=== PATIENT | female | born 1955 | race Caucasian/White ===

== ENCOUNTER 2019-07-25 07:26 | Outpatient (RCR) | payer MEDICARE, SELFPAY | END 2019-08-12 00:01 | LOC: ONCMED 07:26 | PROVIDERS: Family Provider Nurse Practitioner Family; Visit Provider Nurse Practitioner | DX: D50.0 Iron deficiency anemia secondary to blood loss (chronic) (principal) ==

== ENCOUNTER 2019-08-14 13:52 | Outpatient (CLI) | payer MEDICARE, SELFPAY ==
--- NOTE | 2019-08-14 14:07 | XR_ITS ---
WS: [id number] Left ankle, 3 views, 08/14/2019 Clinical Data: PAIN Comparison: None. Findings: No fractures or dislocations are seen. The ankle mortise is normal. The talus and calcaneus are unrem arkable. No soft tissue swelling over the medial or lateral malleolus is seen. XR/XR ankle LT min 3V* [id number] Impression: Negative left ankle.
--- NOTE | 2019-08-14 14:07 | XR_ITS ---
WS: [id number] Left foot, 3 views, 08/14/2019 Clinical Data: PAIN Comparison: None. Findings: No fractures or dislocations are seen. No bone destruction or erosion is noted. The joint spaces and soft tissues are normal. XR/XR foot LT min 3V* [id number] Impression: Negative left foot.
== END 2019-08-14 13:53 | disposition home or self-care (01) ==
LOC: RAD 14:01
PROVIDERS: PCP Nurse Practitioner Family; Visit Provider Internal Medicine Medical Oncology
DX: M79.672 Pain in left foot (principal); M25.572 Pain in left ankle and joints of left foot
CPT/HCPCS: 73610; 73630

== ENCOUNTER 2019-09-03 05:41 | Outpatient (RCR) | payer MEDICARE, SELFPAY ==
[2019-08-27 08:45] LABS: Basophils # 0.1 10^3/uL (0.0-0.1); Basophils % 0.6 %; Eosinophils # 0.1 10^3/uL (0.0-0.8); Eosinophils % 1.5 %; Hematocrit 29.7 % (37.0-47.0); Hemoglobin 8.8 g/dL (11.5-15.3); Lymphocytes # 1.6 10^3/uL (0.8-4.8); Lymphocytes % 17.1 %; Mean Corpuscular HGB Conc 29.6 g/dL (30.0-36.0); Mean Corpuscular Hemoglobin 29.2 pg (28.0-34.0); Mean Corpuscular Volume 98.7 fL (81-99); Monocytes # 0.4 10^3/uL (0.2-0.9); Monocytes % 4.2 %; Neutrophils # 7.3 10^3/uL (1.8-7.7); Neutrophils % 76.2 %; Nucleated Red Blood Cells % 0 %; Platelet Count 514 10^3/cmm (130-400); Red Blood Count 3.01 10^6/uL (4.1-5.3); Red Cell Distribution Width 15.3 % (12.1-15.1); White Blood Count 9.5 10^3/uL (4.0-10.0)
[2019-08-27 09:03] LABS: Albumin Level 4.4 g/dL (3.5-5.2); Alkaline Phosphatase 165 IU/L (35-105); Anion Gap 16.4 (5-19); Aspartate Amino Transferase 22 U/L (0-32); Blood Urea Nitrogen 7 mg/dL (8-23); Calcium 9.2 mg/Dl (8.8-10.2); Carbon Dioxide 23 mmol/L (22-29); Chloride 100 mmol/L (98-107); Ferritin 132 ng/mL (15-150); Globulin 2.6 g/dL (1.3-4.6); Glomerular Filtration Rate 72.7 mL/min (90-130); Glucose 122 mg/dL (74-106); Iron 27 ug/dL (37-145); Percent Saturation 11.5 % (20-50); Potassium 4.4 mmol/L (3.5-5.1); Sodium 135 mmol/L (136-145); Total Bilirubin 0.2 mg/dL (0.15-1.2); Total Iron Binding Capacity 233 mg/dL; Unsaturated Iron Binding 206 ug/dL (112-347)
[2019-08-27 09:14] LABS: Alanine Aminotransferase 11 U/L (0-33)
--- NOTE | 2019-08-31 09:37 | ONC FU_ITS ---
Dr. Valero Patient Follow-Up Note Patient: Emma Porras Unit #: [id number]: 1955 Dicatated By: Harshal Valero M.D.Date of Visit:Aug 27, 2019 Onc Med Follow-up/Prog Note Chief Complaint: Anemia. History of Present Illness: This is a 64 year-old woman with recurrent iron deficiency anemia. Her laboratory studies from November 2012 showed a hypochromic/microcytic anemia with transferrin saturation 3% and ferritin low at 2.5 ng/mL. By the time I had seen her in January the hemoglobin was down to 7.4 g. She was given parenteral iron replacement with Venofer, which she completed in February 2013. As of July 2013 her hemoglobin was up to 12.8 g. She underwent upper and lower GI endoscopy in November. The upper endoscopy did show evidence of gastritis, which was the presumed cause for the iron deficiency. There were no significant abnormalities noted on the colonoscopy. She did complain of generalized abdominal pain following the procedure, which continued to worsen gradually after she returned home. On evaluation in the emergency room she was found to have a subcapsular splenic hematoma. Her hemoglobin dropped to 6.0 g, at which point she was admitted to the hospital for transfusion. The hematoma stabilized, and she was able to be managed conservatively. Her clinical course, though, was complicated by transfusion associated lung injury, but she did recover uneventfully. During subsequent followup she had remained moderately anemic, and she had persistently elevated sedimentation rate and CRP level. She was treated again with Venofer in June 2014 after her hemoglobin had dropped back down to 8.4 g. With that course of treatment she received a total of 1400 mg, but a followup CBC in September 2014 showed that she was still moderately anemic with a hemoglobin of 9.8 g. At that point she was started back on Venofer infusions, and she then completed an additional 1200 mg total dosage. On a followup visit in November her hemoglobin was adequate at 11.6 g, but the transferrin saturation was back down to 5%, and at that time I did restart Venofer. As of 01/01/2015 she had completed another course of treatment to a total dose of 1000 mg. Following her course of parenteral iron replacement in December 2014 she underwent further GI evaluation in [place]. She was found on capsule endoscopy to have an actively bleeding AVM in the small intestine. On 04/07/2015 she underwent double-balloon enteroscopy with APC by Dr. Royer West. At that time she was confirmed to have multiple AVMs throughout the small intestine. According to the procedure note, APC was applied to a total of 8 AVMs. She tolerated the procedure well. During subsequent follow-up she had continued to require parenteral iron replacement on a fairly regular basis. This included 2 infusions of Injectafer during the remainder of 2014, a total of 4 infusions of Injectafer during 2015, 6 infusions during 2016, and 4 infusions during 2017. By the end of April she had received a total of 7 infusions during 2019. Her other medical illnesses include fibromyalgia, degenerative arthritis, GERD, and anxiety/depression. She does have a history of smoking up to 2 packs of cigarettes daily for 35 years. She has been trying to quit. INTERIM HISTORY: As of 06/02/2019 her hemoglobin was still moderately decreased at 9.4 g. Her transferrin saturation was low at 16%, and she was then given 1 additional infusion of Injectafer. At her follow-up visit on 07/03/2019 her hemoglobin had dropped to 7.7 g. The red cell indices were macrocytic with MCV 104 and MCH 31. Her transferrin saturation was normal at 34% and a ferritin was normal at 358 ng/mL. She was transfused 2 units PRBC. Her stool was retested and was negative for occult blood by IFOB. Her repeat CBC on 05/25/2019 showed hemoglobin moderately decreased at 10.4 g with white blood cell count 9500 and platelet count 493,000. The red cell indices were in the upper normal range. She is seen for a follow-up visit. She continues to complain that she is tired, but she is still working. ECOG score is 1. She does not have much appetite, but her weight is stable. She has no fever or night sweats. She says her breathing is fine. She has just occasional cough. She is still smoking 1 pack of cigarettes daily. She does not complain of chest pain. She has no GI complaints other than occasional heartburn. She says her stools are dark. She has not been aware of any blood in the stool. She has urinary frequency with some urgency/incontinence. She says her pain is terrible, mainly in the neck and back. She also has been having pain and swelling in her left ankle, and she complains that her left knee catches. She sometimes has headache. She occasionally has numbness in her feet. Medications: ALPRAZolam 1 Tablet (of 0.5 mg) Oral t.i.d. PRN, Ditropan XL 1 (10 mg) Tablet SR 24 HR Oral daily PRN, Estradiol 1 (1 mg) Tablet Oral daily, FLUoxetine HCl 3 Tablet (of 20 mg) Capsule Oral daily, HYDROcodone-Acetaminophen 1 Tablet (of 7.5-325 mg) Oral q 4 hours PRN, Montelukast Sodium 10 mg - Take 1 Tablet Oral daily, Protonix 1 (40 mg) Tablet, enteric coated Oral daily, Topiramate 25 mg - Take 1 Tablet Oral daily, Vitamin D3 2000 Units - Take 1 Tablet Oral daily Allergies: Codeine Phosphate and Penicillin G Benzathine. Review of Systems: Constitutional - She feels tired. She is working, though. Appetite has not been very good, but her weight is stable. No fever or night sweats. ECOG score is 1, ENMT - No sinus congestion/drainage. No mouth sores. No sore throat or difficulty swallowing, Hematologic/Lymphatic - She bruises easily, Respiratory - She says her breathing is fine. She has just occasional cough. No pleuritic pain or hemoptysis, Cardiovascular - No angina pain. No palpitations, Gastrointestinal - No nausea or vomiting. She sometimes has heartburn. Bowel have been OK, but her stools have been dark. She has not been aware of any blood in the stool, Genitourinary (F) - No dysuria or hematuria. She has urinary frequency and some urgency/incontinence, Musculoskeletal - She says her pain has been terrible, mostly in the back and neck. She also has pain in her left ankle, and she complains that her left knee catches, Integumentary - No skin complications, Neurologic - She sometimes has headache. She has dizziness if she turns too fast. She occasionally has numbness and in her feet, Psychiatric - Her depression is adequately managed. She sometimes has difficulty sleeping. Vital Signs: Performed on Aug 27, 2019 10:03 Height - 57.00 in Weight - 104.8 lbs (HIGH) BSA - 1.37 sq.m BMI - 22.68 Temperature - 98.5 F Pulse - 78 /min Respiration - 22 /min BP - 119/58 mm(hg) O2 Sat - 99 % Pain - 6 Physical Examination: Constitutional - She looks pretty good generally, Eyes - Sclerae nonicteric. Conjunctivae clear, ENMT - No lesions noted in the oral cavity, Hematologic/Lymphatic - No cervical, clavicular, or axillary adenopathy, Respiratory - Lungs are clear with diminished air movement bilaterally, Cardiovascular - Heart rhythm is regular. There is a II/ systolic murmur. There is no gallop or rub noted, Abdomen - Soft. Liver and spleen are not enlarged. There is no abdominal mass or ascites noted and there is no inguinal adenopathy, Extremities - No edema, Neurologic - No focal neurologic deficits noted. Lab/Imaging: Test performed on Aug 27, 2019 08:20 Ferritin 132 ng/mL % Iron Saturation 11.5 % Glucose 122 mg/dL BUN 7 mg/dL Iron, Total 27 mcg/dL Creatinine 0.8 mg/dL TIBC 233 mcg/dL Cr Clearance (Est) 54.72 mL/min Sodium 135 mmol/L Potassium 4.4 mmol/L Chloride 100 mmol/L CO2 23 mmol/L Calcium 9.2 mg/dL Protein, Total 7.0 g/dL Albumin 4.4 g/dL Bilirubin, Total 0.2 mg/dL Alkaline Phosphatase 165 IU/L AST (SGOT) 22 IU/L ALT (SGPT) 11 IU/L WBC 9.5 10^9/L RBC 3.01 10^12/L HGB 8.8 g/dL HCT 29.7 % MCV 98.7 fl MCH 29.2 pg MCHC 29.6 g/dL RDW 15.3 % Platelet Count 514 10^9/L MPV 10.0 fL Neutrophils (Gran) 7.3 10^9/L Lymphocytes 1.6 10^9/L Monocytes 0.4 10^9/L Eosinophils 0.1 10^9/L Basophils 0.1 10^9/L Manual Lymphocytes 17.1 % Manual Monocytes 4.2 % Manual Eosinophils 1.5 % Manual Basophils 0.6 % NRBCs 0.0 /100 WBC Impression: 1. Patient was initially seen in January 2013 for recurrent iron deficiency anemia. She had a good response to parenteral iron replacement with Venofer. Her previous GI evaluation with upper and lower endoscopy had shown evidence of gastritis, which was the presumed cause for the iron deficiency. 2. The colonoscopy procedure was complicated by a subcapsular splenic hematoma. It was able to be managed conservatively, but the hematoma did result in a significant drop in her hemoglobin level, and she did require admission to the hospital for transfusion. She subsequently developed acute transfusion related lung injury, but she did have a good recovery. 3. During subsequent follow-up she has had recurrent episodes of iron deficiency anemia. At least some component has been be due to GI blood loss. I have suspected that some component may be due to inadequate oral iron absorption. 4. In March she did undergo enteroscopy/APC for multiple small intestine AVMs. She tolerated the procedure well. On her follow-up visit in May 2015 she was significantly anemic again, with hemoglobin back down to 8.1 g. Chemistry studies were clearly consistent with iron deficiency. She was then given parenteral iron replacement with Injectafer, which she completed in June 2015. She again had a very good clinical response. 5. She required additional infusions of Injectafer in January 2016 and again in March/April 2016. Her other medical illnesses include: 6. GERD. 7. Degenerative arthritis/fibromyalgia with chronic pain. 8. Anxiety/depression. 9. She has nicotine dependence (cigarettes). During followup she has continued to have recurrent episodes of iron deficiency. She has been given parenteral parenteral iron replacement with Injectafer on multiple occasions. It is presumed to have been due to GI blood loss, though it has not actually been documented. In June 2019 her hemoglobin had dropped to as low as 7.7 g, at which point she was given a transfusion of 2 units PRBC. Her stool was subsequently retested and was negative for occult blood by IFOB. At this point she remains moderately anemic. Her transferrin saturation is back down to 11%, so that she may be iron deficient again. Plan: She will be given parenteral iron replacement with 2 infusions of Injectafer. If there is not significant improvement in her anemia, she will then be scheduled for bone marrow aspiration/biopsy. In the meantime, I will have her evaluated orthopedic clinic for her left ankle pain and swelling. Signed By: Harshal Valero M.D. <<Signature on File>>
[2019-09-03 11:24] LABS: Basophils # 0.1 10^3/uL (0.0-0.1); Basophils % 0.5 %; Eosinophils # 0.1 10^3/uL (0.0-0.8); Eosinophils % 1.3 %; Hematocrit 26.9 % (37.0-47.0); Hemoglobin 8.2 g/dL (11.5-15.3); Lymphocytes # 1.2 10^3/uL (0.8-4.8); Lymphocytes % 12.5 %; Mean Corpuscular HGB Conc 30.5 g/dL (30.0-36.0); Mean Corpuscular Hemoglobin 30.8 pg (28.0-34.0); Mean Corpuscular Volume 101.1 fL (81-99); Mean Platelet Volume 10.3 fL (7.4-10.4); Monocytes # 0.3 10^3/uL (0.2-0.9); Monocytes % 2.7 %; Neutrophils # 7.5 10^3/uL (1.8-7.7); Neutrophils % 81.5 %; Nucleated Red Blood Cells % 0 %; Platelet Count 470 10^3/cmm (130-400); Red Blood Count 2.66 10^6/uL (4.1-5.3); Red Cell Distribution Width 17.5 % (12.1-15.1); White Blood Count 9.2 10^3/uL (4.0-10.0)
[2019-09-03 11:34] LABS: Ferritin 584 ng/mL (15-150); Iron 58 ug/dL (37-145); Total Iron Binding Capacity 232 mg/dL; Unsaturated Iron Binding 174 ug/dL (112-347)
--- NOTE | 2019-09-04 06:42 | ONC FU_ITS ---
Dr. Valero Patient Follow-Up Note Patient: Emma Porras Unit #: [id number]: 1955 Dicatated By: Harshal Valero M.D.Date of Visit:Sep 03, 2019 Onc Med Follow-up/Prog Note Chief Complaint: Anemia. History of Present Illness: This is a 63 year-old woman with persistent anemia. Her laboratory studies from November 2012 showed a hypochromic/microcytic anemia with transferrin saturation 3% and ferritin low at 2.5 ng/mL. By the time I had seen her in January the hemoglobin was down to 7.4 g. She was given parenteral iron replacement with Venofer, which she completed in February 2013. As of July 2013 her hemoglobin was up to 12.8 g. She underwent upper and lower GI endoscopy in November. The upper endoscopy did show evidence of gastritis, which was the presumed cause for the iron deficiency. There were no significant abnormalities noted on the colonoscopy. She did complain of generalized abdominal pain following the procedure, which continued to worsen gradually after she returned home. On evaluation in the emergency room she was found to have a subcapsular splenic hematoma. Her hemoglobin dropped to 6.0 g, at which point she was admitted to the hospital for transfusion. The hematoma stabilized, and she was able to be managed conservatively. Her clinical course, though, was complicated by transfusion associated lung injury, but she did recover uneventfully. During subsequent followup she had remained moderately anemic, and she had persistently elevated sedimentation rate and CRP level. She was treated again with Venofer in June 2014 after her hemoglobin had dropped back down to 8.4 g. With that course of treatment she received a total of 1400 mg, but a followup CBC in September 2014 showed that she was still moderately anemic with a hemoglobin of 9.8 g. At that point she was started back on Venofer infusions, and she then completed an additional 1200 mg total dosage. On a followup visit in November her hemoglobin was adequate at 11.6 g, but the transferrin saturation was back down to 5%, and at that time I did restart Venofer. As of 01/01/2015 she had completed another course of treatment to a total dose of 1000 mg. Following her course of parenteral iron replacement in December 2014 she underwent further GI evaluation in [place]. She was found on capsule endoscopy to have an actively bleeding AVM in the small intestine. On 04/07/2015 she underwent double-balloon enteroscopy with APC by Dr. Royer West. At that time she was confirmed to have multiple AVMs throughout the small intestine. According to the procedure note, APC was applied to a total of 8 AVMs. She tolerated the procedure well. During subsequent follow-up she had continued to require parenteral iron replacement on a fairly regular basis. This included 2 infusions of Injectafer during the remainder of 2014, a total of 4 infusions of Injectafer during 2015, 6 infusions during 2016, and 4 infusions during 2017. By the end of April she had received a total of 7 infusions during 2019. Her other medical illnesses include fibromyalgia, degenerative arthritis, GERD, and anxiety/depression. Surgeries include hysterectomy/bilateral salpingo-oophorectomy in 1997, laparascopic cholecystectomy in 2007, and cystoscopy/anterior repair in January,. She underwent lumbar laminectomy in 2003 and cervical laminectomy/fusion in 2004. She also has had surgery on both elbows. She has a history of smoking up to 2 packs of cigarettes daily for 35 years. She has been trying to quit. Family history is significant for father having of pancreatic cancer at age 62 and mother having of lung cancer at age 76. A brother has hypertension and diabetes and a sister has heart disease. INTERIM HISTORY: As of 06/02/2019 her hemoglobin was still moderately decreased at 9.4 g. Her transferrin saturation was low at 16%, and she was then given 1 additional infusion of Injectafer. At her follow-up visit on 07/03/2019 her hemoglobin had dropped to 7.7 g. The red cell indices were macrocytic with MCV 104 and MCH 31. Her transferrin saturation was normal at 34% and a ferritin was normal at 358 ng/mL. She was transfused 2 units PRBC. Her stool was retested and was negative for occult blood by IFOB. Her repeat CBC on 07/25/2019 showed hemoglobin moderately decreased at 10.4 g with white blood cell count 9500 and platelet count 493,000. The red cell indices were in the upper normal range. As of 08/27/2019 the hemoglobin was back down to 8.8 g. Her serum iron studies at that point showed low transferrin saturation at 11.5%, and with that finding, I did opt to give her another infusion of Injectafer. She is seen for a follow-up visit. She continues to complain that she is tired, but she is still working. ECOG score is 1. She says her appetite is not that good. She does not have fever or night sweats. She does not complain of shortness of breath, cough, or chest pain. She has occasional heartburn, and she occasionally has pain in her lower abdominal area. Her stools have been loose, and they are still dark-colored. She did bring in another stool sample for IFOB, and that result is pending. She has urinary frequency and urgency. Her pain is about the same. Is mostly in her neck and back. She has headache occasionally. She has no focal neurologic symptoms. Medications: ALPRAZolam 1 Tablet (of 0.5 mg) Oral t.i.d. PRN, Ditropan XL 1 (10 mg) Tablet SR 24 HR Oral daily PRN, Estradiol 1 (1 mg) Tablet Oral daily, FLUoxetine HCl 3 Capsule (of 20 mg) Oral daily, HYDROcodone-Acetaminophen 1 Tablet (of 7.5-325 mg) Oral q 4 hours PRN, Montelukast Sodium 10 mg - Take 1 Tablet Oral daily, Protonix 1 (40 mg) Tablet, enteric coated Oral daily, Topiramate 25 mg - Take 1 Tablet Oral daily, Vitamin D3 2000 Units - Take 1 Tablet Oral daily Allergies: Codeine Phosphate and Penicillin G Benzathine. Review of Systems: Constitutional - She continues to complain that she is tired. She is still working, though. Appetite is not that good, but her weight is stable. No fever or night sweats. ECOG score is 1, ENMT - She has some sinus drainage, but not bad. No mouth sores. No sore throat or difficulty swallowing, Hematologic/Lymphatic - She bruises easily, Respiratory - No shortness of breath. No cough. No pleuritic pain or hemoptysis, Cardiovascular - No angina pain. No palpitations, Gastrointestinal - No nausea or vomiting. She has occasional heartburn. Her stools have been loose and they are still dark. She has not been aware of any blood in the stool, Genitourinary (F) - No dysuria or hematuria. She has urinary frequency and urgency, Musculoskeletal - Her pain is about the same. It is mostly in the back and neck, Integumentary - No skin complications, Neurologic - She has occasional headache. She has dizziness if she turns too fast. She sometimes has numbness and in her feet, Psychiatric - Her depression is adequately managed. She has been sleeping OK. Vital Signs: Performed on Sep 03, 2019 11:31 Height - 57.00 in Weight - 105.4 lbs (HIGH) BSA - 1.37 sq.m BMI - 22.81 Temperature - 97.1 F (LOW) Pulse - 73 /min Respiration - 18 /min BP - 145/62 mm(hg) (HIGH) O2 Sat - 100 % Pain - 0 Physical Examination: Constitutional - She does not appear acutely ill, Eyes - Sclerae nonicteric. Conjunctivae clear, ENMT - No lesions noted in the oral cavity, Hematologic/Lymphatic - No cervical, clavicular, or axillary adenopathy, Respiratory - Lungs are clear with diminished air movement bilaterally, Cardiovascular - Heart rhythm is regular. There is a II/ systolic murmur. There is no gallop or rub noted, Abdomen - Soft. Liver and spleen are not enlarged. There is no abdominal mass or ascites noted and there is no inguinal adenopathy, Extremities - No edema, Neurologic - No focal neurologic deficits noted. Lab/Imaging: Test performed on Sep 03, 2019 10:30 Ferritin 584 ng/mL WBC 9.2 10 3/uL RBC 2.66 10 6/uL HGB 8.2 g/dL HCT 26.9 % MCV 101.1 fL MCH 30.8 pg MCHC 30.5 g/dL RDW 17.5 % Platelet Count 470 10 3/cmm MPV 10.3 fL Neutrophils 7.5 10 3/uL Lymphocytes 1.2 10 3/uL Monocytes 0.3 10 3/uL Eosinophils 0.1 10 3/uL Basophils 0.1 10 3/uL Neutrophil % 81.5 % Lymphocyte % 12.5 % Monocyte % 2.7 % Eosinophil % 1.3 % Basophils % 0.5 % Impression: 1. Patient was initially seen in January 2013 for recurrent iron deficiency anemia. She had a good response to parenteral iron replacement with Venofer. Her previous GI evaluation with upper and lower endoscopy had shown evidence of gastritis, which was the presumed cause for the iron deficiency. 2. The colonoscopy procedure was complicated by a subcapsular splenic hematoma. It was able to be managed conservatively, but the hematoma did result in a significant drop in her hemoglobin level, and she did require admission to the hospital for transfusion. She subsequently developed acute transfusion related lung injury, but she did have a good recovery. 3. During subsequent follow-up she has had recurrent episodes of iron deficiency anemia. At least some component has been be due to GI blood loss. I have suspected that some component may be due to inadequate oral iron absorption. 4. In March she did undergo enteroscopy/APC for multiple small intestine AVMs. She tolerated the procedure well. On her follow-up visit in May 2015 she was significantly anemic again, with hemoglobin back down to 8.1 g. Chemistry studies were clearly consistent with iron deficiency. She was then given parenteral iron replacement with Injectafer, which she completed in June 2015. She again had a very good clinical response. 5. She required additional infusions of Injectafer in January 2016 and again in March/April 2016. Her other medical illnesses include: 6. GERD. 7. Degenerative arthritis/fibromyalgia with chronic pain. 8. Anxiety/depression. 9. She has nicotine dependence (cigarettes). During followup she has continued to have recurrent episodes of iron deficiency. She has been given parenteral parenteral iron replacement with Injectafer on multiple occasions. It is presumed to have been due to GI blood loss, though it has not actually been documented. In June 2019 her hemoglobin had dropped to as low as 7.7 g, at which point she was given a transfusion of 2 units PRBC. Her stool was subsequently retested and was negative for occult blood by IFOB. As of 08/27/2019 her hemoglobin was back down to 8.8 g. Her transferrin saturation was low at 11%. With that finding, she was given an infusion of Injectafer, and she returns today for a second Injectafer infusion. However, there has been further decline in her hemoglobin to 8.2 g, and in the absence of active blood loss, I would have to assume that iron deficiency is not the cause of her anemia. Plan: She will now be scheduled for bone marrow aspiration/biopsy with flow cytometry, cytogenetics, and a FISH panel for MDS. She will have further evaluation as indicated. Signed By: Harshal Valero M.D. <<Signature on File>>
== END 2019-09-12 23:59 | disposition home or self-care (01) ==
LOC: ONCMED 05:41
PROVIDERS: PCP Nurse Practitioner Family; Visit Provider Internal Medicine Medical Oncology
DX: D50.9 Iron deficiency anemia, unspecified (principal); M25.572 Pain in left ankle and joints of left foot; M79.7 Fibromyalgia; M19.90 Unspecified osteoarthritis, unspecified site; K21.9 Gastro-esophageal reflux disease without esophagitis; F41.8 Other specified anxiety disorders; Z98.1 Arthrodesis status; F17.210 Nicotine dependence, cigarettes, uncomplicated; F32.9 Major depressive disorder, single episode, unspecified; G89.29 Other chronic pain; Z79.891 Long term (current) use of opiate analgesic
CPT/HCPCS: 36415; 80053; 82274; 82728; 83540; 83550; 85025; 96365; 99214; J1439

== ENCOUNTER 2019-10-02 10:00 | Day surgery (SDC) | payer MEDICARE, SELFPAY ==
[2019-10-01 11:00] VITALS: BMI 22.7
--- NOTE | 2019-10-02 10:33 | ANES.PREANE2 ---
Pre-Anesthetic Assessment Pre-Anesthetic Assessment: Height/Weight: Height 1.45 m Weight 47.627 kg Proposed Procedure: Operation Date: 10/02/19 11:30 Proposed Procedures p Bone Marrow Biospy With Aspiration(Not Applicable) - Farrukh Barahona MD Social: Social History: Tobacco and No alcohol Exam: Pre-Anes Outpt Exam: alert, oriented x 3, clear to auscultation bilaterally and regular rate & rhythm Airway: Submandibular: WNL Cervical ROM: WNL MP: 1 Dentition: False (upper) and Other (poor dentation) History/ROS: No significant history except as noted Pulmonary: Pulmonary: COPD CV/HEM: CV/HEM: Anemia : : None reported Hepatic: Hepatic: None reported GI: GI: GERD (not well controlled) Metabolic: Metabolic: None reported Musc/skel: Musc/skel: OA/DJD Neuropsych: Neuropsych: Anxiety and Depression Anesthetic Plan: ASA status: 3 Anesthesia: Anesthesia Evaluation and MAC Risk of > 500 ml blood loss (7ml/kg in children): No PFSH Anesthesia PFSH: Medical History History of anemia History of gallbladder disease Surgical History History of back surgery History of elbow surgery History of neck surgery History of shoulder surgery Family History Grandmother Cancer Brother Diabetes Denies family history of Anesthesia complication Stroke Social History Smoking and tobacco status: current every day smoker Alcohol intake: never Household members: none Current occupational status: employed Current occupation: [employer] An[employer] Cardiac Studies: No Data to Display
[2019-10-02 10:53] VITALS: BP 149/59; PULSE 72; RESP 20; TEMP 36.5; O2SAT 97
[2019-10-02] MEDS: sodium chloride 0.9% 1,000 ML 30 ML (11:12)
[2019-10-02 11:44] LABS: Hematocrit 32.4 % (37.0-47.0); Hemoglobin 10.2 g/dL (11.5-15.3); Mean Corpuscular HGB Conc 31.5 g/dL (30.0-36.0); Mean Corpuscular Hemoglobin 32.8 pg (28.0-34.0); Mean Corpuscular Volume 104.2 fL (81-99); Mean Platelet Volume 10.1 fL (7.4-10.4); Platelet Count 489 10^3/cmm (130-400); Red Blood Count 3.11 10^6/uL (4.1-5.3); Red Cell Distribution Width 15.2 % (12.1-15.1); White Blood Count 8.5 10^3/uL (4.0-10.0)
[2019-10-02 12:08] VITALS: BP 116/57; PULSE 71; RESP 16; TEMP 36.3; O2SAT 99
--- NOTE | 2019-10-02 12:14 | ANE.PACU2 ---
 Inpatient post-anesthesia follow up: Airway intact: Yes Vital signs: Temperature 97.3 F Pulse Rate 71 Respiratory Rate 16 Blood Pressure 116/57 Pulse Oximetry 99 Oxygen Delivery Me thod Nasal Cannula Oxygen Flow Rate 3 Fraction of Inspir ed Oxygen Hydration adequate: Yes Nausea and vomiting: No Pain level: 1 Mental status: Baseline
[2019-10-02 12:21] VITALS: BP 130/68; PULSE 79; RESP 18; O2SAT 100
[2019-10-02 12:30] LABS: Absolute Eosinophils 0.1 10^3/cmm (0.0-0.7); Absolute Segmented Neutrophil 6.2 10/cmm (1.6-7.1); Band Neutrophils Absolute 0.8 10^3/cmm (0.0-1.2); Basophils Absolute 0.1 10^3/cmm (0.0-0.2); Eosinophils 2 %; Lymphocytes 11 %; Monocytes Absolute 0.3 10^3/cmm (0.1-0.6); Segmented Neutrophils 74 %; Total Cells Counted 100 (0-100)
[2019-10-02 12:31] LABS: Platelet Estimate Increased (Normal)
--- NOTE | 2019-10-02 16:25 | P.PCN_ITS ---
Bone Marrow Biopsy Bone Marrow Biopsy: I was consulted by [] office regarding bone marrow biopsy on [Emma chappell]. Briefly, the patient is a [64-] year old [Female] with [History of anemia]. In the Outpatient Services Department, with nursing staff and laboratory technologists in attendance, the procedure was discussed with the patient. Appropriate consent form had been signed. Appropriate alternatives, benefits and risks of procedure were discussed with the patient and she was pre- operatively assessed with a history and physical by myself and cleared for the biopsy procedure. The patient did request IV sedation and that was provided by the Anesthesia Department. And right posterior iliac area was cleaned and prepped, local anesthesia was given, 15 mL of bone marrow aspirate and core biopsy was obtained, hemostasis was obtained, patient tolerated procedure well, specimen was sent for routine histopathology, flow cytometry and cytogenetics and FISH for MDS. Postprocedure instructions were given to nursing. Thank you for allowing me to participate in this patient's care and diagnosis. Coding Level of Care Code Acute Set Key Driver for Leticia Morse
[2019-10-07 10:28] LABS: Miscellaneous Test See Scanned Lab Rpt
[2019-10-15 09:40] LABS: Clinical Indication See Report; Specimen Type See Report
[2019-10-15 09:41] LABS: Miscellaneous Test See Scanned Lab Rpt
== END 2019-10-02 12:36 | disposition home or self-care (01) ==
PROVIDERS: Internal Medicine Medical Oncology; PCP Nurse Practitioner Family; Visit Provider Internal Medicine Hematology & Oncology
PROC: 07DT3ZX Extraction of Bone Marrow, Percutaneous Approach, Diagnostic (ICD-10-PCS; CPT 38222; principal; 2019-10-02 11:30)
DX: D64.9 Anemia, unspecified (principal); J44.9 Chronic obstructive pulmonary disease, unspecified; K21.9 Gastro-esophageal reflux disease without esophagitis; M19.90 Unspecified osteoarthritis, unspecified site; Z83.3 Family history of diabetes mellitus; F17.210 Nicotine dependence, cigarettes, uncomplicated; Z79.891 Long term (current) use of opiate analgesic; M79.7 Fibromyalgia; G89.29 Other chronic pain; F41.9 Anxiety disorder, unspecified; F32.9 Major depressive disorder, single episode, unspecified
CPT/HCPCS: 12345; 36415; 38222; 85007; 85027; 85097; 88184; 88185; 88237; 88264; 88305; 88311; 88313; J2704; J7030

== ENCOUNTER 2019-12-10 08:15 | Outpatient (RCR) | payer MEDICARE, SELFPAY ==
[2019-11-19 12:01] LABS: Basophils # 0.1 10^3/uL (0.0-0.1); Basophils % 0.9 %; Eosinophils # 0.3 10^3/uL (0.0-0.8); Eosinophils % 4.4 %; Hematocrit 21.3 % (37.0-47.0); Lymphocytes # 1.3 10^3/uL (0.8-4.8); Mean Corpuscular HGB Conc 29.1 g/dL (30.0-36.0); Mean Corpuscular Hemoglobin 28.7 pg (28.0-34.0); Mean Corpuscular Volume 98.6 fL (81-99); Mean Platelet Volume 10.5 fL (7.4-10.4); Monocytes # 0.3 10^3/uL (0.2-0.9); Neutrophils # 5.6 10^3/uL (1.8-7.7); Neutrophils % 72.8 %; Nucleated Red Blood Cells % 0 %; Platelet Count 520 10^3/cmm (130-400); Red Blood Count 2.16 10^6/uL (4.1-5.3); Red Cell Distribution Width 16.5 % (12.1-15.1); White Blood Count 7.7 10^3/uL (4.0-10.0)
[2019-11-19 12:19] LABS: Chloride 98 mmol/L (98-107); Potassium 4.5 mmol/L (3.5-5.1); Sodium 133 mmol/L (136-145)
[2019-11-19 12:22] LABS: Hemoglobin 6.2 g/dL (11.5-15.3)
[2019-11-19 13:05] LABS: Alanine Aminotransferase 18 U/L (0-33); Albumin Level 3.9 g/dL (3.5-5.2); Alkaline Phosphatase 230 IU/L (35-105); Anion Gap 15.5 (5-19); Aspartate Amino Transferase 26 U/L (0-32); Blood Urea Nitrogen 12 mg/dL (8-23); Calcium 9.1 mg/dL (8.5-10.5); Carbon Dioxide 21 mmol/L (22-29); Globulin 2.8 g/dL (1.3-4.6); Glomerular Filtration Rate 56.2 mL/min (90-130); Glucose 92 mg/dL (65-115); Lactate Dehydrogenase 230 U/L (135-214); Osmolality Calculated 266 mOsm/kg (285-295); Total Bilirubin 0.2 mg/dL (0.15-1.2); Total Protein 6.7 g/dL (6.6-8.7)
[2019-11-19 13:26] LABS: Ferritin 120 ng/mL (15-150); Iron 34 ug/dL (37-145); Percent Saturation 14.4 % (20-50); Total Iron Binding Capacity 235 mcg/dl; Unsaturated Iron Binding 201 ug/dL (112-347)
[2019-11-20] VITALS (10 sets, daily range): BP systolic 114–149; BP diastolic 65–73; PULSE 67–76; RESP 18; TEMP 36.1–36.7; O2SAT 98–100
[2019-11-20] MEDS: acetaminophen 325 mg Tablet 650 MG PO (13:04)
[2019-11-20] MEDS: diphenhydrAMINE 25 mg Capsule PO (13:04)
[2019-11-20] MEDS: sodium chloride 0.9% 250 ML 999 ML IV (13:04)
[2019-11-20] MEDS: FUROsemide 10 mg/mL SDV 2mL 20 MG IV (14:46)
[2019-12-03 19:31] LABS: Basophils # 0.1 10^3/uL (0.0-0.1); Basophils % 0.6 %; Eosinophils # 0.1 10^3/uL (0.0-0.8); Eosinophils % 1.5 %; Hematocrit 32.7 % (37.0-47.0); Hemoglobin 10.1 g/dL (11.5-15.3); Lymphocytes # 1.9 10^3/uL (0.8-4.8); Mean Corpuscular HGB Conc 30.9 g/dL (30.0-36.0); Mean Corpuscular Hemoglobin 29.3 pg (28.0-34.0); Mean Corpuscular Volume 94.8 fL (81-99); Mean Platelet Volume 10.4 fL (7.4-10.4); Monocytes # 0.3 10^3/uL (0.2-0.9); Monocytes % 3.8 %; Neutrophils # 6.4 10^3/uL (1.8-7.7); Neutrophils % 72.8 %; Nucleated Red Blood Cells % 0 %; Platelet Count 560 10^3/cmm (130-400); Red Blood Count 3.45 10^6/uL (4.1-5.3); Red Cell Distribution Width 14.2 % (12.1-15.1); White Blood Count 8.8 10^3/uL (4.0-10.0)
[2019-12-10 20:06] LABS: Basophils # 0.1 10^3/uL (0.0-0.1); Basophils % 0.6 %; Eosinophils # 0.2 10^3/uL (0.0-0.8); Eosinophils % 1.8 %; Hematocrit 31.1 % (37.0-47.0); Hemoglobin 9.6 g/dL (11.5-15.3); Lymphocytes # 1.9 10^3/uL (0.8-4.8); Lymphocytes % 22.5 %; Mean Corpuscular HGB Conc 30.9 g/dL (30.0-36.0); Mean Corpuscular Hemoglobin 28.7 pg (28.0-34.0); Mean Corpuscular Volume 93.1 fL (81-99); Mean Platelet Volume 10.4 fL (7.4-10.4); Monocytes # 0.5 10^3/uL (0.2-0.9); Monocytes % 5.8 %; Neutrophils # 5.7 10^3/uL (1.8-7.7); Neutrophils % 68.8 %; Nucleated Red Blood Cells % 0 %; Platelet Count 640 10^3/cmm (130-400); Red Blood Count 3.34 10^6/uL (4.1-5.3); Red Cell Distribution Width 14.2 % (12.1-15.1); White Blood Count 8.3 10^3/uL (4.0-10.0)
== END 2019-12-11 23:59 | disposition home or self-care (01) ==
LOC: ONCMED 08:15
PROVIDERS: PCP Nurse Practitioner Family; Visit Provider Internal Medicine Medical Oncology
DX: D64.9 Anemia, unspecified (principal)
CPT/HCPCS: 36415; 36430; 80053; 82728; 83540; 83550; 83615; 85025; 86850; 86900; 86920; J1940; J7050; P9016

== ENCOUNTER 2020-01-08 06:46 | Outpatient (RCR) | payer MEDICARE, SELFPAY ==
[2019-12-17 17:34] LABS: Basophils # 0.1 10^3/uL (0.0-0.1); Basophils % 0.6 %; Eosinophils # 0.2 10^3/uL (0.0-0.8); Eosinophils % 1.4 %; Hematocrit 25.4 % (37.0-47.0); Hemoglobin 7.6 g/dL (11.5-15.3); Lymphocytes # 2.1 10^3/uL (0.8-4.8); Mean Corpuscular HGB Conc 29.9 g/dL (30.0-36.0); Mean Corpuscular Hemoglobin 28.3 pg (28.0-34.0); Mean Corpuscular Volume 94.4 fL (81-99); Mean Platelet Volume 10.4 fL (7.4-10.4); Monocytes # 0.6 10^3/uL (0.2-0.9); Monocytes % 4.8 %; Neutrophils # 9.3 10^3/uL (1.8-7.7); Neutrophils % 75.5 %; Nucleated Red Blood Cells % 0 %; Platelet Count 656 10^3/cmm (130-400); Red Blood Count 2.69 10^6/uL (4.1-5.3); Red Cell Distribution Width 15.2 % (12.1-15.1); White Blood Count 12.3 10^3/uL (4.0-10.0)
[2019-12-18] VITALS (9 sets, daily range): BP systolic 105–138; BP diastolic 62–76; PULSE 73–84; RESP 17–18; TEMP 36.2–36.8; O2SAT 98–99
[2019-12-18] MEDS: sodium chloride 0.9% 250 ML 999 ML IV (13:00)
[2019-12-18] MEDS: acetaminophen 325 mg Tablet 650 MG PO (13:00)
[2019-12-18] MEDS: diphenhydrAMINE 25 mg Capsule PO (13:14)
[2019-12-30 10:46] LABS: Basophils # 0.1 10^3/uL (0.0-0.1); Basophils % 0.5 %; Eosinophils # 0.2 10^3/uL (0.0-0.8); Eosinophils % 1.3 %; Hematocrit 29.2 % (37.0-47.0); Hemoglobin 9.1 g/dL (11.5-15.3); Lymphocytes # 1.5 10^3/uL (0.8-4.8); Lymphocytes % 13.7 %; Mean Corpuscular HGB Conc 31.2 g/dL (30.0-36.0); Mean Corpuscular Hemoglobin 28.6 pg (28.0-34.0); Mean Corpuscular Volume 91.8 fL (81-99); Mean Platelet Volume 10.6 fL (7.4-10.4); Monocytes # 0.4 10^3/uL (0.2-0.9); Monocytes % 3.5 %; Neutrophils % 80.6 %; Nucleated Red Blood Cells % 0 %; Platelet Count 589 10^3/cmm (130-400); Red Blood Count 3.18 10^6/uL (4.1-5.3); Red Cell Distribution Width 14.1 % (12.1-15.1); White Blood Count 11.2 10^3/uL (4.0-10.0)
[2020-01-06 16:03] LABS: Basophils # 0.1 10^3/uL (0.0-0.1); Basophils % 0.3 %; Eosinophils % 0.1 %; Mean Corpuscular HGB Conc 30.8 g/dL (30.0-36.0); Mean Corpuscular Hemoglobin 29.1 pg (28.0-34.0); Mean Corpuscular Volume 94.5 fL (81-99); Mean Platelet Volume 10.6 fL (7.4-10.4); Monocytes # 0.9 10^3/uL (0.2-0.9); Monocytes % 2.8 %; Neutrophils # 29.9 10^3/uL (1.8-7.7); Nucleated Red Blood Cells % 0.1 %; Platelet Count 690 10^3/cmm (130-400); Red Blood Count 2.75 10^6/uL (4.1-5.3); Red Cell Distribution Width 15.4 % (12.1-15.1)
[2020-01-06 17:00] LABS: White Blood Count 32.1 10^3/uL (4.0-10.0)
[2020-01-07 09:33] LABS: LAB Peripheral Smear Sent for Review
[2020-01-08] MEDS: sodium chloride 0.9% 250 ML 999 ML IV (08:20)
[2020-01-08 08:30] VITALS: BP 96/43; PULSE 79; RESP 18; TEMP 37.1; O2SAT 99
[2020-01-08] MEDS: acetaminophen 325 mg Tablet 650 MG PO (08:38)
[2020-01-08 09:00] VITALS: BP 103/40; PULSE 75; RESP 18; TEMP 36.8; O2SAT 99
[2020-01-08 09:30] VITALS: BP 107/52; PULSE 75; RESP 18; TEMP 36.7; O2SAT 99
[2020-01-08 09:50] VITALS: BP 107/52; PULSE 75; RESP 18; TEMP 36.7; O2SAT 99
[2020-01-08 10:15] VITALS: BP 116/46; PULSE 72; RESP 18; TEMP 36.9; O2SAT 100
[2020-01-08] MEDS: diphenhydrAMINE 25 mg Capsule PO (15:51)
[2020-01-08] MEDS: FUROsemide 10 mg/mL SDV 2mL 20 MG IV (15:52)
== END 2020-01-11 23:59 | disposition home or self-care (01) ==
LOC: ONCMED 06:46
PROVIDERS: Internal Medicine Medical Oncology; PCP Nurse Practitioner Family; Visit Provider Nurse Practitioner
DX: D50.0 Iron deficiency anemia secondary to blood loss (chronic) (principal); F41.9 Anxiety disorder, unspecified; F32.9 Major depressive disorder, single episode, unspecified; M79.7 Fibromyalgia; K21.9 Gastro-esophageal reflux disease without esophagitis
CPT/HCPCS: 36430; 82274; 85025; 86850; 86900; 86920; J1940; J7050; P9016

== ENCOUNTER 2020-02-10 06:49 | Outpatient (RCR) | payer MEDICARE, SELFPAY ==
[2020-01-13 12:05] LABS: Basophils % 0.5 %; Eosinophils # 0.1 10^3/uL (0.0-0.8); Eosinophils % 1.1 %; Hematocrit 37.8 % (37.0-47.0); Hemoglobin 11.9 g/dL (11.5-15.3); Lymphocytes # 1.2 10^3/uL (0.8-4.8); Lymphocytes % 16.7 %; Mean Corpuscular HGB Conc 31.5 g/dL (30.0-36.0); Mean Corpuscular Volume 92.2 fL (81-99); Mean Platelet Volume 9.7 fL (7.4-10.4); Monocytes # 0.3 10^3/uL (0.2-0.9); Monocytes % 4.2 %; Neutrophils # 5.7 10^3/uL (1.8-7.7); Nucleated Red Blood Cells % 0 %; Platelet Count 569 10^3/cmm (130-400); Red Cell Distribution Width 14.5 % (12.1-15.1); White Blood Count 7.4 10^3/uL (4.0-10.0)
[2020-01-20 14:01] LABS: Basophils % 0.4 %; Eosinophils # 0.2 10^3/uL (0.0-0.8); Eosinophils % 1.7 %; Hematocrit 34.4 % (37.0-47.0); Hemoglobin 11.1 g/dL (11.5-15.3); Lymphocytes % 20.9 %; Mean Corpuscular HGB Conc 32.3 g/dL (30.0-36.0); Mean Corpuscular Hemoglobin 29.8 pg (28.0-34.0); Mean Corpuscular Volume 92.2 fL (81-99); Mean Platelet Volume 9.7 fL (7.4-10.4); Monocytes # 0.4 10^3/uL (0.2-0.9); Monocytes % 4.2 %; Neutrophils # 6.9 10^3/uL (1.8-7.7); Neutrophils % 72.5 %; Nucleated Red Blood Cells % 0 %; Platelet Count 549 10^3/cmm (130-400); Red Blood Count 3.73 10^6/uL (4.1-5.3); Red Cell Distribution Width 14.5 % (12.1-15.1); White Blood Count 9.6 10^3/uL (4.0-10.0)
[2020-01-27 14:06] LABS: Basophils # 0.1 10^3/uL (0.0-0.1); Basophils % 0.7 %; Eosinophils # 0.2 10^3/uL (0.0-0.8); Hematocrit 25.5 % (37.0-47.0); Hemoglobin 7.9 g/dL (11.5-15.3); Mean Corpuscular Hemoglobin 28.6 pg (28.0-34.0); Mean Corpuscular Volume 92.4 fL (81-99); Mean Platelet Volume 10.2 fL (7.4-10.4); Monocytes # 0.4 10^3/uL (0.2-0.9); Monocytes % 3.5 %; Neutrophils # 7.4 10^3/uL (1.8-7.7); Neutrophils % 73.3 %; Nucleated Red Blood Cells % 0 %; Platelet Count 551 10^3/cmm (130-400); Red Blood Count 2.76 10^6/uL (4.1-5.3); Red Cell Distribution Width 15.2 % (12.1-15.1); White Blood Count 10.1 10^3/uL (4.0-10.0)
[2020-01-29 13:00] VITALS: BP 125/48; PULSE 87; RESP 18; TEMP 36.6; O2SAT 100
[2020-01-29] MEDS: sodium chloride 0.9% 250 ML 999 ML IV (13:00)
[2020-01-29] MEDS: acetaminophen 325 mg Tablet 650 MG PO (13:00)
[2020-01-29] MEDS: diphenhydrAMINE 25 mg Capsule PO (16:58)
[2020-01-29] MEDS: FUROsemide 10 mg/mL SDV 2mL 20 MG IV (16:59)
[2020-02-03 14:11] LABS: Basophils # 0.1 10^3/uL (0.0-0.1); Basophils % 0.7 %; Eosinophils # 0.2 10^3/uL (0.0-0.8); Eosinophils % 1.7 %; Hematocrit 32.8 % (37.0-47.0); Hemoglobin 10.8 g/dL (11.5-15.3); Lymphocytes # 1.8 10^3/uL (0.8-4.8); Lymphocytes % 18.4 %; Mean Corpuscular HGB Conc 32.9 g/dL (30.0-36.0); Mean Corpuscular Hemoglobin 30.3 pg (28.0-34.0); Mean Corpuscular Volume 92.1 fL (81-99); Mean Platelet Volume 10.5 fL (7.4-10.4); Monocytes # 0.5 10^3/uL (0.2-0.9); Monocytes % 5.5 %; Neutrophils # 7.2 10^3/uL (1.8-7.7); Neutrophils % 73.3 %; Nucleated Red Blood Cells % 0 %; Platelet Count 440 10^3/cmm (130-400); Red Blood Count 3.56 10^6/uL (4.1-5.3); Red Cell Distribution Width 15.4 % (12.1-15.1); White Blood Count 9.9 10^3/uL (4.0-10.0)
[2020-02-10 15:10] LABS: Basophils # 0.1 10^3/uL (0.0-0.1); Basophils % 0.5 %; Eosinophils # 0.2 10^3/uL (0.0-0.8); Eosinophils % 1.8 %; Hematocrit 29.9 % (37.0-47.0); Hemoglobin 9.7 g/dL (11.5-15.3); Lymphocytes # 1.7 10^3/uL (0.8-4.8); Lymphocytes % 18.2 %; Mean Corpuscular HGB Conc 32.4 g/dL (30.0-36.0); Mean Corpuscular Hemoglobin 30.4 pg (28.0-34.0); Mean Corpuscular Volume 93.7 fL (81-99); Mean Platelet Volume 10.2 fL (7.4-10.4); Monocytes # 0.4 10^3/uL (0.2-0.9); Monocytes % 4.1 %; Nucleated Red Blood Cells % 0 %; Platelet Count 501 10^3/cmm (130-400); Red Blood Count 3.19 10^6/uL (4.1-5.3); Red Cell Distribution Width 15.2 % (12.1-15.1); White Blood Count 9.4 10^3/uL (4.0-10.0)
== END 2020-02-10 23:59 | disposition home or self-care (01) ==
LOC: ONCMED 06:49
PROVIDERS: PCP Nurse Practitioner Family; Visit Provider Internal Medicine Medical Oncology
DX: D64.9 Anemia, unspecified (principal)
CPT/HCPCS: 36415; 36430; 85025; 86850; 86900; 86920; J1940; J7050; P9016

== ENCOUNTER 2020-03-10 08:35 | Outpatient (RCR) | payer MEDICARE, SELFPAY ==
[2020-02-17 08:59] LABS: Basophils # 0.1 10^3/uL (0.0-0.1); Basophils % 0.7 %; Eosinophils # 0.2 10^3/uL (0.0-0.8); Eosinophils % 1.7 %; Hematocrit 34.3 % (37.0-47.0); Hemoglobin 10.7 g/dL (11.5-15.3); Lymphocytes # 1.6 10^3/uL (0.8-4.8); Lymphocytes % 15.7 %; Mean Corpuscular HGB Conc 31.2 g/dL (30.0-36.0); Mean Corpuscular Hemoglobin 29.6 pg (28.0-34.0); Mean Corpuscular Volume 94.8 fL (81-99); Mean Platelet Volume 10.1 fL (7.4-10.4); Monocytes # 0.4 10^3/uL (0.2-0.9); Monocytes % 4.1 %; Neutrophils # 7.6 10^3/uL (1.8-7.7); Neutrophils % 77.4 %; Nucleated Red Blood Cells % 0 %; Platelet Count 583 10^3/cmm (130-400); Red Blood Count 3.62 10^6/uL (4.1-5.3); Red Cell Distribution Width 15.3 % (12.1-15.1); White Blood Count 9.9 10^3/uL (4.0-10.0)
[2020-02-24 08:21] LABS: Basophils # 0.1 10^3/uL (0.0-0.1); Basophils % 0.5 %; Eosinophils # 0.2 10^3/uL (0.0-0.8); Eosinophils % 1.7 %; Hematocrit 29.2 % (37.0-47.0); Hemoglobin 9.1 g/dL (11.5-15.3); Lymphocytes # 1.5 10^3/uL (0.8-4.8); Lymphocytes % 15.4 %; Mean Corpuscular HGB Conc 31.2 g/dL (30.0-36.0); Mean Corpuscular Hemoglobin 29.8 pg (28.0-34.0); Mean Corpuscular Volume 95.7 fL (81-99); Mean Platelet Volume 10.4 fL (7.4-10.4); Monocytes # 0.5 10^3/uL (0.2-0.9); Monocytes % 4.8 %; Neutrophils # 7.49 10^3/uL (1.8-7.7); Neutrophils % 76.9 %; Nucleated Red Blood Cells % 0 %; Platelet Count 519 10^3/cmm (130-400); Red Blood Count 3.05 10^6/uL (4.1-5.3); Red Cell Distribution Width 15.3 % (12.1-15.1); White Blood Count 9.8 10^3/uL (4.0-10.0)
[2020-03-02 08:40] LABS: Basophils # 0.1 10^3/uL (0.0-0.1); Basophils % 0.6 %; Eosinophils # 0.3 10^3/uL (0.0-0.8); Hematocrit 28.2 % (37.0-47.0); Hemoglobin 8.5 g/dL (11.5-15.3); Lymphocytes # 1.4 10^3/uL (0.8-4.8); Mean Corpuscular HGB Conc 30.1 g/dL (30.0-36.0); Mean Corpuscular Hemoglobin 28.6 pg (28.0-34.0); Mean Corpuscular Volume 94.9 fL (81-99); Mean Platelet Volume 10.6 fL (7.4-10.4); Monocytes # 0.4 10^3/uL (0.2-0.9); Monocytes % 5.1 %; Neutrophils # 6.49 10^3/uL (1.8-7.7); Neutrophils % 74.8 %; Nucleated Red Blood Cells % 0 %; Platelet Count 568 10^3/cmm (130-400); Red Blood Count 2.97 10^6/uL (4.1-5.3); Red Cell Distribution Width 15.7 % (12.1-15.1); White Blood Count 8.7 10^3/uL (4.0-10.0)
[2020-03-09 11:33] LABS: Basophils % 0.6 %; Eosinophils # 0.2 10^3/uL (0.0-0.8); Eosinophils % 2.3 %; Hematocrit 24.5 % (37.0-47.0); Hemoglobin 7.3 g/dL (11.5-15.3); Lymphocytes # 1.5 10^3/uL (0.8-4.8); Lymphocytes % 21.2 %; Mean Corpuscular HGB Conc 29.8 g/dL (30.0-36.0); Mean Corpuscular Hemoglobin 28.3 pg (28.0-34.0); Mean Platelet Volume 10.3 fL (7.4-10.4); Monocytes # 0.4 10^3/uL (0.2-0.9); Monocytes % 5.8 %; Neutrophils % 69.7 %; Nucleated Red Blood Cells % 0 %; Platelet Count 615 10^3/cmm (130-400); Red Blood Count 2.58 10^6/uL (4.1-5.3); Red Cell Distribution Width 15.9 % (12.1-15.1); White Blood Count 6.9 10^3/uL (4.0-10.0)
[2020-03-10] VITALS (7 sets, daily range): BP systolic 95–151; BP diastolic 53–82; PULSE 72–84; RESP 18; TEMP 36.9–37; O2SAT 98–99
[2020-03-10] MEDS: acetaminophen 325 mg Tablet 650 MG PO (13:20)
[2020-03-10] MEDS: sodium chloride 0.9% 250 ML 999 ML IV (13:20)
[2020-03-10] MEDS: FUROsemide 10 mg/mL SDV 2mL 20 MG IV (16:26)
[2020-03-10] MEDS: diphenhydrAMINE 25 mg Capsule PO (16:26)
== END 2020-03-12 23:59 | disposition home or self-care (01) ==
LOC: ONCMED 08:35
PROVIDERS: Internal Medicine Medical Oncology; PCP Nurse Practitioner Family; Visit Provider Nurse Practitioner
DX: D64.9 Anemia, unspecified (principal)
CPT/HCPCS: 36415; 36430; 85025; 86850; 86900; 86920; J1940; J7050; P9016

== ENCOUNTER 2020-04-06 05:40 | Outpatient (RCR) | payer MEDICARE, SELFPAY ==
[2020-03-16 08:25] LABS: Basophils # 0.1 10^3/uL (0.0-0.1); Basophils % 0.8 %; Eosinophils # 0.2 10^3/uL (0.0-0.8); Eosinophils % 2.2 %; Hematocrit 31.5 % (37.0-47.0); Hemoglobin 9.6 g/dL (11.5-15.3); Lymphocytes # 1.4 10^3/uL (0.8-4.8); Lymphocytes % 18.5 %; Mean Corpuscular HGB Conc 30.5 g/dL (30.0-36.0); Mean Corpuscular Hemoglobin 28.7 pg (28.0-34.0); Mean Corpuscular Volume 94.3 fL (81-99); Monocytes # 0.4 10^3/uL (0.2-0.9); Monocytes % 5.4 %; Neutrophils # 5.56 10^3/uL (1.8-7.7); Neutrophils % 72.7 %; Nucleated Red Blood Cells % 0 %; Platelet Count 460 10^3/cmm (130-400); Red Blood Count 3.34 10^6/uL (4.1-5.3); Red Cell Distribution Width 16.1 % (12.1-15.1); White Blood Count 7.6 10^3/uL (4.0-10.0)
[2020-03-22 15:12] LABS: Basophils # 0.1 10^3/uL (0.0-0.1); Basophils % 0.6 %; Eosinophils # 0.2 10^3/uL (0.0-0.8); Hematocrit 26.5 % (37.0-47.0); Lymphocytes # 1.8 10^3/uL (0.8-4.8); Lymphocytes % 22.4 %; Mean Corpuscular HGB Conc 30.2 g/dL (30.0-36.0); Mean Corpuscular Volume 92.7 fL (81-99); Mean Platelet Volume 10.6 fL (7.4-10.4); Monocytes # 0.4 10^3/uL (0.2-0.9); Neutrophils # 5.69 10^3/uL (1.8-7.7); Neutrophils % 69.8 %; Nucleated Red Blood Cells % 0 %; Platelet Count 560 10^3/cmm (130-400); Red Blood Count 2.86 10^6/uL (4.1-5.3); Red Cell Distribution Width 15.6 % (12.1-15.1); White Blood Count 8.2 10^3/uL (4.0-10.0)
[2020-03-22 15:23] LABS: Alanine Aminotransferase 17 U/L (0-33); Alkaline Phosphatase 179 IU/L (35-105); Anion Gap 13.5 (5-19); Aspartate Amino Transferase 20 U/L (0-32); Blood Urea Nitrogen 6 mg/dL (8-23); Calcium 8.4 mg/dL (8.5-10.5); Carbon Dioxide 23 mmol/L (22-29); Chloride 101 mmol/L (98-107); Ferritin 41 ng/mL (15-150); Globulin 3.2 g/dL (1.3-4.6); Glomerular Filtration Rate 63.4 mL/min (90-130); Glucose 129 mg/dL (65-115); Iron 21 ug/dL (37-145); Osmolality Calculated 275 mOsm/kg (285-295); Percent Saturation 8.1 % (20-50); Potassium 3.5 mmol/L (3.5-5.1); Sodium 134 mmol/L (136-145); Total Bilirubin 0.2 mg/dL (0.15-1.2); Total Iron Binding Capacity 259 mcg/dl; Total Protein 7.2 g/dL (6.6-8.7); Unsaturated Iron Binding 238 ug/dL (112-347)
--- NOTE | 2020-03-26 17:20 | ONC FU_ITS ---
Dr. Valero Patient Follow-Up Note Patient: Emma Porras Unit #: [id number]: 1955 Dicatated By: Harshal Valero M.D.Date of Visit:Mar 22, 2020 Onc Med Follow-up/Prog Note Chief Complaint: Anemia. History of Present Illness: This is a 64 year-old woman with persistent anemia. Her laboratory studies from November 2012 showed a hypochromic/microcytic anemia with transferrin saturation 3% and ferritin low at 2.5 ng/mL. By the time I had seen her in January the hemoglobin was down to 7.4 g. She was given parenteral iron replacement with Venofer, which she completed in February 2013. As of July 2013 her hemoglobin was up to 12.8 g. She underwent upper and lower GI endoscopy in November. The upper endoscopy did show evidence of gastritis, which was the presumed cause for the iron deficiency. There were no significant abnormalities noted on the colonoscopy. She did complain of generalized abdominal pain following the procedure, which continued to worsen gradually after she returned home. On evaluation in the emergency room she was found to have a subcapsular splenic hematoma. Her hemoglobin dropped to 6.0 g, at which point she was admitted to the hospital for transfusion. The hematoma stabilized, and she was able to be managed conservatively. Her clinical course, though, was complicated by transfusion associated lung injury, but she did recover uneventfully. During subsequent followup she had remained moderately anemic, and she had persistently elevated sedimentation rate and CRP level. She was treated again with Venofer in June 2014 after her hemoglobin had dropped back down to 8.4 g. With that course of treatment she received a total of 1400 mg, but a followup CBC in September 2014 showed that she was still moderately anemic with a hemoglobin of 9.8 g. At that point she was started back on Venofer infusions, and she then completed an additional 1200 mg total dosage. On a followup visit in November her hemoglobin was adequate at 11.6 g, but the transferrin saturation was back down to 5%, and at that time I did restart Venofer. As of 01/01/2015 she had completed another course of treatment to a total dose of 1000 mg. Following her course of parenteral iron replacement in December 2014 she underwent further GI evaluation in [place]. She was found on capsule endoscopy to have an actively bleeding AVM in the small intestine. On 04/07/2015 she underwent double-balloon enteroscopy with APC by Dr. Royer West. At that time she was confirmed to have multiple AVMs throughout the small intestine. According to the procedure note, APC was applied to a total of 8 AVMs. She tolerated the procedure well. During subsequent follow-up she had continued to require parenteral iron replacement on a fairly regular basis. This included 2 infusions of Injectafer during the remainder of 2014, a total of 4 infusions of Injectafer during 2015, 6 infusions during 2016, and 4 infusions during 2017. She received a total of 8 infusions during 2018. At her follow-up visit on 07/03/2019 her hemoglobin had dropped to 7.7 g. The red cell indices were macrocytic with MCV 104 and MCH 31. Her transferrin saturation was normal at 34% and a ferritin was normal at 358 ng/mL. She was transfused 2 units PRBC. Her stool was retested and was negative for occult blood by IFOB. As of 08/27/2019 the hemoglobin was back down to 8.8 g. Her serum iron studies at that point showed low transferrin saturation at 11.5%, and with that finding, I did opt to give her another infusion of Injectafer. On 10/02/2019 she underwent bone marrow aspiration/biopsy. The cellularity was normal, ranging from 30 to 60%. Megakaryocytes were noted to be mildly increased. There was no evidence of an infiltrative process. There were no overt dysplastic changes. Iron stores were adequate with no ring sideroblasts identified. During follow-up she remained significantly anemic. She required PRBC transfusions again in November and in December. On 03/09/2020 her hemoglobin had dropped back down to 7.3 g, and she was given another 2 units PRBC. During that time she also was scheduled for further GI evaluation with Dr. West in [place]. Her camera endoscopy reportedly showed multiple AVMs. Her other medical illnesses include fibromyalgia, degenerative arthritis, GERD, and anxiety/depression. Surgeries include hysterectomy/bilateral salpingo-oophorectomy in 1997, laparascopic cholecystectomy in 2007, and cystoscopy/anterior repair in January,. She underwent lumbar laminectomy in 2003 and cervical laminectomy/fusion in 2004. She also has had surgery on both elbows. She has a history of smoking up to 2 packs of cigarettes daily for 35 years. She has been trying to quit. Family history is significant for father having of pancreatic cancer at age 62 and mother having of lung cancer at age 76. A brother has hypertension and diabetes and a sister has heart disease. INTERIM HISTORY: She is seen for a follow-up visit. She complains of his feeling tired, but she is working. ECOG score is 1. Her appetite has not been good, but her weight is stable. She has no fever or night sweats. She says her breathing is pretty good. She does not complain of shortness of breath or cough, and she has not been having chest pain. She does not complain of nausea and she is not having acid reflux symptoms. Her bowels are loose, and she says they are real dark. She occasionally has pain in the left lower quadrant area. She has urinary frequency and urgency, and she is on medication for it. She has pain in her neck/arms and in her lower back. She says it has been a little better lately, and it is managed adequately with medication. She has occasional headache. She is sometimes dizzy/lightheaded when her blood count is low. She has no focal neurologic symptoms. Medications: ALPRAZolam 1 Tablet (of 0.5 mg) Oral t.i.d. PRN, Ditropan XL 1 (10 mg) Tablet SR 24 HR Oral daily PRN, Estradiol 1 (1 mg) Tablet Oral daily, FLUoxetine HCl 3 Capsule (of 20 mg) Oral daily, HYDROcodone-Acetaminophen 1 Tablet (of 7.5-325 mg) Oral q 4 hours PRN, Montelukast Sodium 10 mg - Take 1 Tablet Oral daily, Protonix 1 (40 mg) Tablet, enteric coated Oral daily, Topiramate 25 mg - Take 1 Tablet Oral daily, Vitamin D3 2000 Units - Take 1 Tablet Oral daily Allergies: Codeine Phosphate and Penicillin G Benzathine. Review of Systems: Constitutional - She is tired, but she is still working. Appetite is not that good, but her weight is stable. No fever or night sweats. ECOG score is 1, ENMT - She has occasinal sinus drainage. No mouth sores. No sore throat or difficulty swallowing, Hematologic/Lymphatic - She bruises easily, Respiratory - No shortness of breath. No cough. No pleuritic pain or hemoptysis, Cardiovascular - No angina pain. No palpitations, Gastrointestinal - No nausea or vomiting. No heartburn or acid reflux. Her stools are loose, and they are real dark. She occasionally has pain in the left lower quadrant area, Genitourinary (F) - No dysuria or hematuria. She has urinary frequency and urgency. She is on medication for it, Musculoskeletal - She has pain in her neck and arms and in her lower back. Pain has been a little better lately. She is managing it adequately with her medication, Integumentary - No skin complications, Neurologic - She has occasional headache. She sometimes gets dizzy when her blood count is low. No numbness/tingling or other focal neurologic symptoms, Psychiatric - She has anxiety/depression. No insomnia. Vital Signs: Performed on Mar 22, 2020 15:38 Height - 57.00 in Weight - 105.6 lbs (HIGH) BSA - 1.37 sq.m BMI - 22.85 Temperature - 98.7 F Pulse - 89 /min Respiration - 18 /min BP - 121/46 mm(hg) O2 Sat - 99 % Pain - 0 Physical Examination: Constitutional - She does not appear acutely ill, Eyes - Sclerae nonicteric. Conjunctivae clear, ENMT - No lesions noted in the oral cavity, Hematologic/Lymphatic - No cervical, clavicular, or axillary adenopathy, Respiratory - Lungs are clear with diminished air movement bilaterally, Cardiovascular - Heart rhythm is regular. There is a II/ systolic murmur. There is no gallop or rub noted, Abdomen - Soft. Liver and spleen are not enlarged. There is no abdominal mass or ascites noted and there is no inguinal adenopathy, Extremities - No edema. Pedal pulses are palpable bilaterally, Neurologic - No focal neurologic deficits noted. Lab/Imaging: Test performed on Mar 22, 2020 14:25 Ferritin 41 ng/mL Iron 21 mcg/dL Sodium 134 mmol/L Iron Binding Capacity (TIBC) 259 mcg/dl Potassium 3.5 mmol/L % Iron Saturation 8.1 % Chloride 101 mmol/L CO2 23 mmol/L UIBC 238 mcg/dL Anion Gap 13.5 BUN 6 mg/dL Creatinine 0.9 mg/dL Cr Clearance (Est) 49.01 mL/min eGFR 63.4 mL/min Glucose 129 mg/dL Calcium 8.4 mg/dL Protein, Total 7.2 g/dL Albumin 4.0 g/dL Globulin 3.2 g/dL Bilirubin, Total 0.2 mg/dL ALT (SGPT) 17 U/L AST (SGOT) 20 U/L Alkaline Phosphatase 179 IU/L WBC 8.2 10 3/uL RBC 2.86 10 6/uL HGB 8.0 g/dL HCT 26.5 % MCV 92.7 fL MCH 28.0 pg MCHC 30.2 g/dL RDW 15.6 % Platelet Count 560 10 3/cmm MPV 10.6 fL Neutrophils 5.69 10 3/uL Lymphocytes 1.8 10 3/uL Monocytes 0.4 10 3/uL Eosinophils 0.2 10 3/uL Basophils 0.1 10 3/uL Neutrophil % 69.8 % Lymphocyte % 22.4 % Monocyte % 5.0 % Eosinophil % 2.0 % Basophils % 0.6 % NRBC % 0 % Impression: 1. Patient was initially seen in January 2013 for recurrent iron deficiency anemia. She had a good response to parenteral iron replacement with Venofer. Her previous GI evaluation with upper and lower endoscopy had shown evidence of gastritis, which was the presumed cause for the iron deficiency. 2. The colonoscopy procedure was complicated by a subcapsular splenic hematoma. It was able to be managed conservatively, but the hematoma did result in a significant drop in her hemoglobin level, and she did require admission to the hospital for transfusion. She subsequently developed acute transfusion related lung injury, but she did have a good recovery. 3. During subsequent follow-up she has had recurrent episodes of iron deficiency anemia. At least some component has been be due to GI blood loss. I have suspected that some component may be due to inadequate oral iron absorption. 4. In March she did undergo enteroscopy/APC for multiple small intestine AVMs. She tolerated the procedure well. On her follow-up visit in May 2015 she was significantly anemic again, with hemoglobin back down to 8.1 g. Chemistry studies were clearly consistent with iron deficiency. She was then given parenteral iron replacement with Injectafer, which she completed in June 2015. She again had a very good clinical response. 5. She required additional infusions of Injectafer in January 2016 and again in April 2016. Her other medical illnesses include: 6. GERD. 7. Degenerative arthritis/fibromyalgia with chronic pain. 8. Anxiety/depression. 9. She has nicotine dependence (cigarettes). During followup she has continued to have recurrent episodes of iron deficiency. She has been given parenteral parenteral iron replacement with Injectafer on multiple occasions. It is presumed to have been due to GI blood loss, though it has not actually been documented. In June 2019 her hemoglobin had dropped to as low as 7.7 g, at which point she was given a transfusion of 2 units PRBC. Her stool was subsequently retested and was negative for occult blood by IFOB. As of 08/27/2019 her hemoglobin was back down to 8.8 g. Her transferrin saturation was low at 11%. With that finding, she was given an infusion of Injectafer, and the following week there had been further decline in her hemoglobin to 8.2 g. She then underwent bone marrow aspiration/biopsy on 10/02/2019. It showed normal cellularity with no overt dysplastic changes and no evidence of infiltrative process. Iron stores were adequate with no ring sideroblasts identified. Given those findings, I opted to just monitor her and transfuse again as needed. She did require further PRBC transfusions in November and in December, and she was given another 2 units of PRBC on 03/10/2020. During that time, she was seen for further GI evaluation by Dr. West in [place]. She reportedly was found to have multiple AVMs on her camera endoscopy. Plan: As her hemoglobin now is back down to 8.0 g despite the recent transfusion and her serum iron studies and ferritin now are back and iron deficiency range, I will have her return next week for further parenteral iron replacement with Injectafer. She also can be transfused again as necessary. Signed By: Harshal Valero M.D. <<Signature on File>>
[2020-03-30] VITALS (8 sets, daily range): BP systolic 117–149; BP diastolic 53–67; PULSE 64–72; RESP 18; TEMP 36.4–36.8; O2SAT 99–100
[2020-03-30] MEDS: sodium chloride 0.9% 250 ML 999 ML IV (08:20)
[2020-03-30] MEDS: acetaminophen 325 mg Tablet 650 MG PO (08:30)
[2020-03-30] MEDS: ferric carboxy (IVPB) 750 MG in sodium chloride 0.9% (100 ml) 100 ML 460 MG IV (08:30)
[2020-03-30 08:37] LABS: Basophils # 0.1 10^3/uL (0.0-0.1); Eosinophils # 0.1 10^3/uL (0.0-0.8); Eosinophils % 1.9 %; Hematocrit 21.1 % (37.0-47.0); Lymphocytes # 1.1 10^3/uL (0.8-4.8); Mean Corpuscular HGB Conc 28.4 g/dL (30.0-36.0); Mean Corpuscular Hemoglobin 27.5 pg (28.0-34.0); Mean Corpuscular Volume 96.8 fL (81-99); Mean Platelet Volume 10.4 fL (7.4-10.4); Monocytes # 0.4 10^3/uL (0.2-0.9); Monocytes % 5.5 %; Neutrophils # 5.55 10^3/uL (1.8-7.7); Neutrophils % 76.1 %; Nucleated Red Blood Cells % 0 %; Platelet Count 578 10^3/cmm (130-400); Red Blood Count 2.18 10^6/uL (4.1-5.3); Red Cell Distribution Width 16.3 % (12.1-15.1); White Blood Count 7.3 10^3/uL (4.0-10.0)
[2020-03-30] MEDS: diphenhydrAMINE 25 mg Capsule PO (10:23)
[2020-03-30] MEDS: FUROsemide 10 mg/mL SDV 2mL 20 MG IV (15:52)
[2020-04-06] VITALS (10 sets, daily range): BP systolic 107–138; BP diastolic 56–69; PULSE 67–80; RESP 16–17; TEMP 36.1–36.8; O2SAT 97–100
[2020-04-06] MEDS: ferric carboxy (IVPB) 750 MG in sodium chloride 0.9% (100 ml) 100 ML 460 MG IV (09:13)
[2020-04-06 09:25] LABS: Basophils # 0.1 10^3/uL (0.0-0.1); Basophils % 0.8 %; Eosinophils # 0.1 10^3/uL (0.0-0.8); Eosinophils % 1.7 %; Hematocrit 25.8 % (37.0-47.0); Hemoglobin 8.1 g/dL (11.5-15.3); Lymphocytes # 1.2 10^3/uL (0.8-4.8); Lymphocytes % 14.9 %; Mean Corpuscular HGB Conc 31.4 g/dL (30.0-36.0); Mean Corpuscular Hemoglobin 30.2 pg (28.0-34.0); Mean Corpuscular Volume 96.3 fL (81-99); Mean Platelet Volume 10.3 fL (7.4-10.4); Monocytes # 0.4 10^3/uL (0.2-0.9); Monocytes % 4.5 %; Neutrophils # 6.03 10^3/uL (1.8-7.7); Neutrophils % 76.8 %; Nucleated Red Blood Cells % 0 %; Platelet Count 402 10^3/cmm (130-400); Red Blood Count 2.68 10^6/uL (4.1-5.3); Red Cell Distribution Width 16.8 % (12.1-15.1); White Blood Count 7.8 10^3/uL (4.0-10.0)
[2020-04-06] MEDS: acetaminophen 325 mg Tablet 650 MG PO (11:14)
[2020-04-06] MEDS: diphenhydrAMINE 25 mg Capsule PO (11:14)
[2020-04-06] MEDS: sodium chloride 0.9% 250 ML 999 ML IV (12:02)
[2020-04-06] MEDS: FUROsemide 10 mg/mL SDV 2mL 20 MG IV (13:42)
== END 2020-04-12 23:59 | disposition home or self-care (01) ==
LOC: ONCMED 05:40
PROVIDERS: Nurse Practitioner; PCP Nurse Practitioner Family; Visit Provider Internal Medicine Medical Oncology
DX: D50.9 Iron deficiency anemia, unspecified (principal); Q27.33 Arteriovenous malformation of digestive system vessel; K21.9 Gastro-esophageal reflux disease without esophagitis; M19.90 Unspecified osteoarthritis, unspecified site; M79.7 Fibromyalgia; F41.8 Other specified anxiety disorders; F17.210 Nicotine dependence, cigarettes, uncomplicated
CPT/HCPCS: 36415; 36430; 80053; 82728; 83540; 83550; 85025; 86850; 86900; 86920; 96365; 99214; J1439; J1940; J7050; P9016

== ENCOUNTER 2020-05-04 08:19 | Outpatient (RCR) | payer MEDICARE, SELFPAY ==
[2020-04-13 08:48] LABS: Basophils % 0.5 %; Eosinophils # 0.1 10^3/uL (0.0-0.8); Eosinophils % 1.9 %; Hematocrit 31.9 % (37.0-47.0); Hemoglobin 10.1 g/dL (11.5-15.3); Lymphocytes # 1.2 10^3/uL (0.8-4.8); Mean Corpuscular HGB Conc 31.7 g/dL (30.0-36.0); Mean Corpuscular Hemoglobin 30.8 pg (28.0-34.0); Mean Corpuscular Volume 97.3 fL (81-99); Mean Platelet Volume 10.9 fL (7.4-10.4); Monocytes # 0.4 10^3/uL (0.2-0.9); Monocytes % 5.2 %; Neutrophils # 5.57 10^3/uL (1.8-7.7); Neutrophils % 75.7 %; Nucleated Red Blood Cells % 0 %; Platelet Count 409 10^3/cmm (130-400); Red Blood Count 3.28 10^6/uL (4.1-5.3); Red Cell Distribution Width 17.6 % (12.1-15.1); White Blood Count 7.4 10^3/uL (4.0-10.0)
[2020-04-27 09:00] LABS: Basophils # 0.1 10^3/uL (0.0-0.1); Eosinophils # 0.1 10^3/uL (0.0-0.8); Eosinophils % 1.1 %; Hematocrit 33.8 % (37.0-47.0); Hemoglobin 10.2 g/dL (11.5-15.3); Lymphocytes % 15.5 %; Mean Corpuscular HGB Conc 30.2 g/dL (30.0-36.0); Mean Corpuscular Hemoglobin 31.2 pg (28.0-34.0); Mean Corpuscular Volume 103.4 fL (81-99); Mean Platelet Volume 10.3 fL (7.4-10.4); Monocytes # 0.3 10^3/uL (0.2-0.9); Monocytes % 4.9 %; Neutrophils # 4.73 10^3/uL (1.8-7.7); Nucleated Red Blood Cells % 0 %; Platelet Count 508 10^3/cmm (130-400); Red Blood Count 3.27 10^6/uL (4.1-5.3); Red Cell Distribution Width 17.2 % (12.1-15.1); White Blood Count 6.1 10^3/uL (4.0-10.0)
[2020-05-04 08:49] LABS: Basophils % 0.5 %; Eosinophils # 0.1 10^3/uL (0.0-0.8); Eosinophils % 1.5 %; Hematocrit 38.1 % (37.0-47.0); Hemoglobin 11.7 g/dL (11.5-15.3); Lymphocytes % 13.4 %; Mean Corpuscular HGB Conc 30.7 g/dL (30.0-36.0); Mean Corpuscular Hemoglobin 31.4 pg (28.0-34.0); Mean Corpuscular Volume 102.1 fL (81-99); Mean Platelet Volume 10.3 fL (7.4-10.4); Monocytes # 0.2 10^3/uL (0.2-0.9); Monocytes % 2.8 %; Neutrophils # 6.02 10^3/uL (1.8-7.7); Neutrophils % 81.5 %; Nucleated Red Blood Cells % 0 %; Platelet Count 459 10^3/cmm (130-400); Red Blood Count 3.73 10^6/uL (4.1-5.3); Red Cell Distribution Width 15.4 % (12.1-15.1); White Blood Count 7.4 10^3/uL (4.0-10.0)
== END 2020-05-12 23:59 | disposition home or self-care (01) ==
LOC: ONCMED 08:19
PROVIDERS: PCP Nurse Practitioner Family; Visit Provider Internal Medicine Medical Oncology
DX: D64.9 Anemia, unspecified (principal)
CPT/HCPCS: 36415; 85025

== ENCOUNTER 2020-06-11 06:56 | Outpatient (RCR) | payer MEDICARE, SELFPAY ==
[2020-05-18 08:47] LABS: Basophils # 0.1 10^3/uL (0.0-0.1); Basophils % 0.6 %; Eosinophils # 0.1 10^3/uL (0.0-0.8); Eosinophils % 0.9 %; Hematocrit 36.1 % (37.0-47.0); Lymphocytes # 1.1 10^3/uL (0.8-4.8); Lymphocytes % 12.4 %; Mean Corpuscular HGB Conc 30.5 g/dL (30.0-36.0); Mean Corpuscular Hemoglobin 31.3 pg (28.0-34.0); Mean Corpuscular Volume 102.8 fL (81-99); Mean Platelet Volume 10.7 fL (7.4-10.4); Monocytes # 0.4 10^3/uL (0.2-0.9); Monocytes % 4.6 %; Neutrophils # 7.21 10^3/uL (1.8-7.7); Neutrophils % 81.1 %; Nucleated Red Blood Cells % 0 %; Platelet Count 408 10^3/cmm (130-400); Red Blood Count 3.51 10^6/uL (4.1-5.3); Red Cell Distribution Width 14.4 % (12.1-15.1); White Blood Count 8.9 10^3/uL (4.0-10.0)
[2020-05-25 09:08] LABS: Basophils # 0.1 10^3/uL (0.0-0.1); Basophils % 0.6 %; Eosinophils # 0.1 10^3/uL (0.0-0.8); Eosinophils % 1.2 %; Hematocrit 34.1 % (37.0-47.0); Hemoglobin 10.7 g/dL (11.5-15.3); Lymphocytes # 1.3 10^3/uL (0.8-4.8); Lymphocytes % 16.2 %; Mean Corpuscular HGB Conc 31.4 g/dL (30.0-36.0); Mean Corpuscular Hemoglobin 31.3 pg (28.0-34.0); Mean Corpuscular Volume 99.7 fL (81-99); Mean Platelet Volume 10.5 fL (7.4-10.4); Monocytes # 0.4 10^3/uL (0.2-0.9); Monocytes % 4.9 %; Neutrophils # 5.91 10^3/uL (1.8-7.7); Neutrophils % 76.7 %; Nucleated Red Blood Cells % 0 %; Platelet Count 426 10^3/cmm (130-400); Red Blood Count 3.42 10^6/uL (4.1-5.3); White Blood Count 7.7 10^3/uL (4.0-10.0)
[2020-06-11 08:43] LABS: Basophils # 0.1 10^3/uL (0.0-0.1); Basophils % 0.7 %; Eosinophils # 0.1 10^3/uL (0.0-0.8); Eosinophils % 0.7 %; Hematocrit 32.8 % (37.0-47.0); Lymphocytes # 1.4 10^3/uL (0.8-4.8); Lymphocytes % 16.4 %; Mean Corpuscular HGB Conc 30.5 g/dL (30.0-36.0); Mean Corpuscular Hemoglobin 30.7 pg (28.0-34.0); Mean Corpuscular Volume 100.6 fL (81-99); Mean Platelet Volume 10.1 fL (7.4-10.4); Monocytes # 0.3 10^3/uL (0.2-0.9); Monocytes % 4.1 %; Neutrophils % 77.6 %; Nucleated Red Blood Cells % 0 %; Platelet Count 473 10^3/cmm (130-400); Red Blood Count 3.26 10^6/uL (4.1-5.3); Red Cell Distribution Width 14.2 % (12.1-15.1); White Blood Count 8.4 10^3/uL (4.0-10.0)
== END 2020-06-12 23:59 | disposition home or self-care (01) ==
LOC: ONCMED 06:56
PROVIDERS: Internal Medicine Medical Oncology; PCP Nurse Practitioner Family; Visit Provider Nurse Practitioner
DX: D64.9 Anemia, unspecified (principal)
CPT/HCPCS: 36415; 85025

== ENCOUNTER 2020-07-12 07:45 | Outpatient (RCR) | payer MEDICARE, SELFPAY ==
[2020-06-18 08:46] LABS: Basophils # 0.1 10^3/uL (0.0-0.1); Basophils % 0.6 %; Eosinophils # 0.1 10^3/uL (0.0-0.8); Eosinophils % 1.1 %; Hemoglobin 10.4 g/dL (11.5-15.3); Lymphocytes # 1.4 10^3/uL (0.8-4.8); Mean Corpuscular HGB Conc 29.7 g/dL (30.0-36.0); Mean Corpuscular Hemoglobin 30.2 pg (28.0-34.0); Mean Corpuscular Volume 101.7 fL (81-99); Mean Platelet Volume 10.2 fL (7.4-10.4); Monocytes # 0.4 10^3/uL (0.2-0.9); Monocytes % 5.3 %; Neutrophils # 5.87 10^3/uL (1.8-7.7); Neutrophils % 74.5 %; Nucleated Red Blood Cells % 0 %; Platelet Count 464 10^3/cmm (130-400); Red Blood Count 3.44 10^6/uL (4.1-5.3); Red Cell Distribution Width 13.9 % (12.1-15.1); White Blood Count 7.9 10^3/uL (4.0-10.0)
[2020-06-25 08:42] LABS: Basophils % 0.4 %; Eosinophils # 0.1 10^3/uL (0.0-0.8); Eosinophils % 0.7 %; Hematocrit 32.3 % (37.0-47.0); Lymphocytes % 10.7 %; Mean Platelet Volume 10.2 fL (7.4-10.4); Monocytes # 0.3 10^3/uL (0.2-0.9); Monocytes % 3.4 %; Neutrophils # 7.74 10^3/uL (1.8-7.7); Neutrophils % 84.5 %; Nucleated Red Blood Cells % 0 %; Platelet Count 509 10^3/cmm (130-400); Red Blood Count 3.33 10^6/uL (4.1-5.3); Red Cell Distribution Width 14.1 % (12.1-15.1); White Blood Count 9.2 10^3/uL (4.0-10.0)
[2020-07-07 08:49] LABS: Basophils # 0.1 10^3/uL (0.0-0.1); Basophils % 0.8 %; Eosinophils # 0.1 10^3/uL (0.0-0.8); Eosinophils % 1.6 %; Hematocrit 26.2 % (37.0-47.0); Hemoglobin 7.9 g/dL (11.5-15.3); Lymphocytes # 1.4 10^3/uL (0.8-4.8); Lymphocytes % 18.3 %; Mean Corpuscular HGB Conc 30.2 g/dL (30.0-36.0); Mean Corpuscular Hemoglobin 29.9 pg (28.0-34.0); Mean Corpuscular Volume 99.2 fL (81-99); Mean Platelet Volume 11.2 fL (7.4-10.4); Monocytes # 0.3 10^3/uL (0.2-0.9); Monocytes % 3.4 %; Neutrophils # 5.79 10^3/uL (1.8-7.7); Neutrophils % 75.2 %; Nucleated Red Blood Cells % 0 %; Platelet Count 417 10^3/cmm (130-400); Red Blood Count 2.64 10^6/uL (4.1-5.3); Red Cell Distribution Width 14.7 % (12.1-15.1); White Blood Count 7.7 10^3/uL (4.0-10.0)
[2020-07-07 09:05] LABS: Alanine Aminotransferase 19 U/L (0-33); Albumin Level 4.1 g/dL (3.5-5.2); Alkaline Phosphatase 172 IU/L (35-105); Anion Gap 14.3 (5-19); Aspartate Amino Transferase 26 U/L (0-32); Blood Urea Nitrogen 8 mg/dL (8-23); Calcium 8.8 mg/dL (8.5-10.5); Carbon Dioxide 25 mmol/L (22-29); Chloride 103 mmol/L (98-107); Ferritin 78 ng/mL (15-150); Globulin 2.7 g/dL (1.3-4.6); Glomerular Filtration Rate 63.2 mL/min (90-130); Glucose 87 mg/dL (65-115); Iron 32 ug/dL (37-145); Osmolality Calculated 284 mOsm/kg (285-295); Percent Saturation 11.8 % (20-50); Potassium 4.3 mmol/L (3.5-5.1); Sodium 138 mmol/L (136-145); Total Bilirubin 0.2 mg/dL (0.15-1.2); Total Iron Binding Capacity 269 mcg/dl; Total Protein 6.8 g/dL (6.6-8.7); Unsaturated Iron Binding 237 ug/dL (112-347)
[2020-07-07 10:16] LABS: Slide Review Slide Review Perform
[2020-07-12 08:34] LABS: Basophils # 0.1 10^3/uL (0.0-0.1); Basophils % 0.4 %; Eosinophils # 0.1 10^3/uL (0.0-0.8); Hemoglobin 8.5 g/dL (11.5-15.3); Lymphocytes # 1.6 10^3/uL (0.8-4.8); Lymphocytes % 14.2 %; Mean Corpuscular HGB Conc 30.4 g/dL (30.0-36.0); Mean Corpuscular Hemoglobin 29.5 pg (28.0-34.0); Mean Corpuscular Volume 97.2 fL (81-99); Mean Platelet Volume 10.1 fL (7.4-10.4); Monocytes # 0.5 10^3/uL (0.2-0.9); Monocytes % 4.3 %; Neutrophils # 9.01 10^3/uL (1.8-7.7); Neutrophils % 79.6 %; Nucleated Red Blood Cells % 0 %; Platelet Count 564 10^3/cmm (130-400); Red Blood Count 2.88 10^6/uL (4.1-5.3); White Blood Count 11.3 10^3/uL (4.0-10.0)
== END 2020-07-12 23:59 | disposition home or self-care (01) ==
LOC: ONCMED 07:45
PROVIDERS: Internal Medicine Medical Oncology; PCP Nurse Practitioner Family; Visit Provider Nurse Practitioner
DX: D50.9 Iron deficiency anemia, unspecified (principal)
CPT/HCPCS: 36415; 80053; 82728; 83540; 83550; 85025

== ENCOUNTER 2020-07-21 06:56 | Outpatient (RCR) | payer MEDICARE, SELFPAY ==
[2020-07-21 08:43] LABS: Basophils # 0.1 10^3/uL (0.0-0.1); Basophils % 0.8 %; Eosinophils # 0.1 10^3/uL (0.0-0.8); Eosinophils % 1.1 %; Hematocrit 30.8 % (37.0-47.0); Hemoglobin 9.2 g/dL (11.5-15.3); Lymphocytes # 1.5 10^3/uL (0.8-4.8); Lymphocytes % 23.4 %; Mean Corpuscular HGB Conc 29.9 g/dL (30.0-36.0); Mean Corpuscular Hemoglobin 27.8 pg (28.0-34.0); Mean Corpuscular Volume 93.1 fL (81-99); Monocytes # 0.3 10^3/uL (0.2-0.9); Monocytes % 3.9 %; Neutrophils # 4.52 10^3/uL (1.8-7.7); Neutrophils % 70.5 %; Nucleated Red Blood Cells % 0 %; Platelet Count 642 10^3/cmm (130-400); Red Blood Count 3.31 10^6/uL (4.1-5.3); Red Cell Distribution Width 14.8 % (12.1-15.1); White Blood Count 6.4 10^3/uL (4.0-10.0)
== END 2020-08-12 23:59 | disposition home or self-care (01) ==
LOC: ONCMED 06:56
PROVIDERS: PCP Nurse Practitioner Family; Visit Provider Nurse Practitioner
DX: D64.9 Anemia, unspecified (principal)
CPT/HCPCS: 36415; 85025

== ENCOUNTER 2020-09-09 05:35 | Outpatient (RCR) | payer MEDICARE, SELFPAY ==
[2020-08-24 14:05] LABS: Basophils # 0.1 10^3/uL (0.0-0.1); Basophils % 0.7 %; Eosinophils # 0.1 10^3/uL (0.0-0.8); Lymphocytes # 1.8 10^3/uL (0.8-4.8); Lymphocytes % 25.1 %; Mean Corpuscular HGB Conc 27.8 g/dL (30.0-36.0); Mean Corpuscular Hemoglobin 23.8 pg (28.0-34.0); Mean Corpuscular Volume 85.8 fL (81-99); Mean Platelet Volume 10.3 fL (7.4-10.4); Monocytes # 0.3 10^3/uL (0.2-0.9); Monocytes % 4.5 %; Neutrophils # 4.78 10^3/uL (1.8-7.7); Neutrophils % 67.4 %; Nucleated Red Blood Cells % 0 %; Platelet Count 601 10^3/cmm (130-400); Red Blood Count 2.39 10^6/uL (4.1-5.3); Red Cell Distribution Width 16.7 % (12.1-15.1); White Blood Count 7.1 10^3/uL (4.0-10.0)
[2020-08-24 14:34] LABS: Hematocrit 20.5 % (37.0-47.0); Hemoglobin 5.7 g/dL (11.5-15.3)
[2020-08-25] VITALS (8 sets, daily range): BP systolic 95–146; BP diastolic 54–74; PULSE 74–86; RESP 18; TEMP 36.7–36.8; O2SAT 98–100
[2020-08-25] MEDS: sodium chloride 0.9% 250 ML 999 ML IV (12:00)
[2020-08-25] MEDS: diphenhydrAMINE 25 mg Capsule PO (12:00)
[2020-08-25] MEDS: acetaminophen 325 mg Tablet 650 MG PO (12:00)
[2020-08-25] MEDS: FUROsemide 10 mg/mL SDV 2mL 20 MG IV (14:00)
[2020-08-26 08:54] LABS: Basophils # 0.1 10^3/uL (0.0-0.1); Basophils % 0.5 %; Eosinophils # 0.2 10^3/uL (0.0-0.8); Eosinophils % 1.3 %; Hematocrit 34.4 % (37.0-47.0); Hemoglobin 10.6 g/dL (11.5-15.3); Lymphocytes # 1.5 10^3/uL (0.8-4.8); Lymphocytes % 11.7 %; Mean Corpuscular HGB Conc 30.8 g/dL (30.0-36.0); Mean Corpuscular Hemoglobin 25.9 pg (28.0-34.0); Mean Corpuscular Volume 83.9 fL (81-99); Mean Platelet Volume 10.1 fL (7.4-10.4); Monocytes # 0.4 10^3/uL (0.2-0.9); Monocytes % 2.9 %; Neutrophils # 10.86 10^3/uL (1.8-7.7); Neutrophils % 83.2 %; Nucleated Red Blood Cells % 0 %; Platelet Count 497 10^3/cmm (130-400); Red Cell Distribution Width 15.6 % (12.1-15.1)
[2020-08-26 09:15] LABS: Alanine Aminotransferase 13 U/L (0-33); Alkaline Phosphatase 181 IU/L (35-105); Aspartate Amino Transferase 19 U/L (0-32); Blood Urea Nitrogen 9 mg/dL (8-23); Calcium 8.9 mg/dL (8.5-10.5); Carbon Dioxide 25 mmol/L (22-29); Chloride 98 mmol/L (98-107); Globulin 3.4 g/dL (1.3-4.6); Glucose 100 mg/dL (65-115); Osmolality Calculated 273 mOsm/kg (285-295); Sodium 132 mmol/L (136-145); Total Bilirubin 0.2 mg/dL (0.15-1.2); Total Protein 7.4 g/dL (6.6-8.7)
--- NOTE | 2020-08-28 17:49 | ONC FU_ITS ---
Dr. Valero Patient Follow-Up Note Patient: Emma Porras Unit #: [id number]: 1955 Dicatated By: Harshal Valero M.D.Date of Visit:Aug 25, 2020 Onc Med Follow-up/Prog Note Chief Complaint: Anemia. History of Present Illness: This is a 65 year-old woman with persistent/recurrent anemia. Her laboratory studies from November 2012 showed a hypochromic/microcytic anemia with transferrin saturation 3% and ferritin low at 2.5 ng/mL. By the time I had seen her in January the hemoglobin was down to 7.4 g. She was given parenteral iron replacement with Venofer, which she completed in February 2013. As of July 2013 her hemoglobin was up to 12.8 g. She underwent upper and lower GI endoscopy in November. The upper endoscopy did show evidence of gastritis, which was the presumed cause for the iron deficiency. There were no significant abnormalities noted on the colonoscopy. She did complain of generalized abdominal pain following the procedure, which continued to worsen gradually after she returned home. On evaluation in the emergency room she was found to have a subcapsular splenic hematoma. Her hemoglobin dropped to 6.0 g, at which point she was admitted to the hospital for transfusion. The hematoma stabilized, and she was able to be managed conservatively. Her clinical course, though, was complicated by transfusion associated lung injury, but she did recover uneventfully. During subsequent followup she had remained moderately anemic, and she had persistently elevated sedimentation rate and CRP level. She was treated again with Venofer in June 2014 after her hemoglobin had dropped back down to 8.4 g. With that course of treatment she received a total of 1400 mg, but a followup CBC in September 2014 showed that she was still moderately anemic with a hemoglobin of 9.8 g. At that point she was started back on Venofer infusions, and she then completed an additional 1200 mg total dosage. On a followup visit in November her hemoglobin was adequate at 11.6 g, but the transferrin saturation was back down to 5%, and at that time I did restart Venofer. As of 01/01/2015 she had completed another course of treatment to a total dose of 1000 mg. Following her course of parenteral iron replacement in December 2014 she underwent further GI evaluation in [place]. She was found on capsule endoscopy to have an actively bleeding AVM in the small intestine. On 04/07/2015 she underwent double-balloon enteroscopy with APC by Dr. Royer West. At that time she was confirmed to have multiple AVMs throughout the small intestine. According to the procedure note, APC was applied to a total of 8 AVMs. She tolerated the procedure well. During subsequent follow-up she had continued to require parenteral iron replacement on a fairly regular basis. This included 2 infusions of Injectafer during the remainder of 2014, a total of 4 infusions of Injectafer during 2015, 6 infusions during 2016, and 4 infusions during 2017. She received a total of 8 infusions during 2018. At her follow-up visit on 07/03/2019 her hemoglobin had dropped to 7.7 g. The red cell indices were macrocytic with MCV 104 and MCH 31. Her transferrin saturation was normal at 34% and a ferritin was normal at 358 ng/mL. She was transfused 2 units PRBC. Her stool was retested and was negative for occult blood by IFOB. As of 08/27/2019 the hemoglobin was back down to 8.8 g. Her serum iron studies at that point showed low transferrin saturation at 11.5%, and with that finding, I did opt to give her another infusion of Injectafer. On 10/02/2019 she underwent bone marrow aspiration/biopsy. The cellularity was normal, ranging from 30 to 60%. Megakaryocytes were noted to be mildly increased. There was no evidence of an infiltrative process. There were no overt dysplastic changes. Iron stores were adequate with no ring sideroblasts identified. During follow-up she remained significantly anemic. She required PRBC transfusions again in November and in December. On 03/09/2020 her hemoglobin had dropped back down to 7.3 g, and she was given another 2 units PRBC. During that time she also was scheduled for further GI evaluation with Dr. West in [place]. Her camera endoscopy reportedly showed multiple AVMs. Her other medical illnesses include fibromyalgia, degenerative arthritis, GERD, and anxiety/depression. Surgeries include hysterectomy/bilateral salpingo-oophorectomy in 1997, laparascopic cholecystectomy in 2007, and cystoscopy/anterior repair in January,. She underwent lumbar laminectomy in 2003 and cervical laminectomy/fusion in 2004. She also has had surgery on both elbows. She has a history of smoking up to 2 packs of cigarettes daily for 35 years. She has been trying to quit. Family history is significant for father having of pancreatic cancer at age 62 and mother having of lung cancer at age 76. A brother has hypertension and diabetes and a sister has heart disease. INTERIM HISTORY: She is seen for a follow-up visit. She has been feeling extremely weak and short of breath. She has very limited activity. ECOG score is 2. Appetite has not been good. She has no fever or night sweats. She is having shortness of breath and some cough. She does not complain of chest pain. She has no nausea, that she has been having lower abdominal pain and her stools have been dark the last several days. She has frequent urination. She has chronic pain in her neck and back and she also has pain in both legs. She recently has been having headache. She has numbness in her fingertips. Medications: ALPRAZolam 1 Tablet (of 0.5 mg) Oral t.i.d. PRN, Ditropan XL 1 (10 mg) Tablet SR 24 HR Oral daily PRN, Estradiol 1 (1 mg) Tablet Oral daily, FLUoxetine HCl 3 Capsule (of 20 mg) Oral daily, HYDROcodone-Acetaminophen 1 Tablet (of 7.5-325 mg) Oral q 4 hours PRN, Montelukast Sodium 10 mg - Take 1 Tablet Oral daily, Protonix 1 (40 mg) Tablet, enteric coated Oral daily, Topiramate 25 mg - Take 1 Tablet Oral daily, Vitamin D3 2000 Units - Take 1 Tablet Oral daily Allergies: Codeine Phosphate and Penicillin G Benzathine. Vital Signs: Performed on Aug 25, 2020 13:40 Height - 57.00 in Temperature - 98.2 F (LOW) Pulse - 74 /min Respiration - 17 /min BP - 95/45 mm(hg) O2 Sat - 98 % Pain - 0 Physical Examination: Constitutional - She appears generally weak and pale, Eyes - Sclerae nonicteric. Conjunctivae clear, ENMT - No lesions noted in the oral cavity, Hematologic/Lymphatic - No cervical, clavicular, or axillary adenopathy, Respiratory - Lungs are clear with diminished air movement bilaterally, Cardiovascular - Heart rhythm is regular. There is a II/ systolic murmur. There is no gallop or rub noted, Abdomen - Mildly distended. There is tenderness in the left lower quadrant. Liver and spleen are not enlarged. There is no abdominal mass or ascites noted and there is no inguinal adenopathy, Extremities - No edema, Neurologic - No focal neurologic deficits noted. Lab/Imaging: CBC shows hemoglobin 5.7 g with hematocrit 20.5%. The red cell indices are in the low normal range. White blood cell count is 7100. Platelet count is 601,000. Historic Problem List: 1. Recurrent iron deficiency anemia since 2012. Her previous GI evaluation with upper and lower endoscopy had shown evidence of gastritis, which was the presumed cause for the iron deficiency. 2. Her colonoscopy procedure in 2012 was complicated by a subcapsular splenic hematoma. It was able to be managed conservatively, but the hematoma did result in a significant drop in her hemoglobin level, and she did require admission to the hospital for transfusion. She subsequently developed acute transfusion related lung injury, but she did have a good recovery. 3. During subsequent follow-up she has had recurrent episodes of iron deficiency anemia, presumed to be due to GI blood loss. She has required transfusion and parenteral iron replacement on multiple occasions. 4. In March 2020 she underwent enteroscopy/APC for multiple small intestine AVMs. 5. GERD. 6. Degenerative arthritis/fibromyalgia with chronic pain. 7. Anxiety/depression. 8. She has nicotine dependence (cigarettes). Problems Addressed with this Encounter and Plan: 1. Recurrent iron deficiency anemia since 2012. Her previous GI evaluation with upper and lower endoscopy had shown evidence of gastritis, which was the presumed cause for the iron deficiency. During subsequent follow-up she has had recurrent episodes of iron deficiency anemia, presumed to be due to GI blood loss. She has required transfusion and parenteral iron replacement on multiple occasions, and in March 2020 she underwent enteroscopy/APC for multiple small intestine AVMs. She presents now with of drug drop in her hemoglobin to 5.7 g. She is obviously symptomatic with it. She is having black stools again, and she is almost certainly having active GI blood loss. She will be transfused 2 units PRBC today. She will return tomorrow for a CBC and she will have further transfusion as needed. She is to bring in a stool sample to test for IFOB. She will have further evaluation as indicated. In addition, I will be rechecking her serum iron studies to determine if she is also iron deficient and in need of additional parenteral iron replacement. 2. She has degenerative arthritis/fibromyalgia with chronic pain. It is managed adequately with hydrocodone/APAP, and it will be continued at the same dosage. Signed By: Harshal Valero M.D. <<Signature on File>>
[2020-08-30 09:14] LABS: Basophils # 0.1 10^3/uL (0.0-0.1); Basophils % 0.8 %; Eosinophils # 0.2 10^3/uL (0.0-0.8); Eosinophils % 1.8 %; Hematocrit 38.5 % (37.0-47.0); Hemoglobin 11.5 g/dL (11.5-15.3); Lymphocytes # 1.5 10^3/uL (0.8-4.8); Lymphocytes % 16.6 %; Mean Corpuscular HGB Conc 29.9 g/dL (30.0-36.0); Mean Corpuscular Hemoglobin 25.6 pg (28.0-34.0); Mean Corpuscular Volume 85.6 fL (81-99); Monocytes # 0.4 10^3/uL (0.2-0.9); Monocytes % 4.5 %; Neutrophils # 6.89 10^3/uL (1.8-7.7); Neutrophils % 75.9 %; Nucleated Red Blood Cells % 0 %; Platelet Count 538 10^3/cmm (130-400); Red Cell Distribution Width 15.9 % (12.1-15.1); White Blood Count 9.1 10^3/uL (4.0-10.0)
[2020-08-30 10:14] LABS: Iron 30 ug/dL (37-145); Percent Saturation 8.7 % (20-50); Total Iron Binding Capacity 342 mcg/dl; Unsaturated Iron Binding 312 ug/dL (112-347)
[2020-08-30] MEDS: ferric carboxy (IVPB) 750 MG in sodium chloride 0.9% (100 ml) 100 ML 345 MG IV (13:16)
[2020-09-06] MEDS: ferric carboxy (IVPB) 750 MG in sodium chloride 0.9% (100 ml) 100 ML 345 MG IV (13:10)
[2020-09-06 13:24] LABS: Basophils # 0.1 10^3/uL (0.0-0.1); Eosinophils # 0.2 10^3/uL (0.0-0.8); Hemoglobin 8.9 g/dL (11.5-15.3); Lymphocytes # 1.7 10^3/uL (0.8-4.8); Lymphocytes % 22.7 %; Mean Corpuscular HGB Conc 29.7 g/dL (30.0-36.0); Mean Corpuscular Hemoglobin 26.3 pg (28.0-34.0); Mean Corpuscular Volume 88.8 fL (81-99); Mean Platelet Volume 10.5 fL (7.4-10.4); Monocytes # 0.3 10^3/uL (0.2-0.9); Monocytes % 4.6 %; Neutrophils # 5.03 10^3/uL (1.8-7.7); Neutrophils % 68.7 %; Nucleated Red Blood Cells % 0 %; Platelet Count 395 10^3/cmm (130-400); Red Blood Count 3.38 10^6/uL (4.1-5.3); Red Cell Distribution Width 17.4 % (12.1-15.1); White Blood Count 7.3 10^3/uL (4.0-10.0)
[2020-09-09 08:45] LABS: Basophils # 0.1 10^3/uL (0.0-0.1); Basophils % 0.5 %; Eosinophils # 0.1 10^3/uL (0.0-0.8); Eosinophils % 1.2 %; Hematocrit 31.3 % (37.0-47.0); Hemoglobin 9.4 g/dL (11.5-15.3); Lymphocytes # 1.6 10^3/uL (0.8-4.8); Lymphocytes % 14.2 %; Mean Corpuscular Hemoglobin 26.9 pg (28.0-34.0); Mean Corpuscular Volume 89.4 fL (81-99); Mean Platelet Volume 11.1 fL (7.4-10.4); Monocytes # 0.5 10^3/uL (0.2-0.9); Monocytes % 4.3 %; Neutrophils # 8.57 10^3/uL (1.8-7.7); Neutrophils % 78.2 %; Nucleated Red Blood Cells % 0 %; Platelet Count 500 10^3/cmm (130-400); Red Cell Distribution Width 18.9 % (12.1-15.1); White Blood Count 10.9 10^3/uL (4.0-10.0)
== END 2020-09-12 23:59 | disposition home or self-care (01) ==
LOC: ONCMED 05:35
PROVIDERS: Internal Medicine Medical Oncology; PCP Nurse Practitioner Family; Visit Provider Nurse Practitioner
DX: D50.9 Iron deficiency anemia, unspecified (principal); R19.5 Other fecal abnormalities; K29.70 Gastritis, unspecified, without bleeding; K21.9 Gastro-esophageal reflux disease without esophagitis; F41.8 Other specified anxiety disorders; F17.210 Nicotine dependence, cigarettes, uncomplicated; Q27.33 Arteriovenous malformation of digestive system vessel; M19.90 Unspecified osteoarthritis, unspecified site; M79.7 Fibromyalgia; G89.29 Other chronic pain; Z79.891 Long term (current) use of opiate analgesic
CPT/HCPCS: 36415; 36430; 80053; 82274; 83540; 83550; 85025; 86850; 86900; 86920; 96365; 99214; J1439; J1940; J7050; P9016

== ENCOUNTER 2020-10-05 05:26 | Outpatient (RCR) | payer MEDICARE, SELFPAY ==
[2020-09-13 08:37] LABS: Basophils # 0.1 10^3/uL (0.0-0.1); Basophils % 0.7 %; Eosinophils # 0.2 10^3/uL (0.0-0.8); Eosinophils % 1.6 %; Hematocrit 29.9 % (37.0-47.0); Hemoglobin 8.9 g/dL (11.5-15.3); Lymphocytes # 1.6 10^3/uL (0.8-4.8); Lymphocytes % 13.2 %; Mean Corpuscular HGB Conc 29.8 g/dL (30.0-36.0); Mean Corpuscular Hemoglobin 28.3 pg (28.0-34.0); Mean Corpuscular Volume 95.2 fL (81-99); Mean Platelet Volume 10.5 fL (7.4-10.4); Monocytes # 0.5 10^3/uL (0.2-0.9); Nucleated Red Blood Cells % 0.3 %; Platelet Count 514 10^3/cmm (130-400); Red Blood Count 3.14 10^6/uL (4.1-5.3); Red Cell Distribution Width 22.2 % (12.1-15.1); White Blood Count 11.8 10^3/uL (4.0-10.0)
[2020-09-20 09:22] LABS: Basophils # 0.1 10^3/uL (0.0-0.1); Basophils % 0.6 %; Eosinophils # 0.1 10^3/uL (0.0-0.8); Eosinophils % 1.1 %; Hematocrit 32.3 % (37.0-47.0); Hemoglobin 9.9 g/dL (11.5-15.3); Lymphocytes # 1.6 10^3/uL (0.8-4.8); Lymphocytes % 17.3 %; Mean Corpuscular HGB Conc 30.7 g/dL (30.0-36.0); Mean Corpuscular Volume 97.9 fL (81-99); Mean Platelet Volume 10.5 fL (7.4-10.4); Monocytes # 0.3 10^3/uL (0.2-0.9); Monocytes % 3.5 %; Neutrophils # 6.93 10^3/uL (1.8-7.7); Neutrophils % 76.8 %; Nucleated Red Blood Cells % 0 %; Platelet Count 468 10^3/cmm (130-400)
[2020-10-05 08:43] LABS: Basophils # 0.1 10^3/uL (0.0-0.1); Basophils % 0.6 %; Eosinophils # 0.2 10^3/uL (0.0-0.8); Eosinophils % 1.7 %; Hematocrit 30.7 % (37.0-47.0); Hemoglobin 9.5 g/dL (11.5-15.3); Lymphocytes # 1.5 10^3/uL (0.8-4.8); Lymphocytes % 16.7 %; Mean Corpuscular HGB Conc 30.9 g/dL (30.0-36.0); Mean Corpuscular Hemoglobin 31.4 pg (28.0-34.0); Mean Corpuscular Volume 101.3 fL (81-99); Mean Platelet Volume 10.4 fL (7.4-10.4); Monocytes # 0.5 10^3/uL (0.2-0.9); Monocytes % 5.8 %; Neutrophils # 6.53 10^3/uL (1.8-7.7); Neutrophils % 74.7 %; Nucleated Red Blood Cells % 0 %; Platelet Count 447 10^3/cmm (130-400); Red Blood Count 3.03 10^6/uL (4.1-5.3); Red Cell Distribution Width 19.5 % (12.1-15.1); White Blood Count 8.7 10^3/uL (4.0-10.0)
== END 2020-10-10 23:59 | disposition home or self-care (01) ==
LOC: ONCMED 05:26
PROVIDERS: Nurse Practitioner; PCP Nurse Practitioner Family; Visit Provider Internal Medicine Medical Oncology
DX: D50.9 Iron deficiency anemia, unspecified (principal)
CPT/HCPCS: 36415; 85025

== ENCOUNTER 2020-11-08 05:20 | Outpatient (RCR) | payer MEDICARE, SELFPAY ==
[2020-10-13 11:41] LABS: Basophils % 0.5 %; Eosinophils # 0.2 10^3/uL (0.0-0.8); Hematocrit 31.5 % (37.0-47.0); Hemoglobin 9.7 g/dL (11.5-15.3); Lymphocytes # 1.6 10^3/uL (0.8-4.8); Mean Corpuscular HGB Conc 30.8 g/dL (30.0-36.0); Mean Corpuscular Hemoglobin 31.5 pg (28.0-34.0); Mean Corpuscular Volume 102.3 fL (81-99); Mean Platelet Volume 10.6 fL (7.4-10.4); Monocytes # 0.3 10^3/uL (0.2-0.9); Monocytes % 3.6 %; Neutrophils # 5.41 10^3/uL (1.8-7.7); Neutrophils % 72.4 %; Nucleated Red Blood Cells % 0 %; Platelet Count 440 10^3/cmm (130-400); Red Blood Count 3.08 10^6/uL (4.1-5.3); Red Cell Distribution Width 17.6 % (12.1-15.1); White Blood Count 7.5 10^3/uL (4.0-10.0)
--- NOTE | 2020-10-13 20:25 | ONC FU_ITS ---
Dr. Valero Patient Follow-Up Note Patient: Emma Porras Unit #: [id number]: 1955 Dicatated By: Harshal Valero M.D.Date of Visit:Oct 13, 2020 Onc Med Follow-up/Prog Note Chief Complaint: Anemia. History of Present Illness: This is a 65 year-old woman with persistent/recurrent anemia. Her laboratory studies from November 2012 showed a hypochromic/microcytic anemia with transferrin saturation 3% and ferritin low at 2.5 ng/mL. By the time I had seen her in January the hemoglobin was down to 7.4 g. She was given parenteral iron replacement with Venofer, which she completed in February 2013. As of July 2013 her hemoglobin was up to 12.8 g. She underwent upper and lower GI endoscopy in November. The upper endoscopy did show evidence of gastritis, which was the presumed cause for the iron deficiency. There were no significant abnormalities noted on the colonoscopy. She did complain of generalized abdominal pain following the procedure, which continued to worsen gradually after she returned home. On evaluation in the emergency room she was found to have a subcapsular splenic hematoma. Her hemoglobin dropped to 6.0 g, at which point she was admitted to the hospital for transfusion. The hematoma stabilized, and she was able to be managed conservatively. Her clinical course, though, was complicated by transfusion associated lung injury, but she did recover uneventfully. During subsequent followup she had remained moderately anemic, and she had persistently elevated sedimentation rate and CRP level. She was treated again with Venofer in June 2014 after her hemoglobin had dropped back down to 8.4 g. With that course of treatment she received a total of 1400 mg, but a followup CBC in September 2014 showed that she was still moderately anemic with a hemoglobin of 9.8 g. At that point she was started back on Venofer infusions, and she then completed an additional 1200 mg total dosage. On a followup visit in November her hemoglobin was adequate at 11.6 g, but the transferrin saturation was back down to 5%, and at that time I did restart Venofer. As of 01/01/2015 she had completed another course of treatment to a total dose of 1000 mg. Following her course of parenteral iron replacement in December 2014 she underwent further GI evaluation in [place]. She was found on capsule endoscopy to have an actively bleeding AVM in the small intestine. On 04/07/2015 she underwent double-balloon enteroscopy with APC by Dr. Royer West. At that time she was confirmed to have multiple AVMs throughout the small intestine. According to the procedure note, APC was applied to a total of 8 AVMs. She tolerated the procedure well. During subsequent follow-up she had continued to require parenteral iron replacement on a fairly regular basis. This included 2 infusions of Injectafer during the remainder of 2014, a total of 4 infusions of Injectafer during 2015, 6 infusions during 2016, and 4 infusions during 2017. She received a total of 8 infusions during 2018. At her follow-up visit on 07/03/2019 her hemoglobin had dropped to 7.7 g. The red cell indices were macrocytic with MCV 104 and MCH 31. Her transferrin saturation was normal at 34% and a ferritin was normal at 358 ng/mL. She was transfused 2 units PRBC. Her stool was retested and was negative for occult blood by IFOB. As of 08/27/2019 the hemoglobin was back down to 8.8 g. Her serum iron studies at that point showed low transferrin saturation at 11.5%, and with that finding, I did opt to give her another infusion of Injectafer. On 10/02/2019 she underwent bone marrow aspiration/biopsy. The cellularity was normal, ranging from 30 to 60%. Megakaryocytes were noted to be mildly increased. There was no evidence of an infiltrative process. There were no overt dysplastic changes. Iron stores were adequate with no ring sideroblasts identified. During follow-up she remained significantly anemic. She required PRBC transfusions again in November and in December. On 03/09/2020 her hemoglobin had dropped back down to 7.3 g, and she was given another 2 units PRBC. During that time she also was scheduled for further GI evaluation with Dr. West in [place]. Her camera endoscopy reportedly showed multiple AVMs. Her other medical illnesses include fibromyalgia, degenerative arthritis, GERD, and anxiety/depression. Surgeries include hysterectomy/bilateral salpingo-oophorectomy in 1997, laparascopic cholecystectomy in 2007, and cystoscopy/anterior repair in January,. She underwent lumbar laminectomy in 2003 and cervical laminectomy/fusion in 2004. She also has had surgery on both elbows. She has a history of smoking up to 2 packs of cigarettes daily for 35 years. She has been trying to quit. Family history is significant for father having of pancreatic cancer at age 62 and mother having of lung cancer at age 76. A brother has hypertension and diabetes and a sister has heart disease. INTERIM HISTORY: During subsequent follow-up her hemoglobin had subsequently stabilized in the range of 10 to 11 g, but she then required transfusion again in June. As of August 2020 there was a severe decline in her hemoglobin to 5.7 g, and she was again transfused PRBC. At that point her serum iron studies were again consistent with iron deficiency, and she was given 2 additional infusions of Injectafer. Her stool was heme negative. She is seen for a follow-up visit. She complains that she feels tired, but she is working. ECOG score is 1. Her appetite has been good. She has gained weight. She does not have fever or night sweats. She has no shortness of breath, cough, or chest pain. She has no GI or complaints. She has not been aware of any blood in the stool. She continues to have generalized aches and pains. She sometimes has headache. She has no focal neurologic symptoms. Medications: ALPRAZolam 1 Tablet (of 0.5 mg) Oral t.i.d. PRN, Ditropan XL 1 (10 mg) Tablet SR 24 HR Oral daily PRN, Estradiol 1 (1 mg) Tablet Oral daily, FLUoxetine HCl 3 Capsule (of 20 mg) Oral daily, HYDROcodone-Acetaminophen 1 Tablet (of 7.5-325 mg) Oral q 4 hours PRN, Montelukast Sodium 10 mg - Take 1 Tablet Oral daily, Protonix 1 (40 mg) Tablet, enteric coated Oral daily, Topiramate 25 mg - Take 1 Tablet Oral daily, Vitamin D3 2000 Units - Take 1 Tablet Oral daily Allergies: Codeine Phosphate and Penicillin G Benzathine. Vital Signs: Performed on Oct 13, 2020 12:43 Height - 57.00 in Weight - 113.4 lbs (HIGH) BSA - 1.41 sq.m BMI - 24.54 Temperature - 98.0 F (LOW) Pulse - 88 /min Respiration - 18 /min BP - 145/70 mm(hg) (HIGH) O2 Sat - 97 % Pain - 0 Fatigue - 10 Physical Examination: Constitutional - She looks pretty good generally, Eyes - Sclerae nonicteric. Conjunctivae clear, ENMT - No lesions noted in the oral cavity, Hematologic/Lymphatic - No cervical, clavicular, or axillary adenopathy, Respiratory - Lungs are clear with diminished air movement bilaterally, Cardiovascular - Heart rhythm is regular. There is a II/ systolic murmur. There is no gallop or rub noted, Abdomen - Soft. Liver and spleen are not enlarged. There is no abdominal mass or ascites noted and there is no inguinal adenopathy, Extremities - No edema, Neurologic - No focal neurologic deficits noted. Lab/Imaging: Test performed on Oct 13, 2020 11:04 WBC 7.5 10 3/uL RBC 3.08 10 6/uL HGB 9.7 g/dL HCT 31.5 % MCV 102.3 fL MCH 31.5 pg MCHC 30.8 g/dL RDW 17.6 % Platelet Count 440 10 3/cmm MPV 10.6 fL Neutrophils 5.41 10 3/uL Lymphocytes 1.6 10 3/uL Monocytes 0.3 10 3/uL Eosinophils 0.2 10 3/uL Basophils 0.0 10 3/uL Neutrophil % 72.4 % Lymphocyte % 21.0 % Monocyte % 3.6 % Eosinophil % 2.0 % Basophils % 0.5 % NRBC % 0 % Problem List: 1. Recurrent iron deficiency anemia since 2012. Her previous GI evaluation with upper and lower endoscopy had shown evidence of gastritis, which was the presumed cause for the iron deficiency. 2. Her colonoscopy procedure in 2012 was complicated by a subcapsular splenic hematoma. It was able to be managed conservatively, but the hematoma did result in a significant drop in her hemoglobin level, and she did require admission to the hospital for transfusion. She subsequently developed acute transfusion related lung injury, but she did have a good recovery. 3. During subsequent follow-up she has had recurrent episodes of iron deficiency anemia, presumed to be due to GI blood loss. She has required transfusion and parenteral iron replacement on multiple occasions. 4. In March 2020 she underwent enteroscopy/APC for multiple small intestine AVMs. 5. GERD. 6. Degenerative arthritis/fibromyalgia with chronic pain. 7. Anxiety/depression. 8. She has nicotine dependence (cigarettes). Problems Addressed with this Encounter and Plan: 1. Recurrent iron deficiency anemia since 2012. Her previous GI evaluation with upper and lower endoscopy had shown evidence of gastritis, which was the presumed cause for the iron deficiency. During subsequent follow-up she has had recurrent episodes of iron deficiency anemia, presumed to be due to GI blood loss. She has required transfusion and parenteral iron replacement on multiple occasions, and in March 2020 she underwent enteroscopy/APC for multiple small intestine AVMs. In August 2020 she presented with a severe decline in her hemoglobin to 5.7 g. She was transfused PRBC. Her serum iron studies at that point were consistent with iron deficiency, and she also was given parenteral iron replacement with 2 additional infusions of Injectafer. Her stool IFOB was negative. She has since then remained moderately anemic, though above transfusion threshold. I have not been able to determine any cause for it other than the blood loss/iron deficiency. At least for now we will continue to monitor her blood counts at 2-week intervals. With her next lab draw I will recheck additional lab studies including reticulocyte count, haptoglobin, LDH, serum iron studies, and B12 level. She will be transfused again as needed, and she can be given additional parenteral iron replacement as needed. I will tentatively plan a follow-up visit in 3 months. 2. She has degenerative arthritis/fibromyalgia with chronic pain. It is managed adequately with hydrocodone/APAP, and it will be continued at the same dosage. Signed By: Harshal Valero M.D. <<Signature on File>>
[2020-10-25 08:55] LABS: Basophils # 0.1 10^3/uL (0.0-0.1); Basophils % 0.6 %; Eosinophils # 0.2 10^3/uL (0.0-0.8); Hematocrit 31.5 % (37.0-47.0); Hemoglobin 9.5 g/dL (11.5-15.3); Lymphocytes # 1.6 10^3/uL (0.8-4.8); Lymphocytes % 15.4 %; Mean Corpuscular HGB Conc 30.2 g/dL (30.0-36.0); Mean Corpuscular Hemoglobin 30.8 pg (28.0-34.0); Mean Corpuscular Volume 102.3 fL (81-99); Monocytes # 0.4 10^3/uL (0.2-0.9); Monocytes % 4.1 %; Neutrophils # 8.02 10^3/uL (1.8-7.7); Neutrophils % 77.3 %; Nucleated Red Blood Cells % 0 %; Platelet Count 434 10^3/cmm (130-400); Red Blood Count 3.08 10^6/uL (4.1-5.3); Red Cell Distribution Width 15.7 % (12.1-15.1); White Blood Count 10.4 10^3/uL (4.0-10.0)
[2020-11-08 09:06] LABS: Basophils # 0.1 10^3/uL (0.0-0.1); Basophils % 0.7 %; Eosinophils # 0.1 10^3/uL (0.0-0.8); Eosinophils % 1.7 %; Hematocrit 33.7 % (37.0-47.0); Hemoglobin 10.3 g/dL (11.5-15.3); Lymphocytes # 1.6 10^3/uL (0.8-4.8); Lymphocytes % 20.7 %; Mean Corpuscular HGB Conc 30.6 g/dL (30.0-36.0); Mean Corpuscular Hemoglobin 30.7 pg (28.0-34.0); Mean Corpuscular Volume 100.3 fL (81-99); Mean Platelet Volume 10.5 fL (7.4-10.4); Monocytes # 0.4 10^3/uL (0.2-0.9); Monocytes % 4.8 %; Neutrophils # 5.39 10^3/uL (1.8-7.7); Neutrophils % 71.8 %; Nucleated Red Blood Cells % 0 %; Platelet Count 504 10^3/cmm (130-400); Red Blood Count 3.36 10^6/uL (4.1-5.3); Red Cell Distribution Width 14.8 % (12.1-15.1); White Blood Count 7.5 10^3/uL (4.0-10.0)
== END 2020-11-10 23:59 | disposition home or self-care (01) ==
LOC: ONCMED 05:20
PROVIDERS: Nurse Practitioner; PCP Nurse Practitioner Family; Visit Provider Internal Medicine Medical Oncology
DX: D64.9 Anemia, unspecified (principal)
CPT/HCPCS: 36415; 85025; 99214

== ENCOUNTER 2020-12-08 08:03 | Outpatient (RCR) | payer MEDICARE, SELFPAY ==
[2020-11-22 09:23] LABS: Basophils # 0.1 10^3/uL (0.0-0.1); Basophils % 0.7 %; Eosinophils # 0.2 10^3/uL (0.0-0.8); Eosinophils % 2.1 %; Hematocrit 29.3 % (37.0-47.0); Hemoglobin 9.1 g/dL (11.5-15.3); Lymphocytes # 1.7 10^3/uL (0.8-4.8); Lymphocytes % 19.9 %; Mean Corpuscular HGB Conc 31.1 g/dL (30.0-36.0); Mean Corpuscular Hemoglobin 30.1 pg (28.0-34.0); Mean Platelet Volume 10.8 fL (7.4-10.4); Monocytes # 0.4 10^3/uL (0.2-0.9); Monocytes % 4.8 %; Neutrophils # 6.21 10^3/uL (1.8-7.7); Nucleated Red Blood Cells % 0 %; Platelet Count 528 10^3/cmm (130-400); Red Blood Count 3.02 10^6/uL (4.1-5.3); Red Cell Distribution Width 14.8 % (12.1-15.1); White Blood Count 8.6 10^3/uL (4.0-10.0)
[2020-12-02 14:06] LABS: Basophils # 0.1 10^3/uL (0.0-0.1); Basophils % 0.8 %; Eosinophils # 0.2 10^3/uL (0.0-0.8); Eosinophils % 2.6 %; Hematocrit 26.6 % (37.0-47.0); Hemoglobin 7.9 g/dL (11.5-15.3); Lymphocytes # 1.7 10^3/uL (0.8-4.8); Lymphocytes % 23.8 %; Mean Corpuscular HGB Conc 29.7 g/dL (30.0-36.0); Mean Corpuscular Hemoglobin 28.9 pg (28.0-34.0); Mean Corpuscular Volume 97.4 fL (81-99); Mean Platelet Volume 10.1 fL (7.4-10.4); Monocytes # 0.4 10^3/uL (0.2-0.9); Monocytes % 5.2 %; Neutrophils # 4.85 10^3/uL (1.8-7.7); Neutrophils % 66.9 %; Nucleated Red Blood Cells % 0 %; Platelet Count 540 10^3/cmm (130-400); Red Blood Count 2.73 10^6/uL (4.1-5.3); Red Cell Distribution Width 15.2 % (12.1-15.1); White Blood Count 7.3 10^3/uL (4.0-10.0)
[2020-12-06 08:40] LABS: Basophils # 0.1 10^3/uL (0.0-0.1); Basophils % 0.8 %; Eosinophils # 0.2 10^3/uL (0.0-0.8); Eosinophils % 2.6 %; Hematocrit 27.1 % (37.0-47.0); Lymphocytes # 1.9 10^3/uL (0.8-4.8); Lymphocytes % 21.4 %; Mean Corpuscular HGB Conc 29.5 g/dL (30.0-36.0); Mean Corpuscular Hemoglobin 28.5 pg (28.0-34.0); Mean Corpuscular Volume 96.4 fL (81-99); Mean Platelet Volume 10.5 fL (7.4-10.4); Monocytes # 0.5 10^3/uL (0.2-0.9); Monocytes % 5.9 %; Neutrophils # 6.08 10^3/uL (1.8-7.7); Neutrophils % 68.6 %; Nucleated Red Blood Cells % 0 %; Platelet Count 539 10^3/cmm (130-400); Red Blood Count 2.81 10^6/uL (4.1-5.3); Red Cell Distribution Width 15.3 % (12.1-15.1); White Blood Count 8.9 10^3/uL (4.0-10.0)
[2020-12-08 08:15] VITALS: BP 129/51; PULSE 72; RESP 18; TEMP 36.6; O2SAT 98
[2020-12-08] MEDS: diphenhydrAMINE 25 mg Capsule PO (08:30)
[2020-12-08] MEDS: acetaminophen 325 mg Tablet 650 MG PO (08:30)
[2020-12-08] MEDS: sodium chloride 0.9% 250 ML 999 ML IV (09:00)
[2020-12-08 09:05] VITALS: BP 129/57; PULSE 72; RESP 18; TEMP 36.6; O2SAT 98
[2020-12-08 09:20] VITALS: BP 146/60; PULSE 75; RESP 18; TEMP 36.7; O2SAT 100
[2020-12-08 09:35] VITALS: BP 145/63; PULSE 74; RESP 18; TEMP 36.9; O2SAT 100
[2020-12-08 10:05] VITALS: BP 142/64; PULSE 74; RESP 18; TEMP 36.9; O2SAT 100
[2020-12-08 10:30] VITALS: PULSE 72; RESP 18; TEMP 36.8; O2SAT 98
[2020-12-08] MEDS: FUROsemide 10 mg/mL SDV 2mL 20 MG IV (10:35)
== END 2020-12-10 23:59 | disposition home or self-care (01) ==
LOC: ONCMED 08:03
PROVIDERS: Internal Medicine Medical Oncology; PCP Nurse Practitioner Family; Visit Provider Nurse Practitioner
DX: D50.0 Iron deficiency anemia secondary to blood loss (chronic) (principal)
CPT/HCPCS: 36415; 36430; 85025; 86850; 86900; 86920; J1940; J7050; P9016

== ENCOUNTER 2020-12-20 06:04 | Outpatient (RCR) | payer MEDICARE, SELFPAY ==
[2020-12-20 08:52] LABS: Basophils # 0.1 10^3/uL (0.0-0.1); Basophils % 0.6 %; Eosinophils # 0.2 10^3/uL (0.0-0.8); Eosinophils % 1.8 %; Hematocrit 32.3 % (37.0-47.0); Hemoglobin 10.1 g/dL (11.5-15.3); Lymphocytes # 1.9 10^3/uL (0.8-4.8); Lymphocytes % 19.8 %; Mean Corpuscular HGB Conc 31.3 g/dL (30.0-36.0); Mean Corpuscular Hemoglobin 29.4 pg (28.0-34.0); Mean Corpuscular Volume 93.9 fL (81-99); Mean Platelet Volume 10.7 fL (7.4-10.4); Monocytes # 0.6 10^3/uL (0.2-0.9); Monocytes % 5.6 %; Neutrophils # 6.97 10^3/uL (1.8-7.7); Neutrophils % 71.7 %; Nucleated Red Blood Cells % 0 %; Platelet Count 449 10^3/cmm (130-400); Red Blood Count 3.44 10^6/uL (4.1-5.3); Red Cell Distribution Width 14.2 % (12.1-15.1); White Blood Count 9.7 10^3/uL (4.0-10.0)
== END 2021-01-10 23:59 | disposition home or self-care (01) ==
LOC: ONCMED 06:04
PROVIDERS: PCP Nurse Practitioner Family; Visit Provider Nurse Practitioner
DX: D64.9 Anemia, unspecified (principal)
CPT/HCPCS: 36415; 85025

== ENCOUNTER 2020-12-30 14:33 | Outpatient (RCR) | payer MEDICARE, SELFPAY | END 2021-01-10 23:59 | disposition home or self-care (01) | LOC: SPT 14:33 | PROVIDERS: PCP Nurse Practitioner Family; Referring Provider Nurse Practitioner Family; Visit Provider Nurse Practitioner Family | DX: M54.89 Other dorsalgia (principal); G89.29 Other chronic pain | CPT/HCPCS: 97161 ==

== ENCOUNTER 2021-02-07 05:36 | Outpatient (RCR) | payer MEDICARE, SELFPAY ==
[2021-01-17 09:53] LABS: Basophils % 0.5 %; Eosinophils # 0.1 10^3/uL (0.0-0.8); Eosinophils % 1.5 %; Hematocrit 23.7 % (37.0-47.0); Hemoglobin 7.1 g/dL (11.5-15.3); Lymphocytes # 1.4 10^3/uL (0.8-4.8); Lymphocytes % 17.8 %; Mean Corpuscular Hemoglobin 26.9 pg (28.0-34.0); Mean Corpuscular Volume 89.8 fL (81-99); Mean Platelet Volume 10.5 fL (7.4-10.4); Monocytes # 0.4 10^3/uL (0.2-0.9); Monocytes % 4.6 %; Neutrophils # 6.09 10^3/uL (1.8-7.7); Neutrophils % 75.1 %; Nucleated Red Blood Cells % 0 %; Platelet Count 567 10^3/cmm (130-400); Red Blood Count 2.64 10^6/uL (4.1-5.3); Red Cell Distribution Width 15.1 % (12.1-15.1); White Blood Count 8.1 10^3/uL (4.0-10.0)
[2021-01-17 10:18] LABS: Ferritin 21 ng/mL (15-150); Iron 13 ug/dL (37-145); Lactate Dehydrogenase 345 U/L (135-214); Percent Saturation 4.6 % (20-50); Total Iron Binding Capacity 281 mcg/dl; Unsaturated Iron Binding 268 ug/dL (112-347)
[2021-01-17 10:31] LABS: Vitamin B12 497 pg/mL (232-1245)
[2021-01-17] MEDS: diphenhydrAMINE 25 mg Capsule PO (11:30)
[2021-01-17] MEDS: acetaminophen 325 mg Tablet 650 MG PO (11:30)
[2021-01-17] MEDS: sodium chloride 0.9% 250 ML 999 ML IV (11:30)
[2021-01-17] MEDS: FUROsemide 10 mg/mL SDV 2mL 20 MG IV (12:30)
[2021-01-17 19:24] LABS: Alanine Aminotransferase 10 U/L (0-33); Albumin Level 4.3 g/dL (3.5-5.2); Alkaline Phosphatase 153 IU/L (35-105); Anion Gap 16.3 (5-19); Aspartate Amino Transferase 21 U/L (0-32); Blood Urea Nitrogen 5 mg/dL (8-23); Calcium 8.5 mg/dL (8.5-10.5); Carbon Dioxide 22 mmol/L (22-29); Chloride 100 mmol/L (98-107); Globulin 2.5 g/dL (1.3-4.6); Glomerular Filtration Rate 84.5 mL/min (90-130); Glucose 75 mg/dL (65-115); Osmolality Calculated 274 mOsm/kg (285-295); Potassium 4.3 mmol/L (3.5-5.1); Sodium 134 mmol/L (136-145); Total Bilirubin 0.2 mg/dL (0.15-1.2); Total Protein 6.8 g/dL (6.6-8.7)
--- NOTE | 2021-01-21 08:10 | ONC FU_ITS ---
Dr. Valero Patient Follow-Up Note Patient: Emma Porras Unit #: [id number]: 1955 Dicatated By: Harshal Valero M.D.Date of Visit:Jan 18, 2021 Onc Med Follow-up/Prog Note Chief Complaint: Anemia. History of Present Illness: This is a 65 year-old woman with persistent/recurrent anemia. Her laboratory studies from November 2012 showed a hypochromic/microcytic anemia with transferrin saturation 3% and ferritin low at 2.5 ng/mL. By the time I had seen her in January the hemoglobin was down to 7.4 g. She was given parenteral iron replacement with Venofer, which she completed in February 2013. As of July 2013 her hemoglobin was up to 12.8 g. She underwent upper and lower GI endoscopy in November. The upper endoscopy did show evidence of gastritis, which was the presumed cause for the iron deficiency. There were no significant abnormalities noted on the colonoscopy. She did complain of generalized abdominal pain following the procedure, which continued to worsen gradually after she returned home. On evaluation in the emergency room she was found to have a subcapsular splenic hematoma. Her hemoglobin dropped to 6.0 g, at which point she was admitted to the hospital for transfusion. The hematoma stabilized, and she was able to be managed conservatively. Her clinical course, though, was complicated by transfusion associated lung injury, but she did recover uneventfully. During subsequent followup she had remained moderately anemic, and she had persistently elevated sedimentation rate and CRP level. She was treated again with Venofer in June 2014 after her hemoglobin had dropped back down to 8.4 g. With that course of treatment she received a total of 1400 mg, but a followup CBC in September 2014 showed that she was still moderately anemic with a hemoglobin of 9.8 g. At that point she was started back on Venofer infusions, and she then completed an additional 1200 mg total dosage. On a followup visit in November her hemoglobin was adequate at 11.6 g, but the transferrin saturation was back down to 5%, and at that time I did restart Venofer. As of 01/01/2015 she had completed another course of treatment to a total dose of 1000 mg. Following her course of parenteral iron replacement in December 2014 she underwent further GI evaluation in [place]. She was found on capsule endoscopy to have an actively bleeding AVM in the small intestine. On 04/07/2015 she underwent double-balloon enteroscopy with APC by Dr. Royer West. At that time she was confirmed to have multiple AVMs throughout the small intestine. According to the procedure note, APC was applied to a total of 8 AVMs. She tolerated the procedure well. During subsequent follow-up she had continued to require parenteral iron replacement on a fairly regular basis. This included 2 infusions of Injectafer during the remainder of 2014, a total of 4 infusions of Injectafer during 2015, 6 infusions during 2016, and 4 infusions during 2017. She received a total of 8 infusions during 2018. At her follow-up visit on 07/03/2019 her hemoglobin had dropped to 7.7 g. The red cell indices were macrocytic with MCV 104 and MCH 31. Her transferrin saturation was normal at 34% and a ferritin was normal at 358 ng/mL. She was transfused 2 units PRBC. Her stool was retested and was negative for occult blood by IFOB. As of 08/27/2019 the hemoglobin was back down to 8.8 g. Her serum iron studies at that point showed low transferrin saturation at 11.5%, and with that finding, I did opt to give her another infusion of Injectafer. On 10/02/2019 she underwent bone marrow aspiration/biopsy. The cellularity was normal, ranging from 30 to 60%. Megakaryocytes were noted to be mildly increased. There was no evidence of an infiltrative process. There were no overt dysplastic changes. Iron stores were adequate with no ring sideroblasts identified. During follow-up she remained significantly anemic. She required PRBC transfusions again in November and in December. On 03/09/2020 her hemoglobin had dropped back down to 7.3 g, and she was given another 2 units PRBC. During that time she also was scheduled for further GI evaluation with Dr. West in [place]. Her camera endoscopy reportedly showed multiple AVMs. Her other medical illnesses include fibromyalgia, degenerative arthritis, GERD, and anxiety/depression. Surgeries include hysterectomy/bilateral salpingo-oophorectomy in 1997, laparascopic cholecystectomy in 2007, and cystoscopy/anterior repair in January,. She underwent lumbar laminectomy in 2003 and cervical laminectomy/fusion in 2004. She also has had surgery on both elbows. She has a history of smoking up to 2 packs of cigarettes daily for 35 years. She has been trying to quit. Family history is significant for father having of pancreatic cancer at age 62 and mother having of lung cancer at age 76. A brother has hypertension and diabetes and a sister has heart disease. INTERIM HISTORY: During subsequent follow-up her hemoglobin had subsequently stabilized in the range of 10 to 11 g, but she then required transfusion again in June. As of August 2020 there was a severe decline in her hemoglobin to 5.7 g, and she was again transfused PRBC. At that point her serum iron studies were again consistent with iron deficiency, and she was given 2 additional infusions of Injectafer. Her stool was heme negative. Her blood counts have been stabilized again with hemoglobin in the range of 9 to 10 g, but in November she did require transfusion again when it dropped to 7.9 g. She was then transfused again yesterday with her hemoglobin back down to 7.1 g. Her serum iron studies at that time were consistent with iron deficiency with transferrin saturation 4.6%. Her B12 level was normal at 497 pg/mL. She had been feeling very tired prior to the transfusion yesterday, but she has still been working. Her ECOG score is 1. Her appetite has not been that good, but her weight has been stable. She does not have fever or night sweats. She says her breathing has been okay. She does not complain of cough and she has not been having chest pain. She has no GI complaints other than occasional heartburn. Bowel function has been okay, and she has not been aware of any blood in the stool. She has frequent urination. She complains that her legs hurt a lot when she walks. She does have back pain, but not that bad. She has been taking pain medication only on an occasional basis. She has headache at least once or twice a week. She sometimes has dizziness. She occasionally has numbness/tingling. Medications: ALPRAZolam 1 Tablet (of 0.5 mg) Oral t.i.d. PRN, Ditropan XL 1 (10 mg) Tablet SR 24 HR Oral daily PRN, Estradiol 1 (1 mg) Tablet Oral daily, FLUoxetine HCl 3 Capsule (of 20 mg) Oral daily, HYDROcodone-Acetaminophen 1 Tablet (of 7.5-325 mg) Oral q 4 hours PRN, Montelukast Sodium 10 mg - Take 1 Tablet Oral daily, Protonix 1 (40 mg) Tablet, enteric coated Oral daily, Topiramate 25 mg - Take 1 Tablet Oral daily, Vitamin D3 2000 Units - Take 1 Tablet Oral daily Allergies: Codeine Phosphate and Penicillin G Benzathine. Vital Signs: Performed on Jan 18, 2021 12:25 Height - 57.00 in Weight - 113.4 lbs (HIGH) BSA - 1.41 sq.m BMI - 24.54 Temperature - 98.7 F Pulse - 79 /min Respiration - 18 /min BP - 128/66 mm(hg) O2 Sat - 96 % Pain - 0 Fatigue - 0 Physical Examination: Constitutional - She looks pretty good generally, Eyes - Sclerae nonicteric. Conjunctivae clear, ENMT - No lesions noted in the oral cavity, Hematologic/Lymphatic - No cervical, clavicular, or axillary adenopathy, Respiratory - Lungs are clear with diminished air movement bilaterally, Cardiovascular - Heart rhythm is regular. There is a II/ systolic murmur. There is no gallop or rub noted, Abdomen - Soft. Liver and spleen are not enlarged. There is no abdominal mass or ascites noted and there is no inguinal adenopathy, Extremities - No edema, Neurologic - No focal neurologic deficits noted. Lab/Imaging: Her laboratory studies on 01/17/2021 included CBC showing hemoglobin 7.1 g with hematocrit 23%. White blood cell count was 8100 and platelet count was 567,000. Her serum iron studies showed low transferrin saturation at 13% and ferritin also was low at 21 ng/mL. LDH was mildly elevated at 345 U/L with haptoglobin normal at 229.0 mg/L. B12 level was normal at 497 pg/mL. Problem List: 1. Recurrent iron deficiency anemia since 2012. Her previous GI evaluation with upper and lower endoscopy had shown evidence of gastritis, which was the presumed cause for the iron deficiency. 2. Her colonoscopy procedure in 2012 was complicated by a subcapsular splenic hematoma. It was able to be managed conservatively, but the hematoma did result in a significant drop in her hemoglobin level, and she did require admission to the hospital for transfusion. She subsequently developed acute transfusion related lung injury, but she did have a good recovery. 3. During subsequent follow-up she has had recurrent episodes of iron deficiency anemia, presumed to be due to GI blood loss. She has required transfusion and parenteral iron replacement on multiple occasions. 4. In March 2020 she underwent enteroscopy/APC for multiple small intestine AVMs. 5. GERD. 6. Degenerative arthritis/fibromyalgia with chronic pain. 7. Anxiety/depression. 8. She has nicotine dependence (cigarettes). Problems Addressed with this Encounter and Plan: 1. Patient with recurrent iron deficiency anemia since 2012. Her previous GI evaluation with upper and lower endoscopy had shown evidence of gastritis, which was the presumed cause for the iron deficiency. During subsequent follow-up she has had recurrent episodes of iron deficiency anemia, presumed to be due to GI blood loss. She has required transfusion and parenteral iron replacement on multiple occasions, and in March 2020 she underwent enteroscopy/APC for multiple small intestine AVMs. In August 2020 she presented with a severe decline in her hemoglobin to 5.7 g. She was transfused PRBC. Her serum iron studies at that point were consistent with iron deficiency, and she also was given parenteral iron replacement with 2 additional infusions of Injectafer. Her stool IFOB was negative. During follow-up she remained moderately anemic, though above transfusion threshold. I was not able to determine any cause for it other than the blood loss/iron deficiency. She required PRBC transfusion again in November and as of yesterday her hemoglobin was back down to 7.1 g with transferrin saturation low at 4.6%, consistent with iron deficiency. She was transfused 2 units PRBC, and she will not be given parenteral iron replacement with 2 additional infusions of Injectafer. Blood counts will be monitored every 2 weeks. She will be scheduled for a follow-up visit in 3 months. 2. She has degenerative arthritis/fibromyalgia with chronic pain. It is managed adequately with hydrocodone/APAP, which she is just taking as needed. Signed By: Harshal Valero M.D. <<Signature on File>>
[2021-01-27 15:45] LABS: Basophils # 0.1 10^3/uL (0.0-0.1); Basophils % 0.5 %; Eosinophils # 0.1 10^3/uL (0.0-0.8); Eosinophils % 1.4 %; Hemoglobin 11.1 g/dL (11.5-15.3); Lymphocytes # 1.8 10^3/uL (0.8-4.8); Lymphocytes % 19.2 %; Mean Corpuscular HGB Conc 31.7 g/dL (30.0-36.0); Mean Corpuscular Hemoglobin 27.8 pg (28.0-34.0); Mean Corpuscular Volume 87.7 fL (81-99); Mean Platelet Volume 10.8 fL (7.4-10.4); Monocytes # 0.5 10^3/uL (0.2-0.9); Monocytes % 5.7 %; Neutrophils # 6.74 10^3/uL (1.8-7.7); Neutrophils % 72.9 %; Nucleated Red Blood Cells % 0 %; Platelet Count 426 10^3/cmm (130-400); Red Blood Count 3.99 10^6/uL (4.1-5.3); Red Cell Distribution Width 14.2 % (12.1-15.1); White Blood Count 9.3 10^3/uL (4.0-10.0)
[2021-01-31 08:57] LABS: Basophils # 0.1 10^3/uL (0.0-0.1); Basophils % 0.6 %; Eosinophils # 0.1 10^3/uL (0.0-0.8); Eosinophils % 1.5 %; Hematocrit 34.4 % (37.0-47.0); Lymphocytes # 1.8 10^3/uL (0.8-4.8); Lymphocytes % 18.4 %; Mean Corpuscular Hemoglobin 28.8 pg (28.0-34.0); Mean Corpuscular Volume 90.1 fL (81-99); Mean Platelet Volume 11.2 fL (7.4-10.4); Monocytes # 0.5 10^3/uL (0.2-0.9); Monocytes % 5.3 %; Neutrophils # 7.09 10^3/uL (1.8-7.7); Neutrophils % 73.9 %; Nucleated Red Blood Cells % 0 %; Platelet Count 401 10^3/cmm (130-400); Red Blood Count 3.82 10^6/uL (4.1-5.3); Red Cell Distribution Width 14.7 % (12.1-15.1); White Blood Count 9.6 10^3/uL (4.0-10.0)
[2021-02-03] MEDS: ferric carboxy (IVPB) 750 MG in sodium chloride 0.9% (100 ml) 100 ML 460 MG IV (15:00)
[2021-02-07 09:49] LABS: Basophils # 0.1 10^3/uL (0.0-0.1); Basophils % 0.6 %; Eosinophils # 0.2 10^3/uL (0.0-0.8); Hemoglobin 10.7 g/dL (11.5-15.3); Lymphocytes # 1.4 10^3/uL (0.8-4.8); Lymphocytes % 15.8 %; Mean Corpuscular HGB Conc 31.5 g/dL (30.0-36.0); Mean Corpuscular Hemoglobin 28.3 pg (28.0-34.0); Mean Corpuscular Volume 89.9 fL (81-99); Monocytes # 0.5 10^3/uL (0.2-0.9); Monocytes % 5.3 %; Neutrophils # 6.82 10^3/uL (1.8-7.7); Neutrophils % 75.5 %; Nucleated Red Blood Cells % 0 %; Platelet Count 490 10^3/cmm (130-400); Red Blood Count 3.78 10^6/uL (4.1-5.3); Red Cell Distribution Width 15.5 % (12.1-15.1)
== END 2021-02-09 23:59 | disposition home or self-care (01) ==
LOC: ONCMED 05:36
PROVIDERS: Nurse Practitioner; PCP Nurse Practitioner Family; Visit Provider Internal Medicine Medical Oncology
DX: D50.0 Iron deficiency anemia secondary to blood loss (chronic) (principal); K21.9 Gastro-esophageal reflux disease without esophagitis; M79.7 Fibromyalgia; G89.4 Chronic pain syndrome; F41.9 Anxiety disorder, unspecified; F32.9 Major depressive disorder, single episode, unspecified; F17.210 Nicotine dependence, cigarettes, uncomplicated; Z79.899 Other long term (current) drug therapy
CPT/HCPCS: 36415; 80053; 82607; 82728; 83010; 83540; 83550; 83615; 85025; 85045; 86850; 86900; 86920; 96365; 99214; J1439; J1940; J7050; P9016

== ENCOUNTER 2021-03-02 13:12 | Outpatient (RCR) | payer MEDICARE, SELFPAY ==
[2021-02-10] MEDS: ferric carboxy (IVPB) 750 MG in sodium chloride 0.9% (100 ml) 100 ML 460 MG IV (14:45)
[2021-02-21 11:31] LABS: Basophils % 0.3 %; Eosinophils # 0.1 10^3/uL (0.0-0.8); Eosinophils % 0.9 %; Hematocrit 34.6 % (37.0-47.0); Lymphocytes # 1.7 10^3/uL (0.8-4.8); Lymphocytes % 18.5 %; Mean Corpuscular HGB Conc 31.8 g/dL (30.0-36.0); Mean Corpuscular Hemoglobin 30.6 pg (28.0-34.0); Mean Corpuscular Volume 96.1 fL (81-99); Mean Platelet Volume 10.5 fL (7.4-10.4); Monocytes # 0.4 10^3/uL (0.2-0.9); Monocytes % 4.6 %; Neutrophils # 6.72 10^3/uL (1.8-7.7); Neutrophils % 75.1 %; Nucleated Red Blood Cells % 0 %; Platelet Count 370 10^3/cmm (130-400); Red Cell Distribution Width 19.8 % (12.1-15.1); White Blood Count 8.9 10^3/uL (4.0-10.0)
[2021-03-02 13:43] LABS: Basophils % 0.4 %; Eosinophils # 0.1 10^3/uL (0.0-0.8); Eosinophils % 0.8 %; Hematocrit 32.6 % (37.0-47.0); Hemoglobin 10.6 g/dL (11.5-15.3); Lymphocytes # 1.4 10^3/uL (0.8-4.8); Lymphocytes % 19.6 %; Mean Corpuscular HGB Conc 32.5 g/dL (30.0-36.0); Mean Corpuscular Hemoglobin 30.7 pg (28.0-34.0); Mean Corpuscular Volume 94.5 fL (81-99); Mean Platelet Volume 10.2 fL (7.4-10.4); Monocytes # 0.4 10^3/uL (0.2-0.9); Monocytes % 5.6 %; Neutrophils # 5.25 10^3/uL (1.8-7.7); Neutrophils % 73.3 %; Nucleated Red Blood Cells % 0 %; Platelet Count 394 10^3/cmm (130-400); Red Blood Count 3.45 10^6/uL (4.1-5.3); Red Cell Distribution Width 18.4 % (12.1-15.1); White Blood Count 7.2 10^3/uL (4.0-10.0)
== END 2021-03-12 23:59 | disposition home or self-care (01) ==
LOC: ONCMED 13:12
PROVIDERS: PCP Nurse Practitioner Family; Visit Provider Internal Medicine Medical Oncology
DX: D50.0 Iron deficiency anemia secondary to blood loss (chronic) (principal); Z79.899 Other long term (current) drug therapy
CPT/HCPCS: 36415; 85025; 96365; J1439

== ENCOUNTER 2021-04-11 05:34 | Outpatient (RCR) | payer MEDICARE, SELFPAY ==
[2021-03-22 12:07] LABS: Basophils # 0.1 10^3/uL (0.0-0.1); Basophils % 0.6 %; Eosinophils # 0.1 10^3/uL (0.0-0.8); Eosinophils % 1.3 %; Hematocrit 34.2 % (37.0-47.0); Hemoglobin 10.6 g/dL (11.5-15.3); Lymphocytes # 1.6 10^3/uL (0.8-4.8); Lymphocytes % 19.7 %; Mean Corpuscular Hemoglobin 31.3 pg (28.0-34.0); Mean Corpuscular Volume 100.9 fL (81-99); Mean Platelet Volume 10.9 fL (7.4-10.4); Monocytes # 0.4 10^3/uL (0.2-0.9); Monocytes % 5.3 %; Neutrophils # 5.91 10^3/uL (1.8-7.7); Neutrophils % 72.2 %; Nucleated Red Blood Cells % 0 %; Platelet Count 381 10^3/cmm (130-400); Red Blood Count 3.39 10^6/uL (4.1-5.3); Red Cell Distribution Width 16.8 % (12.1-15.1); White Blood Count 8.2 10^3/uL (4.0-10.0)
[2021-04-05 09:21] LABS: Basophils % 0.5 %; Eosinophils # 0.1 10^3/uL (0.0-0.8); Eosinophils % 1.1 %; Hematocrit 31.2 % (37.0-47.0); Hemoglobin 9.7 g/dL (11.5-15.3); Lymphocytes # 1.1 10^3/uL (0.8-4.8); Lymphocytes % 16.5 %; Mean Corpuscular HGB Conc 31.1 g/dL (30.0-36.0); Mean Corpuscular Hemoglobin 30.5 pg (28.0-34.0); Mean Corpuscular Volume 98.1 fl (81-99); Mean Platelet Volume 10.6 fL (7.4-10.4); Monocytes # 0.3 10^3/uL (0.2-0.9); Monocytes % 4.8 %; Neutrophils # 5.11 10^3/uL (1.8-7.7); Neutrophils % 76.8 %; Nucleated Red Blood Cells % 0 %; Platelet Count 422 10^3/cmm (130-400); Red Blood Count 3.18 10^6/uL (4.1-5.3); White Blood Count 6.7 10^3/uL (4.0-10.0)
[2021-04-11 10:45] LABS: Basophils % 0.6 %; Eosinophils # 0.1 10^3/uL (0.0-0.8); Hematocrit 31.2 % (37.0-47.0); Hemoglobin 9.8 g/dL (11.5-15.3); Lymphocytes # 1.4 10^3/uL (0.8-4.8); Lymphocytes % 20.2 %; Mean Corpuscular HGB Conc 31.4 g/dL (30.0-36.0); Mean Corpuscular Hemoglobin 31.1 pg (28.0-34.0); Mean Platelet Volume 10.9 fL (7.4-10.4); Monocytes # 0.2 10^3/uL (0.2-0.9); Monocytes % 3.4 %; Neutrophils # 5.32 10^3/uL (1.8-7.7); Neutrophils % 74.5 %; Nucleated Red Blood Cells % 0 %; Platelet Count 390 10^3/cmm (130-400); Red Blood Count 3.15 10^6/uL (4.1-5.3); Red Cell Distribution Width 14.9 % (12.1-15.1); White Blood Count 7.1 10^3/uL (4.0-10.0)
== END 2021-04-12 23:59 | disposition home or self-care (01) ==
LOC: ONCMED 05:34
PROVIDERS: PCP Nurse Practitioner Family; Visit Provider Internal Medicine Medical Oncology
DX: D50.0 Iron deficiency anemia secondary to blood loss (chronic) (principal); Z79.899 Other long term (current) drug therapy
CPT/HCPCS: 36415; 85025

== ENCOUNTER 2021-05-11 06:29 | Outpatient (RCR) | payer MEDICARE, SELFPAY ==
[2021-04-25 09:43] LABS: Basophils % 0.5 %; Eosinophils # 0.1 10^3/uL (0.0-0.8); Eosinophils % 1.4 %; Hematocrit 30.1 % (37.0-47.0); Hemoglobin 9.3 g/dL (11.5-15.3); Lymphocytes # 1.4 10^3/uL (0.8-4.8); Lymphocytes % 16.2 %; Mean Corpuscular HGB Conc 30.9 g/dL (30.0-36.0); Mean Corpuscular Hemoglobin 30.3 pg (28.0-34.0); Monocytes # 0.4 10^3/uL (0.2-0.9); Monocytes % 4.3 %; Neutrophils # 6.44 10^3/uL (1.8-7.7); Neutrophils % 77.4 %; Nucleated Red Blood Cells % 0 %; Platelet Count 413 10^3/cmm (130-400); Red Blood Count 3.07 10^6/uL (4.1-5.3); Red Cell Distribution Width 14.1 % (12.1-15.1); White Blood Count 8.3 10^3/uL (4.0-10.0)
[2021-05-02 09:53] LABS: Basophils % 0.6 %; Eosinophils # 0.1 10^3/uL (0.0-0.8); Eosinophils % 1.5 %; Hematocrit 28.4 % (37.0-47.0); Hemoglobin 8.7 g/dL (11.5-15.3); Lymphocytes # 1.1 10^3/uL (0.8-4.8); Lymphocytes % 20.8 %; Mean Corpuscular HGB Conc 30.6 g/dL (30.0-36.0); Mean Corpuscular Hemoglobin 29.9 pg (28.0-34.0); Mean Corpuscular Volume 97.6 fl (81-99); Mean Platelet Volume 10.6 fL (7.4-10.4); Monocytes # 0.2 10^3/uL (0.2-0.9); Monocytes % 4.2 %; Neutrophils # 3.83 10^3/uL (1.8-7.7); Neutrophils % 72.3 %; Nucleated Red Blood Cells % 0 %; Platelet Count 446 10^3/cmm (130-400); Red Blood Count 2.91 10^6/uL (4.1-5.3); Red Cell Distribution Width 14.4 % (12.1-15.1); White Blood Count 5.3 10^3/uL (4.0-10.0)
[2021-05-02 10:12] LABS: Anion Gap 12.3 (5-19); Blood Urea Nitrogen 7 mg/dL (8-23); Calcium 8.7 mg/dL (8.5-10.5); Carbon Dioxide 25 mmol/L (22-29); Chloride 104 mmol/L (98-107); Glomerular Filtration Rate 84.5 mL/min (90-130); Glucose 94 mg/dL (65-115); Osmolality Calculated 282 mOsm/kg (285-295); Potassium 4.3 mmol/L (3.5-5.1); Sodium 137 mmol/L (136-145)
[2021-05-02 10:13] LABS: Alanine Aminotransferase 12 U/L (0-33); Albumin Level 3.8 g/dL (3.5-5.2); Alkaline Phosphatase 169 IU/L (35-105); Aspartate Amino Transferase 19 U/L (0-32); Ferritin 97 ng/mL (15-150); Globulin 2.9 g/dL (1.3-4.6); Iron 28 ug/dL (37-145); Percent Saturation 13.3 % (20-50); Total Bilirubin 0.2 mg/dL (0.15-1.2); Total Iron Binding Capacity 209 mcg/dl; Total Protein 6.7 g/dL (6.6-8.7); Unsaturated Iron Binding 181 ug/dL (112-347)
[2021-05-02 10:28] LABS: Vitamin B12 429 pg/mL (232-1245)
--- NOTE | 2021-05-08 13:49 | ONC FU_ITS ---
Dr. Valero Patient Follow-Up Note Patient: Emma Porras Unit #: [id number]: 1955 Dicatated By: Harshal Valero M.D.Date of Visit:May 05, 2021 Onc Med Follow-up/Prog Note Chief Complaint: Anemia. History of Present Illness: This is a 65 year-old woman with persistent/recurrent anemia. Her laboratory studies from November 2012 showed a hypochromic/microcytic anemia with transferrin saturation 3% and ferritin low at 2.5 ng/mL. By the time I had seen her in January the hemoglobin was down to 7.4 g. She was given parenteral iron replacement with Venofer, which she completed in February 2013. As of July 2013 her hemoglobin was up to 12.8 g. She underwent upper and lower GI endoscopy in November. The upper endoscopy did show evidence of gastritis, which was the presumed cause for the iron deficiency. There were no significant abnormalities noted on the colonoscopy. She did complain of generalized abdominal pain following the procedure, which continued to worsen gradually after she returned home. On evaluation in the emergency room she was found to have a subcapsular splenic hematoma. Her hemoglobin dropped to 6.0 g, at which point she was admitted to the hospital for transfusion. The hematoma stabilized, and she was able to be managed conservatively. Her clinical course, though, was complicated by transfusion associated lung injury, but she did recover uneventfully. During subsequent followup she had remained moderately anemic, and she had persistently elevated sedimentation rate and CRP level. She was treated again with Venofer in June 2014 after her hemoglobin had dropped back down to 8.4 g. With that course of treatment she received a total of 1400 mg, but a followup CBC in September 2014 showed that she was still moderately anemic with a hemoglobin of 9.8 g. At that point she was started back on Venofer infusions, and she then completed an additional 1200 mg total dosage. On a followup visit in November her hemoglobin was adequate at 11.6 g, but the transferrin saturation was back down to 5%, and at that time I did restart Venofer. As of 01/01/2015 she had completed another course of treatment to a total dose of 1000 mg. Following her course of parenteral iron replacement in December 2014 she underwent further GI evaluation in [place]. She was found on capsule endoscopy to have an actively bleeding AVM in the small intestine. On 04/07/2015 she underwent double-balloon enteroscopy with APC by Dr. Royer West. At that time she was confirmed to have multiple AVMs throughout the small intestine. According to the procedure note, APC was applied to a total of 8 AVMs. She tolerated the procedure well. During subsequent follow-up she had continued to require parenteral iron replacement on a fairly regular basis. This included 2 infusions of Injectafer during the remainder of 2014, a total of 4 infusions of Injectafer during 2015, 6 infusions during 2016, and 4 infusions during 2017. She received a total of 8 infusions during 2018. At her follow-up visit on 07/03/2019 her hemoglobin had dropped to 7.7 g. The red cell indices were macrocytic with MCV 104 and MCH 31. Her transferrin saturation was normal at 34% and a ferritin was normal at 358 ng/mL. She was transfused 2 units PRBC. Her stool was retested and was negative for occult blood by IFOB. As of 08/27/2019 the hemoglobin was back down to 8.8 g. Her serum iron studies at that point showed low transferrin saturation at 11.5%, and with that finding, I did opt to give her another infusion of Injectafer. On 10/02/2019 she underwent bone marrow aspiration/biopsy. The cellularity was normal, ranging from 30 to 60%. Megakaryocytes were noted to be mildly increased. There was no evidence of an infiltrative process. There were no overt dysplastic changes. Iron stores were adequate with no ring sideroblasts identified. During follow-up she remained significantly anemic. She required PRBC transfusions again in November and in December. On 03/09/2020 her hemoglobin had dropped back down to 7.3 g, and she was given another 2 units PRBC. During that time she also was scheduled for further GI evaluation with Dr. West in [place]. Her camera endoscopy reportedly showed multiple AVMs. Her other medical illnesses include fibromyalgia, degenerative arthritis, GERD, and anxiety/depression. Surgeries include hysterectomy/bilateral salpingo-oophorectomy in 1997, laparascopic cholecystectomy in 2007, and cystoscopy/anterior repair in January,. She underwent lumbar laminectomy in 2003 and cervical laminectomy/fusion in 2004. She also has had surgery on both elbows. She has a history of smoking up to 2 packs of cigarettes daily for 35 years. She has been trying to quit. Family history is significant for father having of pancreatic cancer at age 62 and mother having of lung cancer at age 76. A brother has hypertension and diabetes and a sister has heart disease. INTERIM HISTORY: During follow-up her hemoglobin had subsequently stabilized in the range of 10 to 11 g, but she then required transfusion again in June. As of August 2020 there was a severe decline in her hemoglobin to 5.7 g, and she was again transfused PRBC. At that point her serum iron studies were again consistent with iron deficiency, and she was given 2 additional infusions of Injectafer. Her stool was heme negative. Her blood counts have been stabilized again with hemoglobin in the range of 9 to 10 g, but in November she did require transfusion again when it dropped to 7.9 g. She was then transfused again in January with her hemoglobin back down to 7.1 g. Her serum iron studies at that time were consistent with iron deficiency with transferrin saturation 4.6%, and she did receive 2 additional infusions of Injectafer. Her hemoglobin had subsequently increased to 11 g. Thereafter it showed a continual though very gradual decline. As of 05/02/2021 her hemoglobin was back down to 8.7 g with serum iron studies showing transferrin saturation 13%, consistent with iron deficiency. She is seen for a follow-up visit. She complains that she is very tired, though she is still doing light work. ECOG score is 1. She has pretty good appetite. She has not had fever or night sweats. She does report having some sinus drainage. She has not had sore mouth or throat. She has no shortness of breath, cough, or chest pain. She has no GI complaints other than her stools look a little darker than usual. She has been having more frequent urination. She has chronic back and joint pain, which lately has been doing somewhat better. She is taking her pain medication only as needed. She has occasional headache. She has some orthostatic lightheadedness. She has no numbness/paresthesia or other focal neurologic symptoms. Medications: ALPRAZolam 1 Tablet (of 0.5 mg) Oral t.i.d. PRN, Ditropan XL 1 (10 mg) Tablet SR 24 HR Oral daily PRN, Estradiol 1 (1 mg) Tablet Oral daily, FLUoxetine HCl 3 Capsule (of 20 mg) Oral daily, HYDROcodone-Acetaminophen 1 Tablet (of 7.5-325 mg) Oral q 4 hours PRN, Montelukast Sodium 10 mg - Take 1 Tablet Oral daily, Protonix 1 (40 mg) Tablet, enteric coated Oral daily, Topiramate 25 mg - Take 1 Tablet Oral daily, Vitamin D3 2000 Units - Take 1 Tablet Oral daily Allergies: Codeine Phosphate and Penicillin G Benzathine. Vital Signs: Performed on May 05, 2021 14:42 Height - 57.00 in Weight - 105.6 lbs (LOW) BSA - 1.37 sq.m BMI - 22.85 Temperature - 98.7 F Pulse - 92 /min Respiration - 18 /min BP - 126/61 mm(hg) O2 Sat - 96 % Pain - 0 Fatigue - 7 Physical Examination: Constitutional - She looks pretty good generally, Eyes - Sclerae nonicteric. Conjunctivae clear, ENMT - No lesions noted in the oral cavity, Hematologic/Lymphatic - No cervical, clavicular, or axillary adenopathy, Respiratory - Lungs are clear with diminished air movement bilaterally, Cardiovascular - Heart rhythm is regular. There is a II/ systolic murmur. There is no gallop or rub noted, Abdomen - Soft. Liver and spleen are not enlarged. There is no abdominal mass or ascites noted and there is no inguinal adenopathy, Extremities - No edema, Neurologic - No focal neurologic deficits noted. Lab/Imaging: Test performed on May 02, 2021 09:25 Ferritin 97 ng/mL Iron 28 mcg/dL Sodium 137 mmol/L Vitamin B12 429 pg/mL Iron Binding Capacity (TIBC) 209 mcg/dl Potassium 4.3 mmol/L % Iron Saturation 13.3 % Chloride 104 mmol/L CO2 25 mmol/L UIBC 181 mcg/dL Anion Gap 12.3 BUN 7 mg/dL Creatinine 0.7 mg/dL Cr Clearance (Est) 66.8000 mL/min eGFR 84.5 mL/min Glucose 94 mg/dL Osmolality - Calculated 282 mOsm/kg Calcium 8.7 mg/dL Protein, Total 6.7 g/dL Albumin 3.8 g/dL Globulin 2.9 g/dL Bilirubin, Total 0.2 mg/dL ALT (SGPT) 12 U/L AST (SGOT) 19 U/L Alkaline Phosphatase 169 IU/L WBC 5.3 10 3/uL RBC 2.91 10 6/uL HGB 8.7 g/dL HCT 28.4 % MCV 97.6 fl MCH 29.9 pg MCHC 30.6 g/dL RDW 14.4 % Platelet Count 446 10 3/cmm MPV 10.6 fL Neutrophils 3.83 10 3/uL Lymphocytes 1.1 10 3/uL Monocytes 0.2 10 3/uL Eosinophils 0.1 10 3/uL Basophils 0.0 10 3/uL Neutrophil % 72.3 % Lymphocyte % 20.8 % Monocyte % 4.2 % Eosinophil % 1.5 % Basophils % 0.6 % NRBC % 0 % Problem List: 1. Recurrent iron deficiency anemia since 2012. Her previous GI evaluation with upper and lower endoscopy had shown evidence of gastritis, which was the presumed cause for the iron deficiency. 2. Her colonoscopy procedure in 2012 was complicated by a subcapsular splenic hematoma. It was able to be managed conservatively, but the hematoma did result in a significant drop in her hemoglobin level, and she did require admission to the hospital for transfusion. She subsequently developed acute transfusion related lung injury, but she did have a good recovery. 3. During subsequent follow-up she has had recurrent episodes of iron deficiency anemia, presumed to be due to GI blood loss. She has required transfusion and parenteral iron replacement on multiple occasions. 4. In March 2020 she underwent enteroscopy/APC for multiple small intestine AVMs. 5. GERD. 6. Degenerative arthritis/fibromyalgia with chronic pain. 7. Anxiety/depression. 8. She has nicotine dependence (cigarettes). Problems Addressed with this Encounter and Plan: 1. Patient with recurrent iron deficiency anemia since 2012. Her previous GI evaluation with upper and lower endoscopy had shown evidence of gastritis, which was the presumed cause for the iron deficiency. During subsequent follow-up she has had recurrent episodes of iron deficiency anemia, presumed to be due to GI blood loss. She has required transfusion and parenteral iron replacement on multiple occasions, and in March 2020 she underwent enteroscopy/APC for multiple small intestine AVMs. In August 2020 she presented with a severe decline in her hemoglobin to 5.7 g. She was transfused PRBC. Her serum iron studies at that point were consistent with iron deficiency, and she also was given parenteral iron replacement with 2 additional infusions of Injectafer. Her stool IFOB was negative. During follow-up she remained moderately anemic, though above transfusion threshold. I was not able to determine any cause for it other than the blood loss/iron deficiency. She required PRBC transfusion again in November and as of yesterday her hemoglobin was back down to 7.1 g with transferrin saturation low at 4.6%, consistent with iron deficiency. She was transfused 2 units PRBC, and she was given 2 additional infusions of Injectafer. Her hemoglobin had subsequently increased to 11 g, but thereafter it continued to show gradual decline. As of 05/02/2021 her hemoglobin was back down to 8.7 g with serum iron studies showing transferrin saturation 13%, again consistent with iron deficiency. With those findings, she will be given 2 more infusions of Injectafer, but that will be subject to verification of insurance coverage. She will then have blood counts rechecked every 2 weeks. I will see her again in 3 months, or sooner as needed. 2. She has degenerative arthritis/fibromyalgia with chronic pain. It is managed adequately with hydrocodone/APAP, which she is just taking as needed. Signed By: Harshal Valero M.D. <<Signature on File>>
[2021-05-11] MEDS: ferric carboxy (IVPB) 750 MG in sodium chloride 0.9% (100 ml) 100 ML 460 MG IV (08:30)
== END 2021-05-12 23:59 | disposition home or self-care (01) ==
LOC: ONCMED 06:29
PROVIDERS: Nurse Practitioner; PCP Nurse Practitioner Family; Visit Provider Internal Medicine Medical Oncology
DX: D50.9 Iron deficiency anemia, unspecified (principal); K21.9 Gastro-esophageal reflux disease without esophagitis; M79.7 Fibromyalgia; F41.9 Anxiety disorder, unspecified; F32.9 Major depressive disorder, single episode, unspecified; F17.210 Nicotine dependence, cigarettes, uncomplicated; Z79.899 Other long term (current) drug therapy
CPT/HCPCS: 36415; 80053; 82607; 82728; 83540; 83550; 85025; 96365; 99214; J1439

== ENCOUNTER 2021-05-31 08:28 | Outpatient (RCR) | payer MEDICARE, SELFPAY ==
[2021-05-18] MEDS: ferric carboxy (IVPB) 750 MG in sodium chloride 0.9% (100 ml) 100 ML 460 MG IV (09:00)
[2021-05-18 09:24] LABS: Basophils % 0.4 %; Eosinophils # 0.1 10^3/uL (0.0-0.8); Eosinophils % 2.1 %; Hematocrit 23.2 % (37.0-47.0); Hemoglobin 6.9 g/dL (11.5-15.3); Lymphocytes # 1.2 10^3/uL (0.8-4.8); Lymphocytes % 18.3 %; Mean Corpuscular HGB Conc 29.7 g/dL (30.0-36.0); Mean Corpuscular Hemoglobin 31.8 pg (28.0-34.0); Mean Corpuscular Volume 106.9 fl (81-99); Mean Platelet Volume 10.6 fL (7.4-10.4); Monocytes # 0.3 10^3/uL (0.2-0.9); Monocytes % 4.6 %; Neutrophils # 4.98 10^3/uL (1.8-7.7); Neutrophils % 73.4 %; Nucleated Red Blood Cells % 0 %; Platelet Count 451 10^3/cmm (130-400); Red Blood Count 2.17 10^6/uL (4.1-5.3); Red Cell Distribution Width 19.5 % (12.1-15.1); White Blood Count 6.8 10^3/uL (4.0-10.0)
[2021-05-19] VITALS (10 sets, daily range): BP systolic 117–160; BP diastolic 61–76; PULSE 68–77; RESP 18; TEMP 35.9–36.6; O2SAT 96–99
[2021-05-19 09:06] LABS: Basophils % 0.4 %; Eosinophils # 0.1 10^3/uL (0.0-0.8); Lymphocytes # 0.9 10^3/uL (0.8-4.8); Lymphocytes % 13.5 %; Mean Corpuscular HGB Conc 29.2 g/dL (30.0-36.0); Mean Corpuscular Hemoglobin 31.3 pg (28.0-34.0); Mean Corpuscular Volume 107.1 fl (81-99); Mean Platelet Volume 10.8 fL (7.4-10.4); Monocytes # 0.3 10^3/uL (0.2-0.9); Monocytes % 4.5 %; Neutrophils # 5.22 10^3/uL (1.8-7.7); Neutrophils % 75.7 %; Nucleated Red Blood Cells # 0.1 /100WBC; Nucleated Red Blood Cells % 0.7 %; Platelet Count 463 10^3/cmm (130-400); Red Blood Count 2.24 10^6/uL (4.1-5.3); Red Cell Distribution Width 19.8 % (12.1-15.1); White Blood Count 6.9 10^3/uL (4.0-10.0)
[2021-05-19] MEDS: acetaminophen 325 mg Tablet 650 MG PO (10:00)
[2021-05-19] MEDS: sodium chloride 0.9% 250 ML 999 ML IV (10:00)
[2021-05-19] MEDS: diphenhydrAMINE 25 mg Capsule PO (10:00)
[2021-05-31 09:26] LABS: Basophils % 0.6 %; Eosinophils # 0.1 10^3/uL (0.0-0.8); Hematocrit 34.3 % (37.0-47.0); Hemoglobin 10.9 g/dL (11.5-15.3); Lymphocytes # 1.2 10^3/uL (0.8-4.8); Lymphocytes % 18.9 %; Mean Corpuscular HGB Conc 31.8 g/dL (30.0-36.0); Mean Corpuscular Hemoglobin 32.5 pg (28.0-34.0); Mean Corpuscular Volume 102.4 fl (81-99); Mean Platelet Volume 10.9 fL (7.4-10.4); Monocytes # 0.4 10^3/uL (0.2-0.9); Monocytes % 5.8 %; Neutrophils # 4.68 10^3/uL (1.8-7.7); Neutrophils % 72.1 %; Nucleated Red Blood Cells % 0 %; Platelet Count 372 10^3/cmm (130-400); Red Blood Count 3.35 10^6/uL (4.1-5.3); Red Cell Distribution Width 17.3 % (12.1-15.1); White Blood Count 6.5 10^3/uL (4.0-10.0)
== END 2021-06-12 23:59 | disposition home or self-care (01) ==
LOC: ONCMED 08:28
PROVIDERS: PCP Nurse Practitioner Family; Visit Provider Internal Medicine Medical Oncology
DX: D50.0 Iron deficiency anemia secondary to blood loss (chronic) (principal)
CPT/HCPCS: 36415; 36430; 85025; 86850; 86900; 86920; 96365; J1439; J7050; P9016; P9040

== ENCOUNTER 2021-06-28 06:25 | Outpatient (RCR) | payer MEDICARE, SELFPAY ==
[2021-06-14 09:12] LABS: Basophils % 0.5 %; Eosinophils # 0.2 10^3/uL (0.0-0.8); Hematocrit 29.3 % (37.0-47.0); Hemoglobin 8.9 g/dL (11.5-15.3); Lymphocytes # 1.3 10^3/uL (0.8-4.8); Lymphocytes % 16.1 %; Mean Corpuscular HGB Conc 30.4 g/dL (30.0-36.0); Mean Corpuscular Volume 105.4 fl (81-99); Mean Platelet Volume 10.9 fL (7.4-10.4); Monocytes # 0.4 10^3/uL (0.2-0.9); Monocytes % 5.3 %; Neutrophils # 5.97 10^3/uL (1.8-7.7); Neutrophils % 75.7 %; Nucleated Red Blood Cells % 0 %; Platelet Count 433 10^3/cmm (130-400); Red Blood Count 2.78 10^6/uL (4.1-5.3); Red Cell Distribution Width 17.5 % (12.1-15.1); White Blood Count 7.9 10^3/uL (4.0-10.0)
[2021-06-28 09:42] LABS: Basophils % 0.5 %; Eosinophils # 0.2 10^3/uL (0.0-0.8); Eosinophils % 1.9 %; Hematocrit 30.4 % (37.0-47.0); Hemoglobin 9.4 g/dL (11.5-15.3); Lymphocytes # 1.2 10^3/uL (0.8-4.8); Lymphocytes % 13.4 %; Mean Corpuscular HGB Conc 30.9 g/dL (30.0-36.0); Mean Corpuscular Hemoglobin 31.5 pg (28.0-34.0); Mean Platelet Volume 10.4 fL (7.4-10.4); Monocytes # 0.4 10^3/uL (0.2-0.9); Monocytes % 4.5 %; Neutrophils # 7.03 10^3/uL (1.8-7.7); Neutrophils % 79.4 %; Nucleated Red Blood Cells % 0 %; Platelet Count 466 10^3/cmm (130-400); Red Blood Count 2.98 10^6/uL (4.1-5.3); Red Cell Distribution Width 15.4 % (12.1-15.1); White Blood Count 8.9 10^3/uL (4.0-10.0)
== END 2021-07-12 23:59 | disposition home or self-care (01) ==
LOC: ONCMED 06:25
PROVIDERS: PCP Nurse Practitioner Family; Visit Provider Internal Medicine Medical Oncology
DX: D50.9 Iron deficiency anemia, unspecified (principal)
CPT/HCPCS: 36415; 85025

== ENCOUNTER 2021-08-11 06:18 | Outpatient (RCR) | payer MEDICARE, SELFPAY ==
[2021-07-26 10:02] LABS: Basophils % 0.7 %; Eosinophils # 0.2 10^3/uL (0.0-0.8); Eosinophils % 2.5 %; Hematocrit 28.4 % (37.0-47.0); Hemoglobin 8.8 g/dL (11.5-15.3); Lymphocytes # 1.3 10^3/uL (0.8-4.8); Lymphocytes % 22.3 %; Mean Corpuscular Hemoglobin 29.7 pg (28.0-34.0); Mean Corpuscular Volume 95.9 fl (81-99); Mean Platelet Volume 10.5 fL (7.4-10.4); Monocytes # 0.3 10^3/uL (0.2-0.9); Monocytes % 5.2 %; Neutrophils # 4.08 10^3/uL (1.8-7.7); Neutrophils % 69.1 %; Nucleated Red Blood Cells % 0 %; Platelet Count 519 10^3/cmm (130-400); Red Blood Count 2.96 10^6/uL (4.1-5.3); Red Cell Distribution Width 15.2 % (12.1-15.1); White Blood Count 5.9 10^3/uL (4.0-10.0)
[2021-08-03 15:04] LABS: Basophils % 0.6 %; Eosinophils # 0.1 10^3/uL (0.0-0.8); Eosinophils % 0.8 %; Hematocrit 27.6 % (37.0-47.0); Hemoglobin 8.4 g/dL (11.5-15.3); Lymphocytes # 1.5 10^3/uL (0.8-4.8); Lymphocytes % 22.5 %; Mean Corpuscular HGB Conc 30.4 g/dL (30.0-36.0); Mean Corpuscular Hemoglobin 28.8 pg (28.0-34.0); Mean Corpuscular Volume 94.5 fl (81-99); Mean Platelet Volume 10.2 fL (7.4-10.4); Monocytes # 0.5 10^3/uL (0.2-0.9); Monocytes % 7.1 %; Neutrophils # 4.49 10^3/uL (1.8-7.7); Neutrophils % 68.8 %; Nucleated Red Blood Cells % 0 %; Platelet Count 471 10^3/cmm (130-400); Red Blood Count 2.92 10^6/uL (4.1-5.3); Red Cell Distribution Width 15.3 % (12.1-15.1); White Blood Count 6.5 10^3/uL (4.0-10.0)
[2021-08-03 15:14] LABS: Ferritin 88 ng/mL (15-150); Iron 14 ug/dL (37-145); Percent Saturation 6.7 % (20-50); Total Iron Binding Capacity 206 mcg/dl; Unsaturated Iron Binding 192 ug/dL (112-347)
[2021-08-04] MEDS: ferric carboxy (IVPB) 750 MG in sodium chloride 0.9% (100 ml) 100 ML 460 MG IV (12:20)
[2021-08-11] MEDS: ferric carboxy (IVPB) 750 MG in sodium chloride 0.9% (100 ml) 100 ML 460 MG IV (12:10)
[2021-08-11 12:16] LABS: Basophils # 0.1 10^3/uL (0.0-0.1); Basophils % 0.6 %; Eosinophils # 0.1 10^3/uL (0.0-0.8); Eosinophils % 1.5 %; Hemoglobin 9.5 g/dL (11.5-15.3); Lymphocytes # 1.5 10^3/uL (0.8-4.8); Mean Corpuscular HGB Conc 30.6 g/dL (30.0-36.0); Mean Corpuscular Hemoglobin 29.6 pg (28.0-34.0); Mean Corpuscular Volume 96.6 fl (81-99); Mean Platelet Volume 10.4 fL (7.4-10.4); Monocytes # 0.3 10^3/uL (0.2-0.9); Monocytes % 4.1 %; Neutrophils # 6.03 10^3/uL (1.8-7.7); Neutrophils % 75.1 %; Nucleated Red Blood Cells % 0 %; Platelet Count 524 10^3/cmm (130-400); Red Blood Count 3.21 10^6/uL (4.1-5.3); Red Cell Distribution Width 17.2 % (12.1-15.1)
== END 2021-08-12 23:59 | disposition home or self-care (01) ==
LOC: ONCMED 06:18
PROVIDERS: PCP Nurse Practitioner Family; Visit Provider Internal Medicine Medical Oncology
DX: D50.9 Iron deficiency anemia, unspecified (principal)
CPT/HCPCS: 36415; 82728; 83540; 83550; 85025; 96365; J1439

== ENCOUNTER 2021-09-14 08:39 | Outpatient (RCR) | payer MEDICARE, SELFPAY ==
[2021-09-14 09:15] LABS: Basophils # 0.1 10^3/uL (0.0-0.1); Basophils % 0.9 %; Eosinophils # 0.1 10^3/uL (0.0-0.8); Eosinophils % 1.2 %; Lymphocytes # 1.2 10^3/uL (0.8-4.8); Lymphocytes % 19.2 %; Mean Corpuscular HGB Conc 30.3 g/dL (30.0-36.0); Mean Corpuscular Hemoglobin 30.4 pg (28.0-34.0); Mean Corpuscular Volume 100.3 fl (81-99); Mean Platelet Volume 10.2 fL (7.4-10.4); Monocytes # 0.3 10^3/uL (0.2-0.9); Monocytes % 4.1 %; Neutrophils # 4.73 10^3/uL (1.8-7.7); Neutrophils % 73.8 %; Nucleated Red Blood Cells % 0 %; Platelet Count 454 10^3/cmm (130-400); Red Blood Count 3.29 10^6/uL (4.1-5.3); Red Cell Distribution Width 16.6 % (12.1-15.1); White Blood Count 6.4 10^3/uL (4.0-10.0)
== END 2021-10-10 23:59 | disposition home or self-care (01) ==
LOC: ONCMED 08:39
PROVIDERS: PCP Nurse Practitioner Family; Visit Provider Internal Medicine Medical Oncology
DX: D50.9 Iron deficiency anemia, unspecified (principal)
CPT/HCPCS: 36415; 85025

== ENCOUNTER 2021-11-10 11:12 | Outpatient (RCR) | payer MEDICARE, SELFPAY ==
[2021-10-26 15:14] LABS: Basophils % 0.6 %; Eosinophils # 0.1 10^3/uL (0.0-0.8); Eosinophils % 1.1 %; Hematocrit 28.9 % (37.0-47.0); Hemoglobin 8.8 g/dL (11.5-15.3); Lymphocytes % 30.8 %; Mean Corpuscular HGB Conc 30.4 g/dL (30.0-36.0); Mean Corpuscular Hemoglobin 29.6 pg (28.0-34.0); Mean Corpuscular Volume 97.3 fl (81-99); Mean Platelet Volume 10.6 fL (7.4-10.4); Monocytes # 0.3 10^3/uL (0.2-0.9); Monocytes % 4.4 %; Neutrophils # 4.09 10^3/uL (1.8-7.7); Neutrophils % 62.8 %; Nucleated Red Blood Cells % 0 %; Platelet Count 522 10^3/cmm (130-400); Red Blood Count 2.97 10^6/uL (4.1-5.3); Red Cell Distribution Width 15.7 % (12.1-15.1); White Blood Count 6.5 10^3/uL (4.0-10.0)
[2021-11-09 13:45] LABS: Basophils % 0.5 %; Eosinophils % 0.2 %; Hematocrit 25.5 % (37.0-47.0); Hemoglobin 7.7 g/dL (11.5-15.3); Lymphocytes # 1.1 10^3/uL (0.8-4.8); Lymphocytes % 17.7 %; Mean Corpuscular HGB Conc 30.2 g/dL (30.0-36.0); Mean Corpuscular Hemoglobin 28.4 pg (28.0-34.0); Mean Corpuscular Volume 94.1 fl (81-99); Mean Platelet Volume 10.1 fL (7.4-10.4); Monocytes # 0.5 10^3/uL (0.2-0.9); Monocytes % 7.3 %; Neutrophils # 4.69 10^3/uL (1.8-7.7); Nucleated Red Blood Cells % 0 %; Platelet Count 414 10^3/cmm (130-400); Red Blood Count 2.71 10^6/uL (4.1-5.3); Red Cell Distribution Width 15.8 % (12.1-15.1); White Blood Count 6.3 10^3/uL (4.0-10.0)
[2021-11-09 14:11] LABS: Ferritin 115 ng/mL (15-150); Iron 17 ug/dL (37-145); Percent Saturation 7.3 % (20-50); Total Iron Binding Capacity 232 mcg/dl; Unsaturated Iron Binding 215 ug/dL (112-347)
[2021-11-10] VITALS (10 sets, daily range): BP systolic 123–157; BP diastolic 57–71; PULSE 70–83; RESP 18; TEMP 36.2–37.2; O2SAT 97–99
[2021-11-10] MEDS: diphenhydrAMINE 25 mg Capsule PO (12:33)
[2021-11-10] MEDS: sodium chloride 0.9% 250 ML 999 ML IV (12:33)
[2021-11-10] MEDS: acetaminophen 325 mg Tablet 650 MG PO (12:33)
[2021-11-10] MEDS: FUROsemide 10 mg/mL SDV 2mL 20 MG IV (14:20)
[2021-11-10] MEDS: ferric carboxy (IVPB) 750 MG in sodium chloride 0.9% (100 ml) 100 ML 460 MG IV (16:01)
== END 2021-11-10 23:59 | disposition home or self-care (01) ==
LOC: ONCMED 11:12
PROVIDERS: PCP Nurse Practitioner Family; Visit Provider Internal Medicine Medical Oncology
DX: D50.9 Iron deficiency anemia, unspecified (principal); Z79.899 Other long term (current) drug therapy
CPT/HCPCS: 36415; 36430; 82728; 83540; 83550; 85025; 86850; 86900; 86920; 96365; 96374; J1439; J1940; J7050; P9016

== ENCOUNTER 2021-12-05 07:04 | Outpatient (RCR) | payer MEDICARE, SELFPAY ==
[2021-11-17] MEDS: ferric carboxy (IVPB) 750 MG in sodium chloride 0.9% (100 ml) 100 ML 345 MG IV (09:30)
[2021-11-24 15:07] LABS: Basophils % 0.4 %; Eosinophils % 0.4 %; Hematocrit 33.6 % (37.0-47.0); Hemoglobin 10.5 g/dL (11.5-15.3); Lymphocytes # 1.8 10^3/uL (0.8-4.8); Lymphocytes % 17.1 %; Mean Corpuscular HGB Conc 31.3 g/dL (30.0-36.0); Mean Corpuscular Hemoglobin 29.2 pg (28.0-34.0); Mean Corpuscular Volume 93.6 fl (81-99); Mean Platelet Volume 10.2 fL (7.4-10.4); Monocytes # 0.6 10^3/uL (0.2-0.9); Monocytes % 5.1 %; Neutrophils # 8.12 10^3/uL (1.8-7.7); Nucleated Red Blood Cells % 0 %; Platelet Count 645 10^3/cmm (130-400); Red Blood Count 3.59 10^6/uL (4.1-5.3); Red Cell Distribution Width 15.8 % (12.1-15.1); White Blood Count 10.7 10^3/uL (4.0-10.0)
[2021-12-05 08:50] LABS: Basophils # 0.1 10^3/uL (0.0-0.1); Basophils % 0.7 %; Eosinophils # 0.1 10^3/uL (0.0-0.8); Eosinophils % 1.3 %; Hematocrit 31.5 % (37.0-47.0); Hemoglobin 9.8 g/dL (11.5-15.3); Lymphocytes # 1.4 10^3/uL (0.8-4.8); Lymphocytes % 16.2 %; Mean Corpuscular HGB Conc 31.1 g/dL (30.0-36.0); Mean Corpuscular Hemoglobin 29.6 pg (28.0-34.0); Mean Corpuscular Volume 95.2 fl (81-99); Mean Platelet Volume 10.7 fL (7.4-10.4); Monocytes # 0.4 10^3/uL (0.2-0.9); Monocytes % 4.3 %; Neutrophils # 6.73 10^3/uL (1.8-7.7); Neutrophils % 76.8 %; Nucleated Red Blood Cells % 0 %; Platelet Count 338 10^3/cmm (130-400); Red Blood Count 3.31 10^6/uL (4.1-5.3); Red Cell Distribution Width 17.9 % (12.1-15.1); White Blood Count 8.8 10^3/uL (4.0-10.0)
[2021-12-05 09:09] LABS: Ferritin 972 ng/mL (15-150); Iron 78 ug/dL (37-145); Total Iron Binding Capacity 150 mcg/dl; Unsaturated Iron Binding 72 ug/dL (112-347)
--- NOTE | 2021-12-06 08:17 | ONC FU_ITS ---
Dr. Valero Patient Follow-Up Note Patient: Emma Porras Unit #: [id number]: 1955 Dicatated By: Harshal Valero M.D.Date of Visit:Dec 05, 2021 Onc Med Follow-up/Prog Note Chief Complaint: Anemia. History of Present Illness: This is a 66 year-old woman with persistent/recurrent anemia. Her laboratory studies from November 2012 showed a hypochromic/microcytic anemia with transferrin saturation 3% and ferritin low at 2.5 ng/mL. By the time I had seen her in January the hemoglobin was down to 7.4 g. She was given parenteral iron replacement with Venofer, which she completed in February 2013. As of July 2013 her hemoglobin was up to 12.8 g. She underwent upper and lower GI endoscopy in November. The upper endoscopy did show evidence of gastritis, which was the presumed cause for the iron deficiency. There were no significant abnormalities noted on the colonoscopy. She did complain of generalized abdominal pain following the procedure, which continued to worsen gradually after she returned home. On evaluation in the emergency room she was found to have a subcapsular splenic hematoma. Her hemoglobin dropped to 6.0 g, at which point she was admitted to the hospital for transfusion. The hematoma stabilized, and she was able to be managed conservatively. Her clinical course, though, was complicated by transfusion associated lung injury, but she did recover uneventfully. During subsequent followup she had remained moderately anemic, and she had persistently elevated sedimentation rate and CRP level. She was treated again with Venofer in June 2014 after her hemoglobin had dropped back down to 8.4 g. With that course of treatment she received a total of 1400 mg, but a followup CBC in September 2014 showed that she was still moderately anemic with a hemoglobin of 9.8 g. At that point she was started back on Venofer infusions, and she then completed an additional 1200 mg total dosage. On a followup visit in November her hemoglobin was adequate at 11.6 g, but the transferrin saturation was back down to 5%, and at that time I did restart Venofer. As of 01/01/2015 she had completed another course of treatment to a total dose of 1000 mg. Following her course of parenteral iron replacement in December 2014 she underwent further GI evaluation in [place]. She was found on capsule endoscopy to have an actively bleeding AVM in the small intestine. On 04/07/2015 she underwent double-balloon enteroscopy with APC by Dr. Royer West. At that time she was confirmed to have multiple AVMs throughout the small intestine. According to the procedure note, APC was applied to a total of 8 AVMs. She tolerated the procedure well. During subsequent follow-up she had continued to require parenteral iron replacement on a fairly regular basis. This included 2 infusions of Injectafer during the remainder of 2014, a total of 4 infusions of Injectafer during 2015, 6 infusions during 2016, and 4 infusions during 2017. She received a total of 8 infusions during 2018. At her follow-up visit on 07/03/2019 her hemoglobin had dropped to 7.7 g. The red cell indices were macrocytic with MCV 104 and MCH 31. Her transferrin saturation was normal at 34% and a ferritin was normal at 358 ng/mL. She was transfused 2 units PRBC. Her stool was retested and was negative for occult blood by IFOB. As of 08/27/2019 the hemoglobin was back down to 8.8 g. Her serum iron studies at that point showed low transferrin saturation at 11.5%, and with that finding, I did opt to give her another infusion of Injectafer. On 10/02/2019 she underwent bone marrow aspiration/biopsy. The cellularity was normal, ranging from 30 to 60%. Megakaryocytes were noted to be mildly increased. There was no evidence of an infiltrative process. There were no overt dysplastic changes. Iron stores were adequate with no ring sideroblasts identified. During follow-up she remained significantly anemic. She required PRBC transfusions again in November and in December. On 03/09/2020 her hemoglobin had dropped back down to 7.3 g, and she was given another 2 units PRBC. During that time she also was scheduled for further GI evaluation with Dr. West in [place]. Her camera endoscopy reportedly showed multiple AVMs. Her other medical illnesses include fibromyalgia, degenerative arthritis, GERD, and anxiety/depression. Surgeries include hysterectomy/bilateral salpingo-oophorectomy in 1997, laparascopic cholecystectomy in 2007, and cystoscopy/anterior repair in January,. She underwent lumbar laminectomy in 2003 and cervical laminectomy/fusion in 2004. She also has had surgery on both elbows. She has a history of smoking up to 2 packs of cigarettes daily for 35 years. She has been trying to quit. Family history is significant for father having of pancreatic cancer at age 62 and mother having of lung cancer at age 76. A brother has hypertension and diabetes and a sister has heart disease. INTERIM HISTORY: During follow-up her hemoglobin had subsequently stabilized in the range of 10 to 11 g, but she then required transfusion again in June 2020. As of August 2020 there was a severe decline in her hemoglobin to 5.7 g, and she was again transfused PRBC. At that point her serum iron studies were again consistent with iron deficiency, and she was given 2 additional infusions of Injectafer. Her stool was heme negative. Her blood counts then stabilized again with hemoglobin in the range of 9 to 10 g, but in November she did require transfusion again when it dropped to 7.9 g. She was then transfused again in January with her hemoglobin back down to 7.1 g. Her serum iron studies at that time were consistent with iron deficiency with transferrin saturation 4.6%, and she did receive 2 additional infusions of Injectafer. Her hemoglobin had subsequently increased to 11 g. Thereafter it showed a continual though very gradual decline. As of 05/02/2021 her hemoglobin was back down to 8.7 g with serum iron studies showing transferrin saturation 13%, consistent with iron deficiency. She was then given 2 infusions of Injectafer and she received Injectafer again in July 2021. As of 11/09/2021 her hemoglobin is back down to 7.7 g and her transferrin saturation was low at 7.3%. She was transfused 2 units PRBC and she was given 2 infusions of Injectafer. She is seen for a follow-up visit. She says she had been getting really tired prior to the transfusion last month. Since then she has had better energy and activity tolerance. She is doing light work at home. ECOG score is 1. She says her appetite is not that good. Her weight is down about 5 pounds. She does not have fever. She occasionally has sweating at night. She has sinus drainage and she also has some cough. She says her breathing has been pretty good. She does not complain of chest pain. She has no GI/ complaints other than frequent urination. She has not been aware of blood in the stool or black stools. She has generalized hurting and aching. Her most significant pain recently has been in her right shoulder. She occasionally has headache, and she sometimes gets lightheaded. She has no focal neurologic symptoms. Medications: ALPRAZolam 1 Tablet (of 0.5 mg) Oral t.i.d. PRN, Ditropan XL 1 (10 mg) Tablet SR 24 HR Oral daily PRN, Estradiol 1 (1 mg) Tablet Oral daily, FLUoxetine HCl 3 Capsule (of 20 mg) Oral daily, HYDROcodone-Acetaminophen 1 Tablet (of 7.5-325 mg) Oral q 4 hours PRN, Montelukast Sodium 10 mg - Take 1 Tablet Oral daily, Protonix 1 (40 mg) Tablet, enteric coated Oral daily, Topiramate 25 mg - Take 1 Tablet Oral daily, Vitamin D3 2000 Units - Take 1 Tablet Oral daily Allergies: Codeine Phosphate and Penicillin G Benzathine. Vital Signs: Performed on Dec 05, 2021 11:27 Height - 57.00 in Weight - 100.6 lbs (LOW) BSA - 1.34 sq.m BMI - 21.77 Temperature - 98.3 F (LOW) Pulse - 76 /min Respiration - 16 /min BP - 121/51 mm(hg) O2 Sat - 98 % Pain - 0 Fatigue - 8 Physical Examination: Constitutional - She looks pretty good generally, Eyes - Sclerae nonicteric. Conjunctivae clear, ENMT - No lesions noted in the oral cavity, Hematologic/Lymphatic - No cervical, clavicular, or axillary adenopathy, Respiratory - Lungs are clear with diminished air movement bilaterally, Cardiovascular - Heart rhythm is regular with occasional premature beats. There is no murmur, gallop, or rub noted, Abdomen - Soft. Liver and spleen are not enlarged. There is no abdominal mass or ascites noted and there is no inguinal adenopathy, Extremities - No edema, Neurologic - No focal neurologic deficits noted. Lab/Imaging: Test performed on Dec 05, 2021 08:40 Ferritin 972 ng/mL Iron 78 mcg/dL Iron Binding Capacity (TIBC) 150 mcg/dl % Iron Saturation 52.0 % UIBC 72 mcg/dL WBC 8.8 10 3/uL RBC 3.31 10 6/uL HGB 9.8 g/dL HCT 31.5 % MCV 95.2 fl MCH 29.6 pg MCHC 31.1 g/dL RDW 17.9 % Platelet Count 338 10 3/cmm MPV 10.7 fL Neutrophils 6.73 10 3/uL Lymphocytes 1.4 10 3/uL Monocytes 0.4 10 3/uL Eosinophils 0.1 10 3/uL Basophils 0.1 10 3/uL Neutrophil % 76.8 % Lymphocyte % 16.2 % Monocyte % 4.3 % Eosinophil % 1.3 % Basophils % 0.7 % NRBC % 0 % Problem List: 1. Recurrent iron deficiency anemia since 2012. Her previous GI evaluation with upper and lower endoscopy had shown evidence of gastritis, which was the presumed cause for the iron deficiency. 2. Her colonoscopy procedure in 2012 was complicated by a subcapsular splenic hematoma. It was able to be managed conservatively, but the hematoma did result in a significant drop in her hemoglobin level, and she did require admission to the hospital for transfusion. She subsequently developed acute transfusion related lung injury, but she did have a good recovery. 3. During subsequent follow-up she has had recurrent episodes of iron deficiency anemia, presumed to be due to GI blood loss. She has required transfusion and parenteral iron replacement on multiple occasions. 4. In March 2020 she underwent enteroscopy/APC for multiple small intestine AVMs. 5. GERD. 6. Degenerative arthritis/fibromyalgia with chronic pain. 7. Anxiety/depression. 8. She has nicotine dependence (cigarettes). Problems Addressed with this Encounter and Plan: 1. Patient with recurrent iron deficiency anemia since 2012. Her previous GI evaluation with upper and lower endoscopy had shown evidence of gastritis, which was the presumed cause for the iron deficiency. During subsequent follow-up she has had recurrent episodes of iron deficiency anemia, presumed to be due to GI blood loss. She has required transfusion and parenteral iron replacement on multiple occasions, and in March 2020 she underwent enteroscopy/APC for multiple small intestine AVMs. In August 2020 she presented with a severe decline in her hemoglobin to 5.7 g. She was transfused PRBC. Her serum iron studies at that point were consistent with iron deficiency, and she also was given parenteral iron replacement with 2 additional infusions of Injectafer. Her stool IFOB was negative. During follow-up she remained moderately anemic. She has occasionally required PRBC transfusion and/or parenteral iron replacement, most recently in October 2021. Her current CBC shows adequate hemoglobin at 9.8 g. Her transferrin saturation and ferritin are actually a little elevated now. As such, she will be followed expectantly. Blood counts will be monitored every 2 weeks. I will tentatively plan a follow-up visit in 3 months. In the meantime, I also will have her bring in a stool sample for IFOB. 2. She has degenerative arthritis/fibromyalgia with chronic pain. It has been managed adequately with hydrocodone/APAP, taken as needed. Signed By: Harshal Valero M.D. <<Signature on File>>
== END 2021-12-10 23:59 | disposition home or self-care (01) ==
LOC: ONCMED 07:04
PROVIDERS: PCP Nurse Practitioner Family; Visit Provider Internal Medicine Medical Oncology
DX: D50.9 Iron deficiency anemia, unspecified (principal); K29.70 Gastritis, unspecified, without bleeding; M19.90 Unspecified osteoarthritis, unspecified site; M79.7 Fibromyalgia; Z79.891 Long term (current) use of opiate analgesic; Z79.899 Other long term (current) drug therapy
CPT/HCPCS: 36415; 82728; 83540; 83550; 85025; 96365; 99214; J1439

== ENCOUNTER 2022-03-06 09:00 | Oncology outpatient (recurring) (ONCR) | payer MEDICARE, SELFPAY ==
[2022-02-10 11:06] LABS: Basophils % 0.5 %; Eosinophils # 0.1 10^3/uL (0.0-0.8); Eosinophils % 1.2 %; Hematocrit 24.5 % (37.0-47.0); Hemoglobin 7.6 g/dL (11.5-15.3); Lymphocytes # 1.2 10^3/uL (0.8-4.8); Lymphocytes % 14.8 %; Mean Corpuscular Hemoglobin 29.2 pg (28.0-34.0); Mean Corpuscular Volume 94.2 fl (81-99); Mean Platelet Volume 10.6 fL (7.4-10.4); Monocytes # 0.3 10^3/uL (0.2-0.9); Monocytes % 3.5 %; Neutrophils # 6.57 10^3/uL (1.8-7.7); Neutrophils % 79.4 %; Nucleated Red Blood Cells % 0 %; Platelet Count 489 10^3/cmm (130-400); Red Cell Distribution Width 15.8 % (12.1-15.1); White Blood Count 8.3 10^3/uL (4.0-10.0)
[2022-02-16 10:33] LABS: Basophils # 0.1 10^3/uL (0.0-0.1); Basophils % 0.7 %; Eosinophils # 0.1 10^3/uL (0.0-0.8); Eosinophils % 1.6 %; Hemoglobin 7.8 g/dL (11.5-15.3); Lymphocytes # 1.7 10^3/uL (0.8-4.8); Lymphocytes % 19.6 %; Mean Corpuscular HGB Conc 31.2 g/dL (30.0-36.0); Mean Corpuscular Hemoglobin 28.9 pg (28.0-34.0); Mean Corpuscular Volume 92.6 fl (81-99); Mean Platelet Volume 10.7 fL (7.4-10.4); Monocytes # 0.4 10^3/uL (0.2-0.9); Monocytes % 4.3 %; Neutrophils # 6.35 10^3/uL (1.8-7.7); Neutrophils % 73.2 %; Nucleated Red Blood Cells % 0 %; Platelet Count 507 10^3/cmm (130-400); Red Cell Distribution Width 15.9 % (12.1-15.1); White Blood Count 8.7 10^3/uL (4.0-10.0)
[2022-02-16 11:03] LABS: Ferritin 67 ng/mL (15-150); Iron 26 ug/dL (37-145)
[2022-02-16 11:06] LABS: Percent Saturation 8.6 % (20-50); Total Iron Binding Capacity 300 mcg/dl; Unsaturated Iron Binding 274 ug/dL (112-347)
[2022-02-20] MEDS: sodium chloride 0.9% 250 ML 75 ML IV (11:12)
[2022-02-20] MEDS: ferric carboxy (IVPB) 750 MG in sodium chloride 0.9% (100 ml) 100 ML 345 MG IV (11:15)
[2022-02-27 10:16] VITALS: BP 136/83; PULSE 76; RESP 18; TEMP 36.7; O2SAT 100
[2022-02-27] MEDS: ferric carboxy (IVPB) 750 MG in sodium chloride 0.9% (100 ml) 100 ML 345 MG IV (10:22)
[2022-03-06 09:29] LABS: Basophils % 0.4 %; Eosinophils # 0.2 10^3/uL (0.0-0.8); Eosinophils % 2.1 %; Hematocrit 33.2 % (37.0-47.0); Hemoglobin 9.7 g/dL (11.5-15.3); Lymphocytes # 1.3 10^3/uL (0.8-4.8); Lymphocytes % 16.6 %; Mean Corpuscular HGB Conc 29.2 g/dL (30.0-36.0); Mean Corpuscular Hemoglobin 29.9 pg (28.0-34.0); Mean Corpuscular Volume 102.5 fl (81-99); Mean Platelet Volume 10.5 fL (7.4-10.4); Monocytes # 0.3 10^3/uL (0.2-0.9); Monocytes % 4.4 %; Neutrophils # 5.89 10^3/uL (1.8-7.7); Neutrophils % 75.6 %; Nucleated Red Blood Cells % 0 %; Platelet Count 387 10^3/cmm (130-400); Red Blood Count 3.24 10^6/uL (4.1-5.3); Red Cell Distribution Width 19.3 % (12.1-15.1); White Blood Count 7.8 10^3/uL (4.0-10.0)
[2022-03-06 09:50] LABS: Alanine Aminotransferase 11 U/L (0-33); Albumin Level 4.2 g/dL (3.5-5.2); Alkaline Phosphatase 152 IU/L (35-105); Anion Gap 13.3 (5-19); Aspartate Amino Transferase 18 U/L (0-32); Blood Urea Nitrogen 9 mg/dL (8-23); Calcium 8.3 mg/dL (8.5-10.5); Carbon Dioxide 26 mmol/L (22-29); Chloride 100 mmol/L (98-107); Globulin 2.7 g/dL (1.3-4.6); Glomerular Filtration Rate 55.8 mL/min (90-130); Glucose 99 mg/dL (65-115); Iron 58 ug/dL (37-145); Osmolality Calculated 279 mOsm/kg (285-295); Percent Saturation 25.6 % (20-50); Potassium 4.3 mmol/L (3.5-5.1); Sodium 135 mmol/L (136-145); Total Bilirubin 0.2 mg/dL (0.15-1.2); Total Iron Binding Capacity 226 mcg/dl; Total Protein 6.9 g/dL (6.6-8.7); Unsaturated Iron Binding 168 ug/dL (112-347)
[2022-03-06 10:23] LABS: Ferritin 1154 ng/mL (15-150)
== END 2022-03-12 23:59 | disposition home or self-care (01) ==
PROVIDERS: PCP Nurse Practitioner Family; Visit Provider Internal Medicine Medical Oncology
DX: D50.8 Other iron deficiency anemias (principal); G89.29 Other chronic pain; M19.90 Unspecified osteoarthritis, unspecified site; M79.7 Fibromyalgia
CPT/HCPCS: 36415; 80053; 82728; 83540; 83550; 85025; 86850; 86900; 96365; 99214; J1439; J7050

== ENCOUNTER 2022-04-11 09:30 | Oncology outpatient (recurring) (ONCR) | payer MEDICARE, SELFPAY ==
[2022-03-28 14:57] LABS: Basophils % 0.1 %; Eosinophils # 0.2 10^3/uL (0.0-0.8); Eosinophils % 1.9 %; Hematocrit 31.7 % (37.0-47.0); Lymphocytes # 1.5 10^3/uL (0.8-4.8); Lymphocytes % 17.6 %; Mean Corpuscular HGB Conc 31.5 g/dL (30.0-36.0); Mean Corpuscular Hemoglobin 31.4 pg (28.0-34.0); Mean Corpuscular Volume 99.7 fl (81-99); Mean Platelet Volume 10.2 fL (7.4-10.4); Monocytes # 0.4 10^3/uL (0.2-0.9); Monocytes % 4.4 %; Neutrophils # 6.36 10^3/uL (1.8-7.7); Neutrophils % 75.5 %; Nucleated Red Blood Cells % 0 %; Platelet Count 377 10^3/cmm (130-400); Red Blood Count 3.18 10^6/uL (4.1-5.3); Red Cell Distribution Width 16.2 % (12.1-15.1); White Blood Count 8.4 10^3/uL (4.0-10.0)
[2022-03-28 15:26] LABS: Ferritin 341 ng/mL (15-150); Iron 42 ug/dL (37-145); Percent Saturation 18.5 % (20-50); Total Iron Binding Capacity 226 mcg/dl; Unsaturated Iron Binding 184 ug/dL (112-347)
== END 2022-04-12 23:59 | disposition home or self-care (01) ==
PROVIDERS: Nurse Practitioner Family; PCP Nurse Practitioner Family; Visit Provider Internal Medicine Medical Oncology
DX: D50.9 Iron deficiency anemia, unspecified
CPT/HCPCS: 36415; 82274; 82728; 83540; 83550; 85025; 99214

== ENCOUNTER 2022-05-09 12:00 | Oncology outpatient (recurring) (ONCR) | payer MEDICARE, SELFPAY ==
[2022-04-25 10:18] LABS: Eosinophils % 0.4 %; Hematocrit 28.1 % (37.0-47.0); Hemoglobin 8.5 g/dL (11.5-15.3); Lymphocytes # 1.5 10^3/uL (0.8-4.8); Lymphocytes % 27.3 %; Mean Corpuscular HGB Conc 30.2 g/dL (30.0-36.0); Mean Corpuscular Volume 99.3 fl (81-99); Mean Platelet Volume 11.3 fL (7.4-10.4); Monocytes # 0.3 10^3/uL (0.2-0.9); Monocytes % 4.7 %; Neutrophils # 3.57 10^3/uL (1.8-7.7); Neutrophils % 66.9 %; Nucleated Red Blood Cells % 0 %; Platelet Count 322 10^3/cmm (130-400); Red Blood Count 2.83 10^6/uL (4.1-5.3); Red Cell Distribution Width 15.5 % (12.1-15.1); White Blood Count 5.3 10^3/uL (4.0-10.0)
[2022-04-25 10:46] LABS: Alanine Aminotransferase 19 U/L (0-33); Albumin Level 4.1 g/dL (3.5-5.2); Alkaline Phosphatase 153 U/L (35-105); Anion Gap 10.8 (5-19); Aspartate Amino Transferase 32 U/L (0-32); Blood Urea Nitrogen 13 mg/dL (8-23); Carbon Dioxide 28 mmol/L (22-29); Chloride 100 mmol/L (98-107); Ferritin 509 ng/mL (15-150); Glomerular Filtration Rate 55.8 mL/min (90-130); Glucose 95 mg/dL (65-115); Iron 45 ug/dL (37-145); Osmolality Calculated 278 mOsm/kg (285-295); Percent Saturation 18.5 % (20-50); Potassium 4.8 mmol/L (3.5-5.1); Sodium 134 mmol/L (136-145); Total Bilirubin 0.2 mg/dL (0.15-1.2); Total Iron Binding Capacity 242 mcg/dl; Total Protein 7.1 g/dL (6.6-8.7); Unsaturated Iron Binding 197 ug/dL (112-347)
[2022-05-09 12:08] LABS: Basophils % 0.1 %; Eosinophils % 0.2 %; Hematocrit 27.6 % (37.0-47.0); Hemoglobin 8.2 g/dL (11.5-15.3); Lymphocytes # 1.2 10^3/uL (0.8-4.8); Mean Corpuscular HGB Conc 29.7 g/dL (30.0-36.0); Mean Corpuscular Hemoglobin 29.5 pg (28.0-34.0); Mean Corpuscular Volume 99.3 fl (81-99); Mean Platelet Volume 10.6 fL (7.4-10.4); Monocytes # 0.4 10^3/uL (0.2-0.9); Monocytes % 3.7 %; Neutrophils # 9.03 10^3/uL (1.8-7.7); Neutrophils % 84.5 %; Nucleated Red Blood Cells % 0 %; Platelet Count 498 10^3/cmm (130-400); Red Blood Count 2.78 10^6/uL (4.1-5.3); Red Cell Distribution Width 16.5 % (12.1-15.1); White Blood Count 10.7 10^3/uL (4.0-10.0)
[2022-05-09 12:32] LABS: Iron 22 ug/dL (37-145); Percent Saturation 8.7 % (20-50); Total Iron Binding Capacity 251 mcg/dl; Unsaturated Iron Binding 229 ug/dL (112-347)
[2022-05-09] MEDS: ferric carboxy (IVPB) 750 MG in sodium chloride 0.9% (100 ml) 100 ML 345 MG IV (14:01)
[2022-05-09] MEDS: sodium chloride 0.9% 250 ML 75 ML IV (14:01)
[2022-05-09 14:15] VITALS: BP 147/70; PULSE 88; RESP 18; TEMP 36.6; O2SAT 98
== END 2022-05-12 23:59 | disposition home or self-care (01) ==
PROVIDERS: Nurse Practitioner; PCP Nurse Practitioner Family; Visit Provider Internal Medicine Medical Oncology
DX: D50.9 Iron deficiency anemia, unspecified (principal); M19.90 Unspecified osteoarthritis, unspecified site; G89.29 Other chronic pain; F17.210 Nicotine dependence, cigarettes, uncomplicated; Z79.891 Long term (current) use of opiate analgesic; Z79.899 Other long term (current) drug therapy
CPT/HCPCS: 36415; 80053; 82728; 83540; 83550; 85025; 86850; 86900; 96365; 99214; J1439; J7050

== ENCOUNTER 2022-05-16 09:47 | Oncology outpatient (recurring) (ONCR) | payer MEDICARE, SELFPAY ==
[2022-05-16 10:45] VITALS: BP 148/78; PULSE 84; RESP 18; TEMP 36.6; O2SAT 96
[2022-05-16] MEDS: ferric carboxy (IVPB) 750 MG in sodium chloride 0.9% (100 ml) 100 ML 345 MG IV (10:55)
[2022-05-16 11:24] LABS: Basophils % 0.2 %; Eosinophils # 0.1 10^3/uL (0.0-0.8); Hematocrit 31.2 % (37.0-47.0); Hemoglobin 9.5 g/dL (11.5-15.3); Lymphocytes # 1.5 10^3/uL (0.8-4.8); Mean Corpuscular HGB Conc 30.4 g/dL (30.0-36.0); Mean Corpuscular Hemoglobin 30.2 pg (28.0-34.0); Mean Platelet Volume 10.4 fL (7.4-10.4); Monocytes # 0.3 10^3/uL (0.2-0.9); Monocytes % 2.9 %; Neutrophils # 9.25 10^3/uL (1.8-7.7); Neutrophils % 81.8 %; Nucleated Red Blood Cells % 0 %; Platelet Count 514 10^3/cmm (130-400); Red Blood Count 3.15 10^6/uL (4.1-5.3); Red Cell Distribution Width 17.7 % (12.1-15.1); White Blood Count 11.3 10^3/uL (4.0-10.0)
== END 2022-06-12 23:59 | disposition home or self-care (01) ==
PROVIDERS: PCP Nurse Practitioner Family; Visit Provider Internal Medicine Medical Oncology
DX: D50.8 Other iron deficiency anemias (principal)
CPT/HCPCS: 85025; 86850; 86900; 96365; J1439

== ENCOUNTER 2022-06-13 08:35 | Oncology outpatient (recurring) (ONCR) | payer MEDICARE, SELFPAY ==
[2022-06-13 09:22] LABS: Ferritin 517 ng/mL (15-150); Iron 53 ug/dL (37-145); Percent Saturation 21.3 % (20-50); Total Iron Binding Capacity 248 mcg/dl; Unsaturated Iron Binding 195 ug/dL (112-347)
== END 2022-07-12 23:59 | disposition home or self-care (01) ==
PROVIDERS: PCP Nurse Practitioner Family; Visit Provider Internal Medicine Medical Oncology
DX: D50.8 Other iron deficiency anemias (principal)
CPT/HCPCS: 82728; 83540; 83550

== ENCOUNTER 2022-09-01 08:30 | Oncology outpatient (recurring) (ONCR) | payer BC, SELFPAY ==
[2022-08-16 09:36] LABS: Basophils % 0.3 %; Eosinophils # 0.1 10^3/uL (0.0-0.8); Eosinophils % 1.3 %; Hematocrit 31.9 % (37.0-47.0); Hemoglobin 9.8 g/dL (11.5-15.3); Lymphocytes % 15.6 %; Mean Corpuscular HGB Conc 30.7 g/dL (30.0-36.0); Mean Corpuscular Hemoglobin 28.6 pg (28.0-34.0); Mean Platelet Volume 10.1 fL (7.4-10.4); Monocytes # 0.2 10^3/uL (0.2-0.9); Neutrophils # 4.84 10^3/uL (1.8-7.7); Neutrophils % 79.5 %; Nucleated Red Blood Cells % 0 %; Platelet Count 548 10^3/cmm (130-400); Red Blood Count 3.43 10^6/uL (4.1-5.3); Red Cell Distribution Width 15.3 % (12.1-15.1); White Blood Count 6.1 10^3/uL (4.0-10.0)
[2022-08-16 10:01] LABS: Alanine Aminotransferase 12 U/L (0-33); Albumin Level 4.2 g/dL (3.5-5.2); Alkaline Phosphatase 194 U/L (35-105); Anion Gap 13.4 (5-19); Aspartate Amino Transferase 21 U/L (0-32); Blood Urea Nitrogen 7 mg/dL (8-23); Calcium 9.5 mg/dL (8.5-10.5); Carbon Dioxide 27 mmol/L (22-29); Chloride 95 mmol/L (98-107); Ferritin 71 ng/mL (15-150); Globulin 3.8 g/dL (1.3-4.6); Glomerular Filtration Rate 55.6 mL/min (90-130); Glucose 105 mg/dL (65-115); Iron 26 ug/dL (37-145); Osmolality Calculated 270 mOsm/kg (285-295); Percent Saturation 9.2 % (20-50); Potassium 4.4 mmol/L (3.5-5.1); Sodium 131 mmol/L (136-145); Total Bilirubin 0.2 mg/dL (0.15-1.2); Total Iron Binding Capacity 282 mcg/dl; Unsaturated Iron Binding 256 ug/dL (112-347)
[2022-09-01] MEDS: sodium chloride 0.9% 250 ML 75 ML IV (08:41)
[2022-09-01] MEDS: ferric carboxy (IVPB) 750 MG in sodium chloride 0.9% (100 ml) 100 ML 345 MG IV (08:41)
[2022-09-01 09:30] VITALS: BP 144/79; PULSE 66; RESP 18; TEMP 36.1; O2SAT 98
== END 2022-09-12 23:59 | disposition home or self-care (01) ==
PROVIDERS: PCP Family Medicine; Visit Provider Internal Medicine Medical Oncology
DX: D50.8 Other iron deficiency anemias (principal); D50.0 Iron deficiency anemia secondary to blood loss (chronic)
CPT/HCPCS: 36415; 80053; 82728; 83540; 83550; 85025; 96365; J1439; J7050

== ENCOUNTER 2022-10-04 09:00 | Oncology outpatient (recurring) (ONCR) | payer BC, SELFPAY ==
[2022-09-26 10:21] LABS: Basophils % 0.2 %; Eosinophils # 0.1 10^3/uL (0.0-0.8); Eosinophils % 0.5 %; Hematocrit 27.2 % (37.0-47.0); Hemoglobin 8.4 g/dL (11.5-15.3); Lymphocytes # 1.1 10^3/uL (0.8-4.8); Lymphocytes % 12.4 %; Mean Corpuscular HGB Conc 30.9 g/dL (30.0-36.0); Mean Corpuscular Hemoglobin 29.1 pg (28.0-34.0); Mean Corpuscular Volume 94.1 fl (81-99); Mean Platelet Volume 10.3 fL (7.4-10.4); Monocytes # 0.3 10^3/uL (0.2-0.9); Monocytes % 2.8 %; Neutrophils # 7.64 10^3/uL (1.8-7.7); Neutrophils % 83.7 %; Nucleated Red Blood Cells % 0 %; Platelet Count 464 10^3/cmm (130-400); Red Blood Count 2.89 10^6/uL (4.1-5.3); Red Cell Distribution Width 18.6 % (12.1-15.1); White Blood Count 9.1 10^3/uL (4.0-10.0)
[2022-09-26 10:36] LABS: Alanine Aminotransferase 11 U/L (0-33); Albumin Level 3.9 g/dL (3.5-5.2); Alkaline Phosphatase 237 U/L (35-105); Anion Gap 15.6 (5-19); Aspartate Amino Transferase 18 U/L (0-32); Blood Urea Nitrogen 5 mg/dL (8-23); Calcium 8.2 mg/dL (8.5-10.5); Carbon Dioxide 25 mmol/L (22-29); Chloride 98 mmol/L (98-107); Globulin 3.3 g/dL (1.3-4.6); Glomerular Filtration Rate 62.8 mL/min (90-130); Glucose 101 mg/dL (65-115); Osmolality Calculated 275 mOsm/kg (285-295); Potassium 4.6 mmol/L (3.5-5.1); Sodium 134 mmol/L (136-145); Total Bilirubin 0.2 mg/dL (0.15-1.2); Total Protein 7.2 g/dL (6.6-8.7)
[2022-09-26 12:02] LABS: Ferritin 233 ng/mL (15-150); Iron 16 ug/dL (37-145); Percent Saturation 7.8 % (20-50); Total Iron Binding Capacity 204 mcg/dl; Unsaturated Iron Binding 188 ug/dL (112-347)
[2022-10-03 08:57] LABS: Basophils # 0.1 10^3/uL (0.0-0.1); Basophils % 0.6 %; Eosinophils # 0.1 10^3/uL (0.0-0.8); Eosinophils % 1.6 %; Hematocrit 27.3 % (37.0-47.0); Lymphocytes # 1.2 10^3/uL (0.8-4.8); Lymphocytes % 13.2 %; Mean Corpuscular HGB Conc 29.3 g/dL (30.0-36.0); Mean Corpuscular Hemoglobin 28.2 pg (28.0-34.0); Mean Corpuscular Volume 96.1 fl (81-99); Mean Platelet Volume 9.4 fL (7.4-10.4); Monocytes # 0.3 10^3/uL (0.2-0.9); Monocytes % 3.6 %; Neutrophils # 7.06 10^3/uL (1.8-7.7); Nucleated Red Blood Cells % 0 %; Platelet Count 647 10^3/cmm (130-400); Red Blood Count 2.84 10^6/uL (4.1-5.3); Red Cell Distribution Width 19.1 % (12.1-15.1); White Blood Count 8.8 10^3/uL (4.0-10.0)
[2022-10-03 09:13] LABS: Ferritin 134 ng/mL (15-150); Iron 37 ug/dL (37-145); Percent Saturation 14.4 % (20-50); Total Iron Binding Capacity 256 mcg/dl; Unsaturated Iron Binding 219 ug/dL (112-347)
[2022-10-04] MEDS: sodium chloride 0.9% 250 mL Bag IV (10:01)
[2022-10-04] MEDS: diphenhydrAMINE 25 mg Capsule PO (10:01)
[2022-10-04] MEDS: acetaminophen 325 mg Tablet 650 MG PO (10:02)
[2022-10-04 10:11] VITALS: BP 150/60; PULSE 81; RESP 18; TEMP 36.4; O2SAT 99
[2022-10-04 10:24] VITALS: BP 158/61; PULSE 77; RESP 18; TEMP 36.4; O2SAT 98
== END 2022-10-10 23:59 | disposition home or self-care (01) ==
PROVIDERS: PCP Family Medicine; Visit Provider Internal Medicine Medical Oncology
DX: D50.8 Other iron deficiency anemias (principal); Z79.899 Other long term (current) drug therapy
CPT/HCPCS: 36415; 36430; 80053; 82728; 83540; 83550; 85025; 86850; 86900; 86920; J7050; P9016

== ENCOUNTER 2022-10-31 09:00 | Oncology outpatient (recurring) (ONCR) | payer MEDICARE, SELFPAY ==
[2022-10-12] MEDS: sodium chloride 0.9% 250 ML 100 ML IV (11:11)
[2022-10-12] MEDS: ferric carboxy (IVPB) 750 MG in sodium chloride 0.9% (100 ml) 100 ML 345 MG IV (11:21)
[2022-10-12 12:15] VITALS: BP 156/85; PULSE 83; TEMP 36.6
[2022-10-17 09:02] LABS: Basophils # 0.1 10^3/uL (0.0-0.1); Basophils % 0.5 %; Eosinophils # 0.2 10^3/uL (0.0-0.8); Eosinophils % 1.9 %; Hematocrit 34.3 % (37.0-47.0); Hemoglobin 10.6 g/dL (11.5-15.3); Lymphocytes # 1.4 10^3/uL (0.8-4.8); Lymphocytes % 12.2 %; Mean Corpuscular HGB Conc 30.9 g/dL (30.0-36.0); Mean Corpuscular Hemoglobin 28.8 pg (28.0-34.0); Mean Corpuscular Volume 93.2 fl (81-99); Monocytes # 0.5 10^3/uL (0.2-0.9); Neutrophils # 9.09 10^3/uL (1.8-7.7); Neutrophils % 80.8 %; Nucleated Red Blood Cells % 0 %; Platelet Count 466 10^3/cmm (130-400); Red Blood Count 3.68 10^6/uL (4.1-5.3); Red Cell Distribution Width 17.2 % (12.1-15.1); White Blood Count 11.3 10^3/uL (4.0-10.0)
== END 2022-11-10 23:59 | disposition home or self-care (01) ==
PROVIDERS: PCP Family Medicine; Visit Provider Internal Medicine Medical Oncology
DX: Z53.9 Procedure and treatment not carried out, unspecified reason (principal)
CPT/HCPCS: 36415; 85025; 86850; 86900; 96365; J1439; J7050

== ENCOUNTER 2022-11-28 08:33 | Oncology outpatient (recurring) (ONCR) | payer MEDICARE, SELFPAY ==
[2022-11-16 08:49] LABS: Basophils # 0.1 10^3/uL (0.0-0.1); Basophils % 0.8 %; Eosinophils # 0.1 10^3/uL (0.0-0.8); Eosinophils % 1.7 %; Hematocrit 33.3 % (37.0-47.0); Hemoglobin 9.8 g/dL (11.5-15.3); Lymphocytes # 1.2 10^3/uL (0.8-4.8); Lymphocytes % 19.4 %; Mean Corpuscular HGB Conc 29.4 g/dL (30.0-36.0); Mean Corpuscular Hemoglobin 29.8 pg (28.0-34.0); Mean Corpuscular Volume 101.2 fl (81-99); Mean Platelet Volume 9.7 fL (7.4-10.4); Monocytes # 0.3 10^3/uL (0.2-0.9); Neutrophils # 4.64 10^3/uL (1.8-7.7); Neutrophils % 73.6 %; Nucleated Red Blood Cells % 0 %; Platelet Count 510 10^3/cmm (130-400); Red Blood Count 3.29 10^6/uL (4.1-5.3); Red Cell Distribution Width 17.2 % (12.1-15.1); White Blood Count 6.3 10^3/uL (4.0-10.0)
[2022-11-16 09:05] LABS: Alanine Aminotransferase 11 U/L (0-33); Alkaline Phosphatase 162 U/L (35-105); Anion Gap 13.4 (5-19); Aspartate Amino Transferase 18 U/L (0-32); Blood Urea Nitrogen 6 mg/dL (8-23); Calcium 8.3 mg/dL (8.5-10.5); Carbon Dioxide 23 mmol/L (22-29); Chloride 103 mmol/L (98-107); Ferritin 154 ng/mL (15-150); Glomerular Filtration Rate 55.6 mL/min (90-130); Glucose 98 mg/dL (65-115); Iron 33 ug/dL (37-145); Osmolality Calculated 278 mOsm/kg (285-295); Percent Saturation 12.8 % (20-50); Potassium 4.4 mmol/L (3.5-5.1); Sodium 135 mmol/L (136-145); Total Bilirubin 0.2 mg/dL (0.15-1.2); Total Iron Binding Capacity 257 mcg/dl; Unsaturated Iron Binding 224 ug/dL (112-347)
[2022-11-21 09:00] VITALS: BP 148/76; PULSE 83; RESP 18; TEMP 36.4; O2SAT 99
[2022-11-21] MEDS: ferric carboxy (IVPB) 750 MG in sodium chloride 0.9% (100 ml) 100 ML 345 MG IV (09:24)
[2022-11-21 10:00] VITALS: BP 146/89; PULSE 54; PULSE 84; RESP 18; TEMP 35.8; TEMP 35.9; O2SAT 96
[2022-11-28 09:10] VITALS: BP 154/73; PULSE 82; RESP 18; TEMP 36.4; O2SAT 98
[2022-11-28] MEDS: ferric carboxy (IVPB) 750 MG in sodium chloride 0.9% (100 ml) 100 ML 345 MG IV (09:12)
[2022-11-28 09:35] VITALS: BP 156/78; PULSE 82; RESP 18; TEMP 36.4; O2SAT 99
== END 2022-12-10 23:59 | disposition home or self-care (01) ==
PROVIDERS: PCP Family Medicine; Visit Provider Internal Medicine Medical Oncology
DX: D50.9 Iron deficiency anemia, unspecified (principal); Z79.899 Other long term (current) drug therapy
CPT/HCPCS: 36415; 80053; 82728; 83540; 83550; 85025; 96365; 96374; 99214; J1439

== ENCOUNTER 2023-03-08 08:00 | Oncology outpatient (recurring) (ONCR) | payer MEDICARE, SELFPAY ==
[2023-02-22 10:37] VITALS: BP 164/71; PULSE 88; RESP 18; TEMP 36.7; O2SAT 97
[2023-02-22 10:47] LABS: Basophils # 0.1 10^3/uL (0.0-0.1); Basophils % 0.7 %; Eosinophils # 0.1 10^3/uL (0.0-0.8); Eosinophils % 1.5 %; Hematocrit 29.4 % (37.0-47.0); Hemoglobin 8.9 g/dL (11.5-15.3); Lymphocytes # 1.3 10^3/uL (0.8-4.8); Lymphocytes % 17.9 %; Mean Corpuscular HGB Conc 30.3 g/dL (30.0-36.0); Mean Corpuscular Hemoglobin 28.8 pg (28.0-34.0); Mean Corpuscular Volume 95.1 fl (81-99); Mean Platelet Volume 9.6 fL (7.4-10.4); Monocytes # 0.3 10^3/uL (0.2-0.9); Monocytes % 4.4 %; Neutrophils # 5.63 10^3/uL (1.8-7.7); Neutrophils % 75.2 %; Nucleated Red Blood Cells % 0 %; Platelet Count 484 10^3/cmm (130-400); Red Blood Count 3.09 10^6/uL (4.1-5.3); Red Cell Distribution Width 15.4 % (12.1-15.1); White Blood Count 7.5 10^3/uL (4.0-10.0)
[2023-02-22 11:09] LABS: Alanine Aminotransferase 10 U/L (0-33); Alkaline Phosphatase 192 U/L (35-105); Anion Gap 13.4 (5-19); Aspartate Amino Transferase 16 U/L (0-32); Blood Urea Nitrogen 9 mg/dL (8-23); Calcium 8.5 mg/dL (8.5-10.5); Carbon Dioxide 26 mmol/L (22-29); Chloride 99 mmol/L (98-107); Ferritin 72 ng/mL (15-150); Globulin 3.3 g/dL (1.3-4.6); Glomerular Filtration Rate 62.8 mL/min (90-130); Glucose 101 mg/dL (65-115); Iron 22 ug/dL (37-145); Osmolality Calculated 277 mOsm/kg (285-295); Percent Saturation 7.8 % (20-50); Potassium 4.4 mmol/L (3.5-5.1); Sodium 134 mmol/L (136-145); Total Bilirubin 0.2 mg/dL (0.15-1.2); Total Iron Binding Capacity 281 mcg/dl; Total Protein 7.3 g/dL (6.6-8.7); Unsaturated Iron Binding 259 ug/dL (112-347)
[2023-03-01 08:21] VITALS: BP 135/51; PULSE 71; TEMP 36.8; O2SAT 98
[2023-03-01] MEDS: ferric carboxy (IVPB) 750 MG in sodium chloride 0.9% (100 ml) 100 ML 345 MG IV (08:49)
[2023-03-01 09:30] VITALS: BP 166/66; PULSE 74; RESP 16; TEMP 36.5; O2SAT 99
--- NOTE | 2023-03-01 09:45 | CT_ITS ---
WS: [id number] LDCT LUNG CANCER SCREENING HISTORY: NICOTINE DEPENDENCE, CIGARETTES TECHNIQUE: Axial imaging performed from the apices to 1 cm below the costophrenic angles. Coronal and sagittal reformats are submitted with axial MIP series. All CT scans at [facility] use at least one of these dose optimization techniques: automated exposure control; mA and/or kV adjustment per patient size (includes targeted exams where dose is matched to clinical indication); or iterativ e reconstruction. DLP: 40.00 mGy.cm DIvol: Mean CTDIvol: 0.60 (mGy) COMPARISON: 09/24/2014 Diagnostic quality: Satisfactory Lungs: Marked hyperexpansion of the lungs. There is diffuse hazy attenuation and numerous cysts of va rious sizes scattered throughout the lungs. Very similar to the prior examination from 2014. No mass or nodule. Heart: Normal size heart with no pericardial effusion.. Other findings: No adenopathy. Normal size aorta with minimal atherosclerotic plaque. Small hiatal he rnia. Splenic granulomata. Stable exophytic cyst superior pole LEFT kidney 1.0 cm. RIGHT adrenal raul louis 1.5 cm and stable. No destructive bone lesions. Prior fusion hardware cervical spine. CT/CT lung screening [id number] IMPRESSION: LUNG-RADS: 1-Negative FOLLOW UP: 12 Month: Continue annual screening with LDCT OTHER FINDINGS (S MODIFIER): None.
[2023-03-08 08:07] VITALS: BP 147/70; PULSE 82; RESP 18; TEMP 36.1; O2SAT 98
[2023-03-08] MEDS: ferric carboxy (IVPB) 750 MG in sodium chloride 0.9% (100 ml) 100 ML 345 MG IV (08:38)
[2023-03-08 09:11] VITALS: BP 180/77; PULSE 77; RESP 18; TEMP 36.8; O2SAT 97
== END 2023-03-12 23:59 | disposition home or self-care (01) ==
PROVIDERS: PCP Family Medicine; Visit Provider Internal Medicine Medical Oncology
DX: E61.1 Iron deficiency (principal)
CPT/HCPCS: 36415; 71271; 80053; 82728; 83540; 83550; 85025; 96365; J1439

== ENCOUNTER 2023-04-12 13:13 | Oncology outpatient (recurring) (ONCR) | payer MEDICARE, MEDICAID, SELFPAY ==
[2023-04-11 08:53] VITALS: BP 151/58; PULSE 78; RESP 16; TEMP 36.1; O2SAT 98
[2023-04-11 09:12] LABS: Basophils # 0.1 10^3/uL (0.0-0.1); Basophils % 0.6 %; Eosinophils # 0.1 10^3/uL (0.0-0.8); Eosinophils % 1.2 %; Hematocrit 28.4 % (36-47); Lymphocytes # 1.8 10^3/uL (0.8-4.8); Lymphocytes % 18.8 %; Mean Corpuscular HGB Conc 31.3 g/dL (30-55); Mean Corpuscular Hemoglobin 31.2 pg (27-33); Mean Corpuscular Volume 99.6 fl (85-98); Mean Platelet Volume 9.9 fL (7.4-10.4); Monocytes # 0.5 10^3/uL (0.2-0.9); Monocytes % 4.7 %; Neutrophils # 7.01 10^3/uL (1.8-7.7); Neutrophils % 73.9 %; Nucleated Red Blood Cells % 0.2 %; Platelet Count 426 10^3/cmm (157-399); Red Blood Count 2.85 10^6/uL (3.85-5.65)
[2023-04-11 11:41] LABS: Ferritin 317 ng/mL (15-150); Iron 47 ug/dL (37-145)
[2023-04-12 14:42] LABS: Reticulocyte % 6.6 % (0.5-2.0)
[2023-04-12 14:59] LABS: Lactate Dehydrogenase 188 U/L (135-214)
[2023-04-12 15:15] LABS: Vitamin B12 460 pg/mL (232-1245)
[2023-04-17 09:53] LABS: Erythropoietin 30.7 mIU/mL (2.6-18.5)
[2023-04-18 09:19] LABS: Zinc Level, Serum or Plasma 109 mcg/dL (60-130)
[2023-04-19 14:54] LABS: Copper Level 94 mcg/dL (70-175)
== END 2023-04-12 23:59 | disposition home or self-care (01) ==
PROVIDERS: Internal Medicine Medical Oncology; PCP Family Medicine; Visit Provider Internal Medicine Medical Oncology
DX: D50.9 Iron deficiency anemia, unspecified (principal)
CPT/HCPCS: 36415; 82525; 82607; 82668; 82728; 82747; 83010; 83540; 83615; 84630; 85025; 85045; 99213

== ENCOUNTER 2023-04-26 10:57 | Oncology outpatient (recurring) (ONCR) | payer MEDICARE, MEDICAID, SELFPAY ==
[2023-04-26 11:50] VITALS: BP 171/78; PULSE 59; RESP 16; TEMP 36.4; O2SAT 99
[2023-04-26 12:04] LABS: Basophils % 0.6 %; Eosinophils # 0.1 10^3/uL (0.0-0.8); Eosinophils % 0.9 %; Hematocrit 31.2 % (36-47); Lymphocytes # 1.4 10^3/uL (0.8-4.8); Mean Corpuscular HGB Conc 30.4 g/dL (30-55); Mean Corpuscular Hemoglobin 30.4 pg (27-33); Mean Platelet Volume 9.7 fL (7.4-10.4); Monocytes # 0.3 10^3/uL (0.2-0.9); Monocytes % 4.2 %; Neutrophils # 4.81 10^3/uL (1.8-7.7); Neutrophils % 72.5 %; Nucleated Red Blood Cells % 0 %; Platelet Count 514 10^3/cmm (157-399); Red Blood Count 3.12 10^6/uL (3.85-5.65); Red Cell Distribution Width 15.2 % (12.1-15.1); White Blood Count 6.63 10^3/uL (3.29-11.43)
[2023-04-26 12:11] LABS: Alanine Aminotransferase 9 U/L (0-33); Alkaline Phosphatase 180 U/L (35-105); Aspartate Amino Transferase 18 U/L (0-32); Blood Urea Nitrogen 7 mg/dL (8-23); Calcium 8.3 mg/dL (8.5-10.5); Carbon Dioxide 27 mmol/L (22-29); Chloride 100 mmol/L (98-107); Ferritin 207 ng/mL (15-150); Globulin 3.3 g/dL (1.3-4.6); Glomerular Filtration Rate 62.8 mL/min (90-130); Glucose 90 mg/dL (65-115); Iron 39 ug/dL (37-145); Osmolality Calculated 278 mOsm/kg (285-295); Percent Saturation 14.6 % (20-50); Sodium 135 mmol/L (136-145); Total Bilirubin 0.2 mg/dL (0.15-1.2); Total Iron Binding Capacity 267 mcg/dl; Total Protein 7.3 g/dL (6.6-8.7); Unsaturated Iron Binding 228 ug/dL (112-347)
== END 2023-05-12 23:59 | disposition home or self-care (01) ==
PROVIDERS: PCP Family Medicine; Visit Provider Internal Medicine Medical Oncology
DX: D50.9 Iron deficiency anemia, unspecified (principal); Z79.899 Other long term (current) drug therapy; M47.9 Spondylosis, unspecified; G89.29 Other chronic pain; F17.210 Nicotine dependence, cigarettes, uncomplicated; Z79.891 Long term (current) use of opiate analgesic
CPT/HCPCS: 36415; 80053; 82728; 83540; 83550; 85025; 99214

== ENCOUNTER 2023-06-07 09:31 | Oncology outpatient (recurring) (ONCR) | payer MEDICARE, MEDICAID, SELFPAY ==
[2023-05-24] VITALS (9 sets, daily range): BP systolic 137–161; BP diastolic 54–71; PULSE 84–99; RESP 16–20; TEMP 36.2–36.8; O2SAT 90–99
[2023-05-24 11:15] LABS: Basophils % 0.4 %; Eosinophils % 0.4 %; Lymphocytes # 1.1 10^3/uL (0.8-4.8); Lymphocytes % 12.8 %; Mean Corpuscular HGB Conc 28.4 g/dL (30-55); Mean Corpuscular Hemoglobin 27.4 pg (27-33); Mean Corpuscular Volume 96.6 fl (85-98); Mean Platelet Volume 9.8 fL (7.4-10.4); Monocytes # 0.3 10^3/uL (0.2-0.9); Monocytes % 3.4 %; Neutrophils # 7.01 10^3/uL (1.8-7.7); Neutrophils % 82.5 %; Nucleated Red Blood Cells % 0.2 %; Platelet Count 533 10^3/cmm (157-399); Red Blood Count 1.75 10^6/uL (3.85-5.65); Red Cell Distribution Width 17.6 % (12.1-15.1); White Blood Count 8.49 10^3/uL (3.29-11.43)
[2023-05-24 11:25] LABS: Hematocrit 16.9 % (36-47)
[2023-05-24 11:50] LABS: Ferritin 167 ng/mL (15-150); Iron 16 ug/dL (37-145); Percent Saturation 5.4 % (20-50); Total Iron Binding Capacity 295 mcg/dl; Unsaturated Iron Binding 279 ug/dL (112-347)
[2023-05-24] MEDS: acetaminophen 325 mg Tablet 650 MG PO (13:09)
[2023-05-24] MEDS: sodium chloride 0.9% 250 mL Bag IV (13:09)
[2023-05-24] MEDS: diphenhydrAMINE 25 mg Capsule PO (13:10)
[2023-05-24] MEDS: ipratropium-albuterol 3 mL Neb INHALATION (17:09)
[2023-05-24] MEDS: FUROsemide 10 mg/mL SDV 2mL 20 MG IVP (17:10)
[2023-05-25 07:55] LABS: Basophils # 0.1 10^3/uL (0.0-0.1); Basophils % 0.3 %; Eosinophils % 0.1 %; Hematocrit 28.9 % (36-47); Mean Corpuscular HGB Conc 31.8 g/dL (30-55); Mean Corpuscular Hemoglobin 27.5 pg (27-33); Mean Corpuscular Volume 86.3 fl (85-98); Mean Platelet Volume 9.9 fL (7.4-10.4); Monocytes # 0.5 10^3/uL (0.2-0.9); Monocytes % 3.6 %; Neutrophils # 12.78 10^3/uL (1.8-7.7); Neutrophils % 88.4 %; Nucleated Red Blood Cells # 0.1 /100WBC; Nucleated Red Blood Cells % 0.4 %; Platelet Count 562 10^3/cmm (157-399); Red Blood Count 3.35 10^6/uL (3.85-5.65); Red Cell Distribution Width 19.3 % (12.1-15.1); White Blood Count 14.48 10^3/uL (3.29-11.43)
[2023-05-28 09:48] VITALS: BP 164/62; PULSE 107; RESP 16; TEMP 36.3; O2SAT 96
[2023-05-28 10:18] LABS: Basophils # 0.1 10^3/uL (0.0-0.1); Basophils % 0.5 %; Eosinophils # 0.1 10^3/uL (0.0-0.8); Eosinophils % 0.6 %; Hematocrit 30.4 % (36-47); Lymphocytes # 0.8 10^3/uL (0.8-4.8); Lymphocytes % 8.6 %; Mean Corpuscular HGB Conc 29.6 g/dL (30-55); Mean Corpuscular Hemoglobin 27.3 pg (27-33); Mean Corpuscular Volume 92.1 fl (85-98); Monocytes # 0.4 10^3/uL (0.2-0.9); Monocytes % 4.1 %; Neutrophils # 8.01 10^3/uL (1.8-7.7); Neutrophils % 85.9 %; Nucleated Red Blood Cells % 0 %; Platelet Count 603 10^3/cmm (157-399); Red Cell Distribution Width 17.6 % (12.1-15.1); White Blood Count 9.33 10^3/uL (3.29-11.43)
[2023-05-31 09:21] VITALS: BP 134/56; PULSE 97; RESP 18; TEMP 35.8; O2SAT 98
[2023-05-31] MEDS: ferric carboxy (IVPB) 750 MG in sodium chloride 0.9% (100 ml) 100 ML 345 MG IV (09:41)
[2023-05-31 11:19] VITALS: BP 156/65; PULSE 95; RESP 16; TEMP 36.6; O2SAT 99
[2023-06-07 09:16] VITALS: BP 164/71; PULSE 84; RESP 16; TEMP 36.3; O2SAT 97
[2023-06-07] MEDS: ferric carboxy (IVPB) 750 MG in sodium chloride 0.9% (100 ml) 100 ML 345 MG IV (09:33)
[2023-06-07 10:00] VITALS: BP 175/76; PULSE 96; RESP 17; TEMP 36.3; O2SAT 96
== END 2023-06-12 23:59 | disposition home or self-care (01) ==
PROVIDERS: PCP Family Medicine; Visit Provider Internal Medicine Medical Oncology
DX: D50.8 Other iron deficiency anemias (principal)
CPT/HCPCS: 36415; 36430; 82274; 82728; 83540; 83550; 85025; 86850; 86900; 86920; 96365; 96374; 96375; J1439; J1642; J1940; J7050; P9040

== ENCOUNTER 2023-07-26 08:02 | Oncology outpatient (recurring) (ONCR) | payer MEDICARE, MEDICAID, SELFPAY ==
[2023-07-26 08:20] VITALS: BP 144/66; PULSE 90; RESP 16; TEMP 36.5; O2SAT 95
[2023-07-26 08:32] LABS: Basophils # 0.1 10^3/uL (0.0-0.1); Basophils % 0.8 %; Eosinophils # 0.1 10^3/uL (0.0-0.8); Eosinophils % 1.5 %; Hematocrit 30.6 % (36-47); Lymphocytes # 1.2 10^3/uL (0.8-4.8); Lymphocytes % 16.5 %; Mean Corpuscular HGB Conc 30.4 g/dL (30-55); Mean Corpuscular Hemoglobin 30.2 pg (27-33); Mean Corpuscular Volume 99.4 fl (85-98); Monocytes # 0.4 10^3/uL (0.2-0.9); Monocytes % 5.9 %; Neutrophils # 5.46 10^3/uL (1.8-7.7); Nucleated Red Blood Cells % 0 %; Platelet Count 408 10^3/cmm (157-399); Red Blood Count 3.08 10^6/uL (3.85-5.65); Red Cell Distribution Width 15.8 % (12.1-15.1); White Blood Count 7.28 10^3/uL (3.29-11.43)
[2023-07-26 08:59] LABS: Alanine Aminotransferase 14 U/L (0-33); Alkaline Phosphatase 182 U/L (35-105); Anion Gap 13.2 (5-19); Aspartate Amino Transferase 20 U/L (0-32); Blood Urea Nitrogen 8 mg/dL (8-23); Calcium 8.7 mg/dL (8.5-10.5); Carbon Dioxide 27 mmol/L (22-29); Chloride 99 mmol/L (98-107); Ferritin 176 ng/mL (15-150); Globulin 2.9 g/dL (1.3-4.6); Glomerular Filtration Rate 62.6 mL/min (90-130); Glucose 101 mg/dL (65-115); Iron 40 ug/dL (37-145); Osmolality Calculated 278 mOsm/kg (285-295); Percent Saturation 16.3 % (20-50); Potassium 4.2 mmol/L (3.5-5.1); Sodium 135 mmol/L (136-145); Total Bilirubin 0.2 mg/dL (0.15-1.2); Total Iron Binding Capacity 245 mcg/dl; Total Protein 6.9 g/dL (6.6-8.7); Unsaturated Iron Binding 205 ug/dL (112-347)
== END 2023-08-12 23:59 | disposition home or self-care (01) ==
PROVIDERS: PCP Family Medicine; Visit Provider Internal Medicine Medical Oncology
DX: D50.8 Other iron deficiency anemias (principal); D64.9 Anemia, unspecified; D50.9 Iron deficiency anemia, unspecified
CPT/HCPCS: 36415; 80053; 82728; 83540; 83550; 85025; 99214

== ENCOUNTER 2023-09-12 08:00 | Oncology outpatient (recurring) (ONCR) | payer MEDICARE, MEDICAID, SELFPAY ==
[2023-09-11 12:07] LABS: Basophils # 0.1 10^3/uL (0.0-0.1); Basophils % 0.7 %; Eosinophils # 0.2 10^3/uL (0.0-0.8); Eosinophils % 1.7 %; Hematocrit 22.3 % (36-47); Lymphocytes # 1.8 10^3/uL (0.8-4.8); Lymphocytes % 20.2 %; Mean Corpuscular HGB Conc 28.3 g/dL (30-55); Mean Corpuscular Hemoglobin 24.5 pg (27-33); Mean Corpuscular Volume 86.8 fl (85-98); Mean Platelet Volume 9.9 fL (7.4-10.4); Monocytes # 0.4 10^3/uL (0.2-0.9); Monocytes % 4.3 %; Neutrophils # 6.26 10^3/uL (1.8-7.7); Neutrophils % 72.2 %; Nucleated Red Blood Cells % 0 %; Platelet Count 641 10^3/cmm (157-399); Red Blood Count 2.57 10^6/uL (3.85-5.65); Red Cell Distribution Width 18.3 % (12.1-15.1); White Blood Count 8.67 10^3/uL (3.29-11.43)
[2023-09-11 12:23] LABS: Alanine Aminotransferase 14 U/L (0-33); Albumin Level 4.1 g/dL (3.5-5.2); Alkaline Phosphatase 213 U/L (35-105); Anion Gap 13.8 (5-19); Aspartate Amino Transferase 20 U/L (0-32); Blood Urea Nitrogen 8 mg/dL (8-23); Carbon Dioxide 26 mmol/L (22-29); Chloride 99 mmol/L (98-107); Ferritin 32 ng/mL (15-150); Globulin 3.5 g/dL (1.3-4.6); Glomerular Filtration Rate 55.5 mL/min (90-130); Glucose 109 mg/dL (65-115); Iron 13 ug/dL (37-145); Osmolality Calculated 279 mOsm/kg (285-295); Potassium 3.8 mmol/L (3.5-5.1); Sodium 135 mmol/L (136-145); Total Bilirubin 0.2 mg/dL (0.15-1.2); Total Protein 7.6 g/dL (6.6-8.7)
[2023-09-11] MEDS: acetaminophen 325 mg Tablet 650 MG PO (15:03)
[2023-09-11] MEDS: diphenhydrAMINE 25 mg Capsule PO (15:04)
[2023-09-11] MEDS: sodium chloride 0.9% 250 mL Bag IV (15:52)
[2023-09-11 15:56] VITALS: BP 159/54; PULSE 88; RESP 18; TEMP 36.4; O2SAT 92
--- NOTE | 2023-09-11 16:04 | PC.NURSE ---
labs drawn earlier today with Dr Valero reviewing the labs with new orders for transfusion of 2 units and Injectafer x 2 with plans for one unit today and one tomorrow with one injectafer tomorrow.mm
[2023-09-11 16:15] VITALS: BP 165/54; PULSE 89; RESP 17; TEMP 35.8; O2SAT 92
[2023-09-11 16:30] VITALS: BP 170/65; PULSE 94; RESP 18; TEMP 36; O2SAT 92
[2023-09-11 16:58] VITALS: BP 165/68; PULSE 86; RESP 18; TEMP 36.3; O2SAT 91
[2023-09-11 17:40] VITALS: BP 171/74; PULSE 84; RESP 18; TEMP 36.4; O2SAT 92
[2023-09-12] MEDS: diphenhydrAMINE 25 mg Capsule PO (08:45)
[2023-09-12] MEDS: acetaminophen 325 mg Tablet 650 MG PO (08:46)
[2023-09-12] MEDS: sodium chloride 0.9% 250 ML IV (08:46)
[2023-09-12 08:54] VITALS: BP 159/63; PULSE 81; RESP 18; TEMP 35.5; O2SAT 97
[2023-09-12 09:14] VITALS: BP 167/71; PULSE 76; RESP 17; TEMP 36.1; O2SAT 98
[2023-09-12 09:30] VITALS: BP 167/68; PULSE 80; PULSE 81; RESP 17; RESP 18; TEMP 35.5; TEMP 36.1; O2SAT 97
[2023-09-12 09:45] VITALS: BP 164/78; BP 164/79; PULSE 80; RESP 17; RESP 18; TEMP 35.5; TEMP 36.1; O2SAT 96
[2023-09-12 10:15] VITALS: BP 197/92; PULSE 87; RESP 18; TEMP 36.1; O2SAT 94
[2023-09-12 11:15] VITALS: BP 181/72; PULSE 87; RESP 18; TEMP 36.6; O2SAT 94
[2023-09-15 15:50] LABS: Soluble Transferrin Receptor 5.87 mg/L (0.76-1.76)
== END 2023-09-12 23:59 | disposition home or self-care (01) ==
PROVIDERS: Internal Medicine; PCP Family Medicine; Visit Provider Internal Medicine Medical Oncology
DX: D50.8 Other iron deficiency anemias (principal); D64.9 Anemia, unspecified; D50.9 Iron deficiency anemia, unspecified
CPT/HCPCS: 36415; 36430; 80053; 82728; 83540; 84238; 85025; 86850; 86900; 86920; J7050; P9016

== ENCOUNTER 2023-09-27 09:30 | Oncology outpatient (recurring) (ONCR) | payer MEDICARE, MEDICAID, SELFPAY ==
[2023-09-14 08:31] VITALS: BP 163/72; PULSE 88; RESP 18; TEMP 36.9; O2SAT 97
[2023-09-14 09:00] LABS: Basophils # 0.1 10^3/uL (0.0-0.1); Basophils % 0.7 %; Eosinophils # 0.2 10^3/uL (0.0-0.8); Eosinophils % 1.8 %; Lymphocytes # 1.4 10^3/uL (0.8-4.8); Lymphocytes % 16.3 %; Mean Corpuscular HGB Conc 30.9 g/dL (30-55); Mean Corpuscular Volume 84.2 fl (85-98); Mean Platelet Volume 10.1 fL (7.4-10.4); Monocytes # 0.4 10^3/uL (0.2-0.9); Monocytes % 4.7 %; Neutrophils # 6.46 10^3/uL (1.8-7.7); Nucleated Red Blood Cells % 0 %; Platelet Count 560 10^3/cmm (157-399); Red Blood Count 3.92 10^6/uL (3.85-5.65); Red Cell Distribution Width 17.3 % (12.1-15.1); White Blood Count 8.49 10^3/uL (3.29-11.43)
[2023-09-14 09:28] LABS: Alanine Aminotransferase 13 U/L (0-33); Albumin Level 3.9 g/dL (3.5-5.2); Alkaline Phosphatase 211 U/L (35-105); Anion Gap 15.3 (5-19); Aspartate Amino Transferase 20 U/L (0-32); Blood Urea Nitrogen 14 mg/dL (8-23); Calcium 9.2 mg/dL (8.5-10.5); Carbon Dioxide 25 mmol/L (22-29); Chloride 97 mmol/L (98-107); Creatinine Clr Calc Pharmacy 45.5702; Globulin 3.2 g/dL (1.3-4.6); Glomerular Filtration Rate 55.5 mL/min (90-130); Glucose 116 mg/dL (65-115); Osmolality Calculated 277 mOsm/kg (285-295); Potassium 4.3 mmol/L (3.5-5.1); Sodium 133 mmol/L (136-145); Total Bilirubin 0.3 mg/dL (0.15-1.2); Total Protein 7.1 g/dL (6.6-8.7)
[2023-09-17 10:35] VITALS: BP 156/69; PULSE 85; RESP 18; TEMP 36.2; O2SAT 99
[2023-09-17] MEDS: sodium chloride 0.9% 250 ML 75 ML IV (10:49)
[2023-09-17] MEDS: ferric carboxy (IVPB) 750 MG in sodium chloride 0.9% (100 ml) 100 ML 345 MG IV (10:49)
[2023-09-17 10:52] LABS: Basophils # 0.1 10^3/uL (0.0-0.1); Basophils % 0.6 %; Eosinophils # 0.1 10^3/uL (0.0-0.8); Eosinophils % 1.5 %; Hematocrit 35.4 % (36-47); Lymphocytes # 1.7 10^3/uL (0.8-4.8); Lymphocytes % 19.4 %; Mean Corpuscular HGB Conc 30.2 g/dL (30-55); Mean Corpuscular Volume 86.1 fl (85-98); Mean Platelet Volume 9.7 fL (7.4-10.4); Monocytes # 0.4 10^3/uL (0.2-0.9); Monocytes % 4.2 %; Neutrophils # 6.29 10^3/uL (1.8-7.7); Neutrophils % 73.6 %; Nucleated Red Blood Cells % 0 %; Platelet Count 555 10^3/cmm (157-399); Red Blood Count 4.11 10^6/uL (3.85-5.65); Red Cell Distribution Width 16.8 % (12.1-15.1); White Blood Count 8.55 10^3/uL (3.29-11.43)
[2023-09-17 11:21] VITALS: BP 150/68; PULSE 83; RESP 18; TEMP 36.6; O2SAT 95
[2023-09-27 10:10] VITALS: BP 170/76; PULSE 80; RESP 18; TEMP 36.8; O2SAT 98
[2023-09-27] MEDS: ferric carboxy (IVPB) 750 MG in sodium chloride 0.9% (100 ml) 100 ML 345 MG IV (10:16)
[2023-09-27 10:49] VITALS: BP 176/74; PULSE 75; RESP 18; TEMP 36.8; O2SAT 96
== END 2023-10-11 23:59 | disposition home or self-care (01) ==
PROVIDERS: Internal Medicine; Nurse Practitioner Family; PCP Family Medicine; Visit Provider Internal Medicine Medical Oncology
DX: D50.9 Iron deficiency anemia, unspecified (principal)
CPT/HCPCS: 36415; 80053; 85025; 96365; 99214; J1439; J7050

== ENCOUNTER 2023-10-30 12:30 | Oncology outpatient (recurring) (ONCR) | payer MEDICARE, SELFPAY ==
[2023-10-16 11:43] LABS: Basophils # 0.1 10^3/uL (0.0-0.1); Basophils % 0.9 %; Eosinophils # 0.1 10^3/uL (0.0-0.8); Lymphocytes # 1.4 10^3/uL (0.8-4.8); Lymphocytes % 19.8 %; Mean Corpuscular HGB Conc 31.7 g/dL (30-55); Mean Corpuscular Hemoglobin 29.5 pg (27-33); Mean Corpuscular Volume 93.1 fl (85-98); Mean Platelet Volume 10.2 fL (7.4-10.4); Monocytes # 0.4 10^3/uL (0.2-0.9); Monocytes % 5.2 %; Neutrophils # 5.06 10^3/uL (1.8-7.7); Neutrophils % 72.5 %; Nucleated Red Blood Cells % 0 %; Platelet Count 343 10^3/cmm (157-399); Red Blood Count 3.76 10^6/uL (3.85-5.65); Red Cell Distribution Width 20.4 % (12.1-15.1); White Blood Count 6.97 10^3/uL (3.29-11.43)
[2023-10-16 12:12] LABS: Alanine Aminotransferase 14 U/L (0-33); Alkaline Phosphatase 210 U/L (35-105); Anion Gap 11.5 (5-19); Aspartate Amino Transferase 22 U/L (0-32); Blood Urea Nitrogen 9 mg/dL (8-23); Calcium 8.6 mg/dL (8.5-10.5); Carbon Dioxide 28 mmol/L (22-29); Chloride 102 mmol/L (98-107); Ferritin 557 ng/mL (15-150); Glomerular Filtration Rate 71.8 mL/min (90-130); Glucose 91 mg/dL (65-115); Iron 58 ug/dL (37-145); Osmolality Calculated 282 mOsm/kg (285-295); Percent Saturation 24.2 % (20-50); Potassium 4.5 mmol/L (3.5-5.1); Sodium 137 mmol/L (136-145); Total Bilirubin 0.2 mg/dL (0.15-1.2); Total Iron Binding Capacity 239 mcg/dl; Unsaturated Iron Binding 181 ug/dL (112-347)
[2023-10-30 13:04] LABS: Basophils % 0.6 %; Eosinophils # 0.1 10^3/uL (0.0-0.8); Eosinophils % 1.3 %; Hematocrit 41.7 % (36-47); Lymphocytes # 1.6 10^3/uL (0.8-4.8); Lymphocytes % 21.6 %; Mean Corpuscular HGB Conc 30.9 g/dL (30-55); Mean Corpuscular Hemoglobin 29.5 pg (27-33); Mean Corpuscular Volume 95.2 fl (85-98); Mean Platelet Volume 10.1 fL (7.4-10.4); Monocytes # 0.4 10^3/uL (0.2-0.9); Monocytes % 4.9 %; Neutrophils # 5.11 10^3/uL (1.8-7.7); Neutrophils % 71.3 %; Nucleated Red Blood Cells % 0 %; Platelet Count 427 10^3/cmm (157-399); Red Blood Count 4.38 10^6/uL (3.85-5.65); Red Cell Distribution Width 18.3 % (12.1-15.1); White Blood Count 7.16 10^3/uL (3.29-11.43)
[2023-10-30 13:43] LABS: Alanine Aminotransferase 15 U/L (0-33); Albumin Level 4.4 g/dL (3.5-5.2); Alkaline Phosphatase 208 U/L (35-105); Anion Gap 14.5 (5-19); Aspartate Amino Transferase 19 U/L (0-32); Blood Urea Nitrogen 4 mg/dL (8-23); Carbon Dioxide 27 mmol/L (22-29); Chloride 100 mmol/L (98-107); Globulin 3.1 g/dL (1.3-4.6); Glomerular Filtration Rate 83.7 mL/min (90-130); Glucose 88 mg/dL (65-115); Iron 37 ug/dL (37-145); Osmolality Calculated 282 mOsm/kg (285-295); Percent Saturation 13.7 % (20-50); Potassium 3.5 mmol/L (3.5-5.1); Sodium 138 mmol/L (136-145); Total Bilirubin 0.2 mg/dL (0.15-1.2); Total Iron Binding Capacity 269 mcg/dl; Total Protein 7.5 g/dL (6.6-8.7); Unsaturated Iron Binding 232 ug/dL (112-347)
[2023-10-30 13:48] LABS: Vitamin B12 474 pg/mL (232-1245)
[2023-10-30 14:02] LABS: Folate Level 14.7 ng/mL (4.8-37.3)
[2023-11-02 15:34] LABS: Methylmalonic Acid 194 nmol/L (87-318)
[2023-11-05 17:35] LABS: CALR Exon 9 Mutation NOT DETECTED (NOT DETECTED); CSF3R Exon 14/17 Mutation NOT DETECTED (NOT DETECTED); JAK2 Exon 12 Mutation NOT DETECTED (NOT DETECTED); JAK2 V617 Block Specimen ID NG; JAK2 V617 Clinical Indication NG; JAK2 V617 Mutation NOT DETECTED (NOT DETECTED); JAK2 V617 Specimen Source NG; MPL Exon 12 Mutation NOT DETECTED (NOT DETECTED)
[2023-11-06 12:19] LABS: Soluble Transferrin Receptor 2.45 mg/L (0.76-1.76)
== END 2023-11-11 23:59 | disposition home or self-care (01) ==
PROVIDERS: Internal Medicine; Nurse Practitioner Family; PCP Family Medicine; Visit Provider Internal Medicine Medical Oncology
DX: M47.9 Spondylosis, unspecified (principal); D64.9 Anemia, unspecified; Z79.899 Other long term (current) drug therapy
CPT/HCPCS: 36415; 80053; 81270; 81279; 81339; 81479; 82607; 82728; 82746; 83540; 83550; 83921; 84238; 85025; 99214

== ENCOUNTER 2024-01-28 08:00 | Oncology outpatient (recurring) (ONCR) | payer MEDICARE, SELFPAY ==
[2024-01-15 14:48] LABS: Basophils # 0.1 10^3/uL (0.0-0.1); Basophils % 0.7 %; Eosinophils # 0.1 10^3/uL (0.0-0.8); Hematocrit 27.6 % (36-47); Lymphocytes # 1.5 10^3/uL (0.8-4.8); Lymphocytes % 21.5 %; Mean Corpuscular HGB Conc 29.7 g/dL (30-55); Mean Corpuscular Hemoglobin 26.7 pg (27-33); Mean Corpuscular Volume 89.9 fl (85-98); Mean Platelet Volume 10.1 fL (7.4-10.4); Monocytes # 0.4 10^3/uL (0.2-0.9); Monocytes % 5.8 %; Neutrophils # 4.88 10^3/uL (1.8-7.7); Neutrophils % 70.4 %; Nucleated Red Blood Cells % 0 %; Platelet Count 522 10^3/cmm (157-399); Red Blood Count 3.07 10^6/uL (3.85-5.65); Red Cell Distribution Width 15.7 % (12.1-15.1); White Blood Count 6.93 10^3/uL (3.29-11.43)
[2024-01-15 15:07] LABS: Alanine Aminotransferase 18 U/L (0-33); Albumin Level 4.1 g/dL (3.5-5.2); Alkaline Phosphatase 189 U/L (35-105); Anion Gap 12.7 (5-19); Aspartate Amino Transferase 18 U/L (0-32); Blood Urea Nitrogen 7 mg/dL (8-23); Calcium 8.4 mg/dL (8.5-10.5); Carbon Dioxide 26 mmol/L (22-29); Chloride 101 mmol/L (98-107); Ferritin 31 ng/mL (15-150); Globulin 3.1 g/dL (1.3-4.6); Glomerular Filtration Rate 71.8 mL/min (90-130); Glucose 99 mg/dL (65-115); Iron 20 ug/dL (37-145); Osmolality Calculated 280 mOsm/kg (285-295); Percent Saturation 6.2 % (20-50); Potassium 3.7 mmol/L (3.5-5.1); Sodium 136 mmol/L (136-145); Total Bilirubin 0.2 mg/dL (0.15-1.2); Total Iron Binding Capacity 321 mcg/dl; Total Protein 7.2 g/dL (6.6-8.7); Unsaturated Iron Binding 301 ug/dL (112-347)
[2024-01-21 08:12] VITALS: BP 177/64; RESP 71; TEMP 36.3; O2SAT 99
[2024-01-21] MEDS: ferric carboxy (IVPB) 750 MG in sodium chloride 0.9% (100 ml) 100 ML 345 MG IV (08:52)
[2024-01-21 09:19] VITALS: BP 173/61; PULSE 69; RESP 18; TEMP 36.1; O2SAT 97
[2024-01-24 11:55] LABS: Soluble Transferrin Receptor 3.76 mg/L (0.76-1.76)
[2024-01-28 08:13] VITALS: BP 170/64; PULSE 83; RESP 18; TEMP 35.7; O2SAT 98
[2024-01-28] MEDS: ferric carboxy (IVPB) 750 MG in sodium chloride 0.9% (100 ml) 100 ML 345 MG IV (08:18)
[2024-01-28 08:45] VITALS: BP 184/72; PULSE 70; RESP 16; TEMP 36.6; O2SAT 98
== END 2024-02-10 23:59 | disposition home or self-care (01) ==
PROVIDERS: Internal Medicine; Nurse Practitioner Family; PCP Family Medicine; Visit Provider Internal Medicine Medical Oncology
DX: Z53.9 Procedure and treatment not carried out, unspecified reason (principal); D50.9 Iron deficiency anemia, unspecified; E61.1 Iron deficiency
CPT/HCPCS: 36415; 80053; 82728; 83540; 83550; 84238; 85025; 96365; J1439

== ENCOUNTER 2024-03-03 12:32 | Oncology outpatient (recurring) (ONCR) | payer MEDICARE, MEDICAID, SELFPAY ==
[2024-03-03 13:14] LABS: Basophils # 0.1 10^3/uL (0.0-0.1); Basophils % 0.8 %; Eosinophils # 0.1 10^3/uL (0.0-0.8); Eosinophils % 1.5 %; Hematocrit 34.5 % (36-47); Lymphocytes # 1.6 10^3/uL (0.8-4.8); Lymphocytes % 26.1 %; Mean Corpuscular HGB Conc 31.3 g/dL (30-55); Mean Corpuscular Hemoglobin 30.3 pg (27-33); Mean Corpuscular Volume 96.6 fl (85-98); Monocytes # 0.3 10^3/uL (0.2-0.9); Monocytes % 4.5 %; Neutrophils # 3.98 10^3/uL (1.8-7.7); Neutrophils % 66.6 %; Nucleated Red Blood Cells % 0 %; Platelet Count 439 10^3/cmm (157-399); Red Blood Count 3.57 10^6/uL (3.85-5.65); Red Cell Distribution Width 17.2 % (12.1-15.1); White Blood Count 5.98 10^3/uL (3.29-11.43)
[2024-03-03 13:31] LABS: Alanine Aminotransferase 22 U/L (0-33); Albumin Level 4.2 g/dL (3.5-5.2); Alkaline Phosphatase 217 U/L (35-105); Anion Gap 13.2 (5-19); Aspartate Amino Transferase 25 U/L (0-32); Blood Urea Nitrogen 12 mg/dL (8-23); Calcium 8.9 mg/dL (8.5-10.5); Carbon Dioxide 29 mmol/L (22-29); Chloride 102 mmol/L (98-107); Ferritin 273 ng/mL (15-150); Globulin 3.3 g/dL (1.3-4.6); Glomerular Filtration Rate 55.5 mL/min (90-130); Glucose 96 mg/dL (65-115); Iron 42 ug/dL (37-145); Osmolality Calculated 290 mOsm/kg (285-295); Percent Saturation 16.2 % (20-50); Potassium 4.2 mmol/L (3.5-5.1); Sodium 140 mmol/L (136-145); Total Bilirubin 0.2 mg/dL (0.15-1.2); Total Iron Binding Capacity 258 mcg/dl; Total Protein 7.5 g/dL (6.6-8.7); Unsaturated Iron Binding 216 ug/dL (112-347)
[2024-03-03 15:08] LABS: Gamma Glutamyl Transferase 18 U/L (5-36)
[2024-03-10 12:04] LABS: Soluble Transferrin Receptor 2.03 mg/L (0.76-1.76)
== END 2024-03-12 23:59 | disposition home or self-care (01) ==
PROVIDERS: Internal Medicine; Nurse Practitioner Family; PCP Family Medicine; Visit Provider Internal Medicine Medical Oncology
DX: E61.1 Iron deficiency; R74.8 Abnormal levels of other serum enzymes; M47.9 Spondylosis, unspecified
CPT/HCPCS: 36415; 80053; 82728; 82977; 83540; 83550; 84238; 85025; 99214

== ENCOUNTER 2024-03-13 09:02 | Outpatient (CLI) | payer MEDICARE, MEDICAID, SELFPAY ==
--- NOTE | 2024-03-13 09:09 | MM_ITS ---
WS: [id number] Bilateral screening 3D tomosynthesis digital mammogram, 03/13/2024 Clinical Data: SCREENING Comparison: 01/15/2014, 11/28/2006. Findings: The breast parenchymal pattern shows heterogeneous density. No spiculated masses or clustered calcifi cations are seen. There are no secondary signs of carcinoma. MM/[place] [id number] Impression: 1. Negative bilateral mammogram unchanged. 2. Recommend annual screening mammograms. BIRADS: 1-Negative FOLLOW UP: 1 Year Follow-up The CAD case checker was used.
--- NOTE | 2024-03-13 09:41 | CT_ITS ---
WS: [id number] LDCT LUNG CANCER SCREENING TECHNIQUE: Noncontrast CT of the chest with coronal and sagittal reformatted images. CLINICAL INFORMATION: NICOTINE DEPENDENCE CIGARETTES COMPARISON: CT 03/01/2023 DLP: 38.20 mGy.cm DIvol: Mean CTDIvol: 0.70 (mGy) All CT scans at [facility] use at least one of these dose optimization techniques: automat ed exposure control; mA and/or kV adjustment per patient size (includes targeted exams where dose is matched to clinical indication); or iterative reconstruction. FINDINGS: Hyperinflation. Moderate chronic emphysematous changes. Hazy groundglass attenuation in the lung base s with areas of air trapping. No mediastinal or hilar lymphadenopathy. Tiny subpleural nodule LEFT up per lobe. No axillary lymphadenopathy. Dense nodular breast tissue inferior far lateral RIGHT breast measuring 2.2 cm. Recommend further evaluation with RIGHT breast ultrasound. Normal caliber thoracic aorta. Aortic calcification.Small esophageal hiatal hernia. Splenic granuloma s. Stable LEFT upper pole renal cyst. Partially visualized RIGHT adrenal adenoma. Postoperative dean es lower cervical spine. CT/CT lung screening [id number] IMPRESSION: Recommend RIGHT breast ultrasound for evaluation of the dense nodular breast ti ssue described above in the inferior far lateral RIGHT breasta LUNG-RADS: 2S-Benign Appearance or Behavior with Significant Findings FOLLOW UP: 12 Month: Continue annual screening with LDCT
== END 2024-03-13 09:03 | disposition home or self-care (01) ==
LOC: RAD 09:02
PROVIDERS: PCP Family Medicine; Visit Provider Family Medicine
DX: Z12.31 Encounter for screening mammogram for malignant neoplasm of breast (principal); F17.210 Nicotine dependence, cigarettes, uncomplicated; Z12.2 Encounter for screening for malignant neoplasm of respiratory organs; R92.333 Mammographic heterogeneous density, bilateral breasts; J43.9 Emphysema, unspecified; K44.9 Diaphragmatic hernia without obstruction or gangrene; D73.89 Other diseases of spleen; N28.1 Cyst of kidney, acquired; D35.02 Benign neoplasm of left adrenal gland
CPT/HCPCS: 71271; 77063; 77067

== ENCOUNTER 2024-03-20 08:00 | Oncology outpatient (recurring) (ONCR) | payer MEDICARE, MEDICAID, SELFPAY ==
[2024-03-13 08:20] VITALS: BP 161/81; PULSE 73; RESP 18; O2SAT 97
[2024-03-13] MEDS: sodium chloride 0.9% 250 ML 75 ML IV (08:30)
[2024-03-13] MEDS: ferric carboxy (PYXIS) 750 MG in sodium chloride 0.9% (100 ml) 100 ML 345 MG IV (08:30)
== END 2024-04-12 23:55 | disposition home or self-care (01) ==
PROVIDERS: PCP Family Medicine; Visit Provider Internal Medicine Medical Oncology
DX: Z53.9 Procedure and treatment not carried out, unspecified reason (principal)
CPT/HCPCS: 96365; J1439; J7050

== ENCOUNTER 2024-03-24 13:22 | Outpatient (CLI) | payer MEDICARE, MEDICAID, SELFPAY ==
--- NOTE | 2024-03-24 13:29 | US_ITS ---
WS: [id number] ULTRASOUND BREAST RIGHT TECHNIQUE: Ultrasound right breast focused area of concern. CLINICAL INFORMATION: ABNORMAL FINDINGS ON R BREAST MAMMOGRAM COMPARISON: CT lung screening 03/13/2024 FINDINGS: Ultrasound lateral RIGHT breast corresponding to the lung screening CT. Dense underlying parenchymal tissue in the area of concern corresponding to the CT findings. No cystic or solid lesions. No suspic ious findings to target for biopsy. Recommend return to annual screening mammography. US/US breast RT limited* [id number] IMPRESSION: BI-RADS 2 benign Recommend return to annual screening mammography.
== END 2024-03-24 13:23 | disposition home or self-care (01) ==
LOC: RAD 13:23
PROVIDERS: PCP Family Medicine; Visit Provider Family Medicine
DX: N64.59 Other signs and symptoms in breast (principal)
CPT/HCPCS: 76642

== ENCOUNTER → 2024-04-16 14:13 | Outpatient (BNVA) | payer MEDICARE, MEDICAID, SELFPAY | PROVIDERS: PCP Family Medicine; Referring Provider Family Medicine; Visit Provider Internal Medicine Cardiovascular Disease | DX: R07.2 Precordial pain (principal); I73.9 Peripheral vascular disease, unspecified; I10 Essential (primary) hypertension; E11.69 Type 2 diabetes mellitus with other specified complication; E78.5 Hyperlipidemia, unspecified; Z72.0 Tobacco use | CPT/HCPCS: 99204 ==

== ENCOUNTER 2024-04-28 12:02 | Outpatient (CLI) | payer MEDICARE, MEDICAID, SELFPAY ==
[2024-04-28 12:47] LABS: Basophils % 0.4 %; Eosinophils # 0.1 10^3/uL (0.0-0.8); Eosinophils % 1.1 %; Hematocrit 32.5 % (36-47); Lymphocytes # 1.6 10^3/uL (0.8-4.8); Lymphocytes % 20.3 %; Mean Corpuscular HGB Conc 30.8 g/dL (30-55); Mean Corpuscular Hemoglobin 30.7 pg (27-33); Mean Corpuscular Volume 99.7 fl (85-98); Mean Platelet Volume 10.4 fL (7.4-10.4); Monocytes # 0.2 10^3/uL (0.2-0.9); Neutrophils # 5.99 10^3/uL (1.8-7.7); Neutrophils % 74.7 %; Nucleated Red Blood Cells % 0 %; Platelet Count 447 10^3/cmm (157-399); Red Blood Count 3.26 10^6/uL (3.85-5.65); Red Cell Distribution Width 14.4 % (12.1-15.1); White Blood Count 8.02 10^3/uL (3.29-11.43)
[2024-04-28 13:06] LABS: INR 0.93 (0.83-1.21); Prothrombin Time (Patient) 12.8 Seconds (12.0-15.1)
[2024-04-28 13:12] LABS: Anion Gap 14.4 (5-19); Blood Urea Nitrogen 7 mg/dL (8-23); Calcium 8.7 mg/dL (8.5-10.5); Carbon Dioxide 26 mmol/L (22-29); Chloride 102 mmol/L (98-107); Glomerular Filtration Rate 62.6 mL/min (90-130); Glucose 107 mg/dL (65-115); Osmolality Calculated 284 mOsm/kg (285-295); Potassium 4.4 mmol/L (3.5-5.1); Sodium 138 mmol/L (136-145)
== END 2024-04-28 12:03 | disposition home or self-care (01) ==
LOC: LAB 12:04
PROVIDERS: PCP Family Medicine; Visit Provider Internal Medicine Cardiovascular Disease
DX: R07.9 Chest pain, unspecified (principal); R07.2 Precordial pain
CPT/HCPCS: 36415; 80048; 85025; 85610

== ENCOUNTER 2024-05-23 09:44 | Outpatient (CLI) | payer MEDICARE, MEDICAID, SELFPAY ==
--- NOTE | 2024-05-23 09:45 | USCV_ITS ---
ChiquitaEmma siddiqi Age: 68 Gender: F : 1955 Exam Date: 05/23/2024 09:48 Ordering Phys: Florian Murphy MD ([email or web address]) Technologist: Moose Scanlon [place] [facility] [place]: Intermittent Claudication RIGHT LEFT Brachial 184.00 mmHg Brachial 180.00 mmHg Pressure (mmHg) Waveform Pressure (mmHg) Waveform 203.00 TOWN ADMINISTRATOR 207.00 202.00 DPA 205.00 1.10 Ankle/Brachial Index 1.13 159.00 Pre-Exercise Toe Pressure 159.00 0.86 Pre-Exercise Toe/Brachial Index 0.86 FINDINGS Resting JUNAID 1.1 on the right side and 1.13 on the left side. Resting TBI of 0.86 bilaterally. CONCLUSIONS Normal resting ABIs and TBI bilaterally No evidence of any significant arterial obstruction, based on the above findings. Dr Carie Forte MD [facility] (Electronically Signed) Final Date: 23 May 2024 13:29 S
== END 2024-05-23 09:45 | disposition home or self-care (01) ==
LOC: RAD 09:45
PROVIDERS: PCP Family Medicine; Visit Provider Internal Medicine Cardiovascular Disease
DX: I73.9 Peripheral vascular disease, unspecified (principal)
CPT/HCPCS: 93922

== ENCOUNTER 2024-05-29 11:07 | Oncology outpatient (recurring) (ONCR) | payer MEDICARE, MEDICAID, SELFPAY ==
[2024-05-29 11:36] LABS: Basophils % 0.4 %; Eosinophils % 0.5 %; Hematocrit 29.1 % (36-47); Lymphocytes # 1.4 10^3/uL (0.8-4.8); Mean Corpuscular HGB Conc 30.6 g/dL (30-55); Mean Corpuscular Hemoglobin 28.2 pg (27-33); Mean Corpuscular Volume 92.1 fl (85-98); Mean Platelet Volume 9.6 fL (7.4-10.4); Monocytes # 0.5 10^3/uL (0.2-0.9); Monocytes % 6.8 %; Neutrophils # 5.94 10^3/uL (1.8-7.7); Neutrophils % 74.9 %; Nucleated Red Blood Cells % 0 %; Platelet Count 375 10^3/cmm (157-399); Red Blood Count 3.16 10^6/uL (3.85-5.65); Red Cell Distribution Width 14.7 % (12.1-15.1); White Blood Count 7.93 10^3/uL (3.29-11.43)
[2024-05-29 12:02] LABS: Alanine Aminotransferase 14 U/L (0-33); Alkaline Phosphatase 175 U/L (35-105); Aspartate Amino Transferase 19 U/L (0-32); Blood Urea Nitrogen 9 mg/dL (8-23); Calcium 8.3 mg/dL (8.5-10.5); Carbon Dioxide 24 mmol/L (22-29); Chloride 101 mmol/L (98-107); Ferritin 76 ng/mL (15-150); Globulin 2.8 g/dL (1.3-4.6); Glomerular Filtration Rate 55.5 mL/min (90-130); Glucose 128 mg/dL (65-115); Iron 40 ug/dL (37-145); Osmolality Calculated 282 mOsm/kg (285-295); Percent Saturation 14.9 % (20-50); Sodium 136 mmol/L (136-145); Total Bilirubin 0.2 mg/dL (0.15-1.2); Total Iron Binding Capacity 268 mcg/dl; Total Protein 6.8 g/dL (6.6-8.7); Unsaturated Iron Binding 228 ug/dL (112-347)
[2024-05-29] MEDS: ferric carboxy (PYXIS) 750 MG in sodium chloride 0.9% (100 ml) 100 ML 345 MG IV (13:59)
[2024-05-29 14:21] VITALS: BP 181/59; PULSE 72; RESP 16; TEMP 37.1; O2SAT 98
== END 2024-06-12 23:59 | disposition home or self-care (01) ==
PROVIDERS: Nurse Practitioner Family; PCP Family Medicine; Visit Provider Internal Medicine Medical Oncology
DX: Z79.899 Other long term (current) drug therapy; D50.9 Iron deficiency anemia, unspecified; F17.210 Nicotine dependence, cigarettes, uncomplicated; M47.9 Spondylosis, unspecified; G89.29 Other chronic pain; D50.8 Other iron deficiency anemias
CPT/HCPCS: 36415; 80053; 82728; 83540; 83550; 85025; 96365; 99214; J1439

== ENCOUNTER 2024-07-07 14:30 | Oncology outpatient (recurring) (ONCR) | payer MEDICARE, MEDICAID, SELFPAY ==
[2024-06-26 10:35] LABS: Basophils % 0.3 %; Eosinophils # 0.1 10^3/uL (0.0-0.8); Eosinophils % 0.8 %; Hematocrit 31.4 % (36-47); Lymphocytes # 1.7 10^3/uL (0.8-4.8); Lymphocytes % 16.9 %; Mean Corpuscular HGB Conc 29.9 g/dL (30-55); Mean Corpuscular Hemoglobin 29.1 pg (27-33); Mean Corpuscular Volume 97.2 fl (85-98); Mean Platelet Volume 10.2 fL (7.4-10.4); Monocytes # 0.4 10^3/uL (0.2-0.9); Monocytes % 4.3 %; Neutrophils # 7.52 10^3/uL (1.8-7.7); Neutrophils % 77.2 %; Nucleated Red Blood Cells % 0 %; Platelet Count 319 10^3/cmm (157-399); Red Blood Count 3.23 10^6/uL (3.85-5.65); Red Cell Distribution Width 16.4 % (12.1-15.1); White Blood Count 9.75 10^3/uL (3.29-11.43)
[2024-06-26 10:55] LABS: Alanine Aminotransferase 15 U/L (0-33); Albumin Level 3.9 g/dL (3.5-5.2); Alkaline Phosphatase 187 U/L (35-105); Blood Urea Nitrogen 10 mg/dL (8-23); Carbon Dioxide 26 mmol/L (22-29); Chloride 98 mmol/L (98-107); Creatinine Clr Calc Pharmacy 43.3416; Ferritin 175 ng/mL (15-150); Globulin 2.5 g/dL (1.3-4.6); Glomerular Filtration Rate 55.5 mL/min (90-130); Glucose 156 mg/dL (65-115); Iron 31 ug/dL (37-145); Osmolality Calculated 280 mOsm/kg (285-295); Sodium 134 mmol/L (136-145); Total Bilirubin 0.2 mg/dL (0.15-1.2); Total Protein 6.4 g/dL (6.6-8.7)
[2024-06-26 11:19] LABS: Anion Gap 14.4 (5-19); Aspartate Amino Transferase 26 U/L (0-32); Percent Saturation 11.3 % (20-50); Potassium 4.4 mmol/L (3.5-5.1); Total Iron Binding Capacity 274 mcg/dl; Unsaturated Iron Binding 243 ug/dL (112-347)
[2024-06-26 12:22] LABS: Reticulocyte % 3.2 % (0.5-2.0)
[2024-06-26 13:04] LABS: Vitamin B12 340 pg/mL (232-1245)
[2024-06-26 13:09] LABS: Folate Level 13.1 ng/mL (4.8-37.3)
[2024-06-26 13:41] LABS: Lactate Dehydrogenase 285 U/L (135-214)
[2024-07-07] MEDS: ferric carboxy (PYXIS) 750 MG in sodium chloride 0.9% (100 ml) 100 ML 345 MG IV (15:05)
[2024-07-07 15:16] VITALS: BP 112/77; PULSE 90; RESP 16; TEMP 36.5; O2SAT 99
[2024-07-07 15:36] VITALS: BP 176/67; PULSE 65; RESP 16; TEMP 36; O2SAT 94
== END 2024-07-12 23:59 | disposition home or self-care (01) ==
PROVIDERS: Internal Medicine; Nurse Practitioner Family; PCP Family Medicine; Visit Provider Internal Medicine Hematology & Oncology
DX: Z53.9 Procedure and treatment not carried out, unspecified reason; Z79.899 Other long term (current) drug therapy; D50.8 Other iron deficiency anemias
CPT/HCPCS: 36415; 80053; 82607; 82728; 82746; 83010; 83540; 83550; 83615; 85025; 85045; 96365; 99213; J1439

== ENCOUNTER → 2024-07-24 14:13 | Outpatient (BNVA) | payer MEDICARE, MEDICAID, SELFPAY | PROVIDERS: PCP Family Medicine; Visit Provider Internal Medicine Cardiovascular Disease | DX: I10 Essential (primary) hypertension (principal); Z72.0 Tobacco use; I20.0 Unstable angina | CPT/HCPCS: 99214 ==

== ENCOUNTER 2024-08-11 06:44 | Oncology outpatient (recurring) (ONCR) | payer MEDICARE, MEDICAID, SELFPAY ==
--- NOTE | 2024-08-11 06:52 | NMCV_ITS ---
NM franki perf SPECT r/s* [id number] Emma Porras Age: 69 Gender: F : 1955 Exam Date: 08/11/2024 07:58 Ordering Phys: Florian Murphy MD ([email or web address]) Technologist: JAYME Yates Exam Location: [facility] [place] Indications: cp STRESS TEST Please see separate stress test report in [facility] for full findings IMAGE PROTOCOL Rest/Stress 1 Lexiscan Day Radiopharmaceutical Dose (mCi) Administration Site Administered by Rest: Tc-99m 10.9 IV Rosy Gibson, BOTTLING EQUIPMENT SALES REPRESENTATIVE Sestamibi Stress:Tc-99m 33 IV Rosy Beltree, BOTTLING EQUIPMENT SALES REPRESENTATIVE Sestamibi Rest: 11-Aug-2024 60 Discovery 630 Stress: 11-Aug-2024 30 Discovery 630 0.4mg Lexiscan. Images obtained in supine and prone position. SPECT RESULTS Technical Quality: Good Raw Data Analysis: Normal Image Corrections: No attenuation or motion correction applied Summed Stress Score: 0 Summed Rest Score: 0 Summed Difference Score: 0 PERFUSION FINDINGS SPECT images demonstrate homogeneous tracer distribution throughout the myocardium. FUNCTIONAL RESULTS (calculated via Gated SPECT) Stress Image LV EF (%): 95 Stress EDV (mL):57 TID: 0.96 Stress ESV (mL):3 FUNCTIONAL FINDINGS: There is normal left ventricular systolic function. IMPRESSIONS 1. Normal myocardial perfusion imaging with no evidence of ischemia 2. LV systolic function is normal Saúl Lora MD (Electronically Signed) Final Date: 11 August 2024 10:57 S
--- NOTE | 2024-08-11 06:52 | ECG_ITS ---
[facility] Test Date: 2024-08-11 Pat Name: Emma Porras Department: Room: Gender: Female Word Processor Operator: : 1955 Requested By: Florian Murphy Order Number: [id number] Naveen MD: Saúl Lora M.D. Interpretive Statements LEXISCAN: Procedure: At the baseline, the blood pressure was 165/68 mmHg with a heart rate of 74 bpm. The electrocardiogram showed normal sinus rhythm, normal axis with baseline ST segment depressions in inferior and lateral leads. The Lexiscan was infused over a period of 20 seconds. A total of 0.4 mg of Lexiscan was infused. The stress phase was continued for a total of 5 minutes. Heart rate was at the end of stress phase was 146 bpm and a blood pressure of 157/67 mmHg. The EKG at the peak infusion revealed normal sinus rhythm with significant ST-T wave depressions in leads II, III, aVF and lateral leads Sestamibi was injected 20 seconds after the Lexiscan infusion. Blood pressure at the end of recovery phase was 172/50 mmHg with a heart rate of 107 bpm. Conclusion: 1. EKG response to lexiscan injection is ischemic. 2. No Lexiscan induced chest pain or cardiac arrhythmia. 3. Normal blood pressure and heart rate response. 4. Sestamibi/sestamibi perfusion scan pending; see separate report. Electronically Signed On 08-19-2024 23:22:19 WEATHERIZATION DIRECTOR by Saúl Lora M.D. [email or web address]
[2024-08-11 06:54] VITALS: BMI 21.8
--- NOTE | 2024-08-11 08:35 | PC.NURSE ---
Patient unable to walk on the treadmill d/t leg pain and dizziness. Treadmill was stopped and the patient was placed on the bed. Symptoms resolved within one minute. Dr. Lora was notified and orders were received to change the Exercise sestamibi stress test to a lexiscan sestamibi stress test.
[2024-08-11] MEDS: regadenoson 0.4 Mg/5 ml Syringe IVP (08:39)
[2024-08-11] MEDS: ondansetron 2 mg/ML SDV 2 mL 4 MG IVP (08:45)
[2024-08-11 09:00] VITALS: BP 172/50; PULSE 107
== END 2024-08-12 23:59 | disposition home or self-care (01) ==
LOC: CDL 06:46 → ONCMED 09:01
PROVIDERS: PCP Family Medicine; Visit Provider Internal Medicine Cardiovascular Disease
DX: R07.9 Chest pain, unspecified (principal)
CPT/HCPCS: 36415; 78452; 93017; 96374; 96375; A9500; J2405; J2785

== ENCOUNTER 2024-08-27 12:10 | Outpatient (CLI) | payer MEDICARE, MEDICAID, SELFPAY ==
[2024-08-27 12:41] LABS: Basophils % 0.5 %; Eosinophils # 0.1 10^3/uL (0.0-0.8); Hematocrit 32.4 % (36-47); Lymphocytes # 1.6 10^3/uL (0.8-4.8); Lymphocytes % 22.5 %; Mean Corpuscular HGB Conc 31.5 g/dL (30-55); Mean Corpuscular Volume 95.3 fl (85-98); Mean Platelet Volume 9.9 fL (7.4-10.4); Monocytes # 0.4 10^3/uL (0.2-0.9); Monocytes % 5.4 %; Neutrophils # 5.11 10^3/uL (1.8-7.7); Neutrophils % 70.2 %; Nucleated Red Blood Cells % 0 %; Platelet Count 422 10^3/cmm (157-399); Red Cell Distribution Width 14.9 % (12.1-15.1); White Blood Count 7.28 10^3/uL (3.29-11.43)
[2024-08-27 12:53] LABS: INR 0.83 (0.83-1.21)
[2024-08-27 13:24] LABS: Anion Gap 13.9 (5-19); Blood Urea Nitrogen 8 mg/dL (8-23); Calcium 8.7 mg/dL (8.5-10.5); Carbon Dioxide 27 mmol/L (22-29); Chloride 96 mmol/L (98-107); Glomerular Filtration Rate 71.5 mL/min (90-130); Glucose 92 mg/dL (65-115); Osmolality Calculated 274 mOsm/kg (285-295); Potassium 3.9 mmol/L (3.5-5.1); Sodium 133 mmol/L (136-145)
== END 2024-08-27 12:11 | disposition home or self-care (01) ==
LOC: LAB 12:11
PROVIDERS: PCP Family Medicine; Visit Provider Internal Medicine Cardiovascular Disease
DX: I10 Essential (primary) hypertension (principal); E11.69 Type 2 diabetes mellitus with other specified complication; E78.5 Hyperlipidemia, unspecified; R07.2 Precordial pain
CPT/HCPCS: 36415; 80048; 85025; 85610

== ENCOUNTER 2024-08-29 06:07 | Outpatient (CLI) | payer MEDICARE, MEDICAID, SELFPAY ==
[2024-08-29] VITALS (37 sets, daily range): BP systolic 112–180; BP diastolic 47–78; PULSE 62–84; RESP 11–21; TEMP 36.5; O2SAT 92–99; BMI 21.8
--- NOTE | 2024-08-29 06:09 | XACV_ITS ---
Exam Room: 2 Ht: 150 cm Wt: 49 kg BSA: 1.43 m2 Gender: Female : 1955 Any Known Allergies: Codeine Exam Priority: Routine Procedure(s): Procedure Description: Diagnostic procedure Procedure Description: Left Heart Catheterization Procedure Description: Left ventriculography Procedure Description: Coronary Angiography MITCHELLJeffrey HYATT; Diagnostic Cath Status: Elective Diagnostic Findings * No disease noted in the Left Main, Left Anterior Descending, Right, or Circumflex coronary arteries. * Coronary angiography shows right dominance. Conclusions 1. No disease noted in the Left Main, Left Anterior Descending, Right, or Circumflex coronary arteries. 2. Normal left ventricular systolic function. Ejection fraction of 65%. Recommendations * Continue current medical management and risk factor modification. Diagnostic RX Recommendation: medical therapy and/or counseling Ventriculography Ejection Fraction: 65.0 % Pressures Phase:Rest AO : 164 / 69 ( 106 ) @ 8:16:00 AM 128 / 65 ( 94 ) @ 8:19:00 AM 141 / 48 ( 85 ) @ 8:25:00 AM 139 / 48 ( 84 ) @ 8:25:00 AM LV : 155 / 5 / 23 @ 8:24:00 AM 151 / 6 / 24 @ 8:25:00 AM 148 / 6 / 23 @ 8:25:00 AM Valves Phase:DefaultPhase AV : 7.0 @ 8:31:47 AM AV Mean Gradient: 10.0 @ 8:31:47 AM 10.0 @ 8:31:47 AM Clinical Evaluation EBL: 5mL-10mL Procedural Details Procedure Consent Obtained. Current Diagnosis : Chest Pain. Pre-Procedure Time Out. Identified patient by full name and date of as verbalized by the patient/guarantor. Does the consent match the physician's order: Yes. Accurate & Complete Informed Consent: Yes. Inpatient/Outpatient History & Physical on Chart: Yes. If H&P is completed, is and addenduem needed: Yes; If yes, is the addendum complete: Yes. Visualize and Verify Site with Patient/Guarantor: N/A. Relevant Radiology Images available: Yes. Pre-op teaching completed and patient verbalized understanding. The risks, benefits, and alternatives of sedation and/or procedure were discussed by physician. The patient agrees to continue. Procedure started. Physician arrived. [facility] Clinical Fraility Score: 3: Managing Well. Collection Systems Technician Indications: Worsening Angina. Chest Pain Symptom Assessment: Typical Angina Symptoms. Correct patient, site and procedure confirmed by cath team. Current diagnosis: Chest Pain. PERRLA. Strong, equal hand editor continuity and script bilaterally. Lungs clear x 5 lobes. IV Site on Arrival: 22 gauge in the left anticubital. IV Fluids: 0.9% NaCl at KVO. 0 mL infused prior to cath lab tech. Oxygen started at 2liters/min via nasal canula. Pre Procedural Pulses: bilateral dorsalis pedis was 2+. Pre Procedural Pulses: bilateral posterior tibial was 2+. Pre Procedural Pulses: bilateral radial was 3+. right groin was prepped with chloroprep then draped in the usual sterile fashion. right radial was prepped with chloroprep then draped in the usual sterile fashion. Baseline sample Acquired. HR: 80 BPM. Physician scrubbed in. Immediate Pre-Procedure Time Out. Correct Patient: Yes; Correct Procedure: Yes; Correct Site: Yes; Correct Patient Position: Yes; Correct Supplies: Yes; Dried Flammable Prep: Yes; Blood Products Available: N/A;. Lidocaine 1% infiltrated to the right radial. Arterial access obtained. A 5 grenadian TIG catheter in over wire. Multiple views taken of left coronary artery. Catheter redirected to the RCA. Multiple views taken of right coronary artery. Catheter removed over the exchange wire. A 5 grenadian Angled Pig catheter in over wire. EDP Sample taken: LV 155/5,23; HR: 77 BPM; SpO2: 99%. LV gram performed in GAY @ 10 mL/second for a total of 30 mL. EDP Sample taken: LV 151/6,24; HR: 79 BPM; SpO2: 98%. Pullback taken: LV 148/6,23; AO 141/48(85); Mean: 10mmHg, Peak to Peak: 7mmHg, SEP: 26sec/min; HR: 78 BPM; SpO2: 97%. Vital chart was stopped. A TR Band was successful obtaining hemostatsis at the Right Radial artery insertion site. Post Procedure: Pulses reassessed and unchanged. PERRLA. Strong, equal hand editor continuity and script bilaterally. No VTE prophylaxis required. Medication's Wasted: Lidocaine 1% = 18 mL. Medication's Wasted: Nitro = 49.8 mcg. Total IV fluids: 30 mL. Post-op diagnosis: Non-obstructive CAD. Complications: None. Estimated blood loss: 5mL-10mL. Responsiveness - Normal response to verbal stimuli; alert and oriented, PERRLA. Airway - Unaffected, no intervention required; spontaneous ventilation. Circulation: W/N/L, pulses unchanged. Nausea/Vomiting: No. Procedure completed. Patient transferred by wheelchair to CPRU. Access Site Site: Right Radial artery Sheath Size: 6 Fr Hemostasis Method: TR Band Hemostasis Success: Successful Procedure Medications Start: 7:50 AM Stop: 7:50 AM Medication: Versed Amount: 1 mg Route: I.V. Start: 7:51 AM Stop: 7:51 AM Medication: Fentanyl Amount: 50 mcg Route: I.V. Start: 7:59 AM Stop: 7:59 AM Medication: Versed Amount: 1 mg Route: I.V. Start: 8:13 AM Stop: 8:13 AM Medication: Fentanyl Amount: 50 mcg Route: I.V. Start: 8:13 AM Stop: 8:13 AM Medication: Nitrogylcerin Amount: 200 mcg Route: I.A. Start: 8:16 AM Stop: 8:16 AM Medication: Heparin Amount: 5000 units Route: I.V. I, the attending physician, have reviewed and verified all procedure medications. Yes, all medications given per verbal order History/Risk Factors Hypertension: Yes Dyslipidemia: Yes Peripheral Arterial Disease (PAD): No Myocardial Infarction (VT): No Obesity: No Renal Disease: No Tobacco Use: Current/Recent(w/in 1 year) Prior Interventions PCI: No CABG: No Valve Surgery: No Report Signatures Finalized by Florian Murphy MD on 09/14/2024 09:30 PM
[2024-08-29] MEDS: aspirin 325 mg Tablet PO (06:37)
[2024-08-29] MEDS: diphenhydrAMINE 50 mg Capsule PO (06:37)
[2024-08-29 06:48] LABS: Basophils # 0.1 10^3/uL (0.0-0.1); Basophils % 0.8 %; Blood Urea Nitrogen 14 mg/dL (8-23); Carbon Dioxide 26 mmol/L (22-29); Chloride 99 mmol/L (98-107); Eosinophils # 0.2 10^3/uL (0.0-0.8); Eosinophils % 1.9 %; Glomerular Filtration Rate 62.5 mL/min (90-130); Glucose 121 mg/dL (65-115); Hematocrit 32.5 % (36-47); Lymphocytes # 1.6 10^3/uL (0.8-4.8); Lymphocytes % 17.3 %; Mean Corpuscular HGB Conc 31.1 g/dL (30-55); Mean Corpuscular Volume 93.4 fl (85-98); Mean Platelet Volume 10.3 fL (7.4-10.4); Monocytes # 0.5 10^3/uL (0.2-0.9); Monocytes % 5.4 %; Neutrophils # 6.94 10^3/uL (1.8-7.7); Neutrophils % 74.3 %; Nucleated Red Blood Cells % 0 %; Osmolality Calculated 284 mOsm/kg (285-295); Platelet Count 461 10^3/cmm (157-399); Red Blood Count 3.48 10^6/uL (3.85-5.65); Sodium 136 mmol/L (136-145); White Blood Count 9.33 10^3/uL (3.29-11.43)
--- NOTE | 2024-08-29 07:48 | W.PM.OPSFHP ---
Same Day Surgery H&P Indication for Procedure/HPI DATE OF PROCEDURE: August 29, 2024 CHIEF COMPLAINT/INDICATIONFOR SURGICAL PROCEDURE: Abnormal stress test Chest pain suspicious for worsening of angina PREOP DIAGNOSIS: Angina/abnormal stress PLANNED PROCEDURE: 69-year-old female past medical history significant for hypertension hyperlipidemia continues tobacco abuse with ongoing chest pain upon [id number] exertion and occasionally at rest relieved with nitroglycerin underwent stress test EKG portion of the stress test was abnormal and because of the fact on guideline medical therapy she remains symptomatic we will brought patient here today for left heart cath/PCI if indicated. Patient has been explained all risk-benefit and alternative for the procedure she understand 2% risk of stroke major bleed in 6% risk of contrast-induced nephropathy hematoma infection urgent emergent bypass surgery vascular injury she would like to proceed with it. Operation Date: 08/29/24 07:00 Proposed Procedures p Cardiac Catheterization(Left) - Florian Murphy MD As above Medications/Allergies* Home Medications Medication Instructions Recorded Confirmed Type cholecalciferol (vitamin D3) 10 400 unit PO QDAY 09/11/19 08/29/24 History mcg (400 unit) capsule albuterol sulfate 90 mcg/actuation 1 inh inhalation 3XD PRN Shortness 09/14/23 08/29/24 History aerosol inhaler Of Breath budesonide 160 mcg-glycopyr 9 1 inh inhalation 1XD 09/14/23 08/29/24 History mcg-formot 4.8 mcg/actuation HFA inhaler (Breztri Aerosphere) fluticasone propionate 50 1 spray intranasal 1XD PRN 09/14/23 08/29/24 History mcg/actuation nasal Secretions spray,suspension pantoprazole 40 mg tablet,delayed 40 mg PO DAILY 09/14/23 08/29/24 History release atorvastatin 20 mg tablet 20 mg PO DAILY 03/03/24 08/29/24 History ferrous sulfate 325 mg (65 mg 325 mg PO DAILY 04/16/24 08/29/24 History iron) tablet hydroxyzine HCl 25 mg tablet 25 mg PO QID PRN Anxiety 04/16/24 08/29/24 History lisinopril 5 mg tablet 20 mg PO DAILY 05/29/24 08/29/24 History Allergies/Adverse Reactions Allergy/AdvReac Type Severity Reaction Status Date / Time Penicillins Allergy Intermediate Hives Verified 07/24/24 14:22 codeine Allergy Mild ADR-Nausea Verified 07/24/24 14:22 Current Medications: Generic Name Dose Route Start Last Admin Trade Name Ambrose PRN Reason Stop Dose Admin Sodium Chloride 1,000 mls @ 50 mls/hr 08/29/24 06:09 08/29/24 06:10 Sodium Chloride 0.9% IV 08/30/24 02:08 Not Given .Q20H ONE Pertinent History/Comorbid Conditions* Medical History (Updated 04/16/24 @ 15:23 by Floiran Murphy MD) Iron deficiency anemia Anxiety and depression GERD (gastroesophageal reflux disease) Fibromyalgia Degenerative joint disease of spine Degenerative arthritis Chronic anemia Surgical History (Updated 03/31/22 @ 23:04 by Harshal Valero MD) History of cystoscopy (2011) Cystoscopy and anterior repair History of hysterectomy with bilateral oophorectomy (1997) S/P laparoscopic cholecystectomy (2007) History of cervical spinal surgery (2004) Cervical laminectomy/fusion History of back surgery (2003) Lumbar laminectomy History of elbow surgery History of shoulder surgery Family History (Updated 03/28/22 @ 16:03 by Caity Mancilla LPN) Diabetes Brother CAD (coronary artery disease) Hyperlipidemia Cancer Grandmother Hypertension Denies family history of Clotting disorder Dementia Psychiatric illness Chronic kidney disease (CKD) Suicide Anesthesia complication Bleeding disorder Lung disease Stroke Social History Smoking and tobacco/nicotine status: current every day tobacco/nicotine user cigarettes Packs smoked per day: 1.5 Years cigarettes smoked: 30 Alcohol intake: never Substance/Drug Use: never Household members: none Current occupational status: employed Current occupation: [employer] Pertinent Exam Findings alert, oriented x 3, clear to auscultation bilaterally, regular rate & rhythm, operative site marked and procedure specific exam findings Recommendations Surgery/Procedure today Coding Level of Care Code Acute Code for Chg Fwd
== END 2024-08-29 11:52 | disposition home or self-care (01) ==
PROVIDERS: PCP Family Medicine; Visit Provider Internal Medicine Cardiovascular Disease
DX: R94.39 Abnormal result of other cardiovascular function study (principal); I10 Essential (primary) hypertension; E78.5 Hyperlipidemia, unspecified; K21.9 Gastro-esophageal reflux disease without esophagitis; M79.7 Fibromyalgia; F17.210 Nicotine dependence, cigarettes, uncomplicated
CPT/HCPCS: 36415; 80048; 85025; 93458; 96374; 99152; 99153; C1769; C1887; C1894; J1644; J2250; J3010; J3490; J7030; Q0163; Q9967

== ENCOUNTER → 2024-09-04 15:00 | Outpatient (BNVA) | payer MEDICARE, MEDICAID, SELFPAY | PROVIDERS: PCP Family Medicine; Visit Provider Nurse Practitioner Family | DX: R07.2 Precordial pain (principal); I10 Essential (primary) hypertension; I20.1 Angina pectoris with documented spasm; F17.210 Nicotine dependence, cigarettes, uncomplicated | CPT/HCPCS: 36415; 80048; 85025; 99213 ==

== ENCOUNTER 2024-09-25 13:17 | Oncology outpatient (recurring) (ONCR) | payer MEDICARE, MEDICAID, SELFPAY ==
[2024-09-25 13:59] LABS: Basophils % 0.4 %; Eosinophils # 0.1 10^3/uL (0.0-0.8); Eosinophils % 0.6 %; Hematocrit 36.7 % (36-47); Lymphocytes # 1.5 10^3/uL (0.8-4.8); Lymphocytes % 16.9 %; Mean Corpuscular HGB Conc 31.1 g/dL (30-55); Mean Corpuscular Hemoglobin 28.5 pg (27-33); Mean Corpuscular Volume 91.8 fl (85-98); Mean Platelet Volume 10.1 fL (7.4-10.4); Monocytes # 0.4 10^3/uL (0.2-0.9); Monocytes % 4.1 %; Neutrophils # 6.98 10^3/uL (1.8-7.7); Neutrophils % 77.8 %; Nucleated Red Blood Cells % 0 %; Platelet Count 474 10^3/cmm (157-399); Red Cell Distribution Width 14.6 % (12.1-15.1); White Blood Count 8.98 10^3/uL (3.29-11.43)
[2024-09-25 14:20] LABS: Alanine Aminotransferase 14 U/L (0-33); Albumin Level 4.2 g/dL (3.5-5.2); Alkaline Phosphatase 231 U/L (35-105); Anion Gap 12.8 (5-19); Aspartate Amino Transferase 18 U/L (0-32); Blood Urea Nitrogen 9 mg/dL (8-23); Calcium 9.3 mg/dL (8.5-10.5); Carbon Dioxide 29 mmol/L (22-29); Chloride 100 mmol/L (98-107); Creatinine Clr Calc Pharmacy 49.0808; Ferritin 93 ng/mL (15-150); Globulin 2.9 g/dL (1.3-4.6); Glomerular Filtration Rate 62.5 mL/min (90-130); Glucose 101 mg/dL (65-115); Homocysteine 17.09 umol/l (0-15); Iron 25 ug/dL (37-145); Lactate Dehydrogenase 174 U/L (135-214); Osmolality Calculated 283 mOsm/kg (285-295); Percent Saturation 8.4 % (20-50); Potassium 4.8 mmol/L (3.5-5.1); Sodium 137 mmol/L (136-145); Total Bilirubin 0.2 mg/dL (0.15-1.2); Total Iron Binding Capacity 297 mcg/dl; Total Protein 7.1 g/dL (6.6-8.7); Unsaturated Iron Binding 272 ug/dL (112-347)
[2024-09-25 14:35] LABS: Vitamin B12 382 pg/mL (232-1245)
[2024-09-25 14:47] LABS: Folate Level 16.4 ng/mL (4.8-37.3)
[2024-09-30 13:24] LABS: Methylmalonic Acid 216 nmol/L (69-390)
== END 2024-10-10 23:59 | disposition home or self-care (01) ==
PROVIDERS: Internal Medicine; PCP Family Medicine; Visit Provider Internal Medicine Hematology & Oncology
DX: D50.8 Other iron deficiency anemias (principal); R07.2 Precordial pain; F17.210 Nicotine dependence, cigarettes, uncomplicated; M47.9 Spondylosis, unspecified; G89.29 Other chronic pain; Z71.6 Tobacco abuse counseling; Z79.899 Other long term (current) drug therapy; Z98.890 Other specified postprocedural states
CPT/HCPCS: 36415; 80053; 82607; 82728; 82746; 83010; 83090; 83540; 83550; 83615; 83921; 85025; 85045; 99213

== ENCOUNTER 2024-11-10 13:00 | Oncology outpatient (recurring) (ONCR) | payer MEDICARE, MEDICAID, SELFPAY ==
[2024-11-04 08:55] LABS: Basophils % 0.5 %; Eosinophils # 0.1 10^3/uL (0.0-0.8); Eosinophils % 1.3 %; Hematocrit 34.5 % (36-47); Lymphocytes # 1.8 10^3/uL (0.8-4.8); Lymphocytes % 21.2 %; Mean Corpuscular HGB Conc 30.7 g/dL (30-55); Mean Corpuscular Hemoglobin 28.3 pg (27-33); Mean Platelet Volume 10.2 fL (7.4-10.4); Monocytes # 0.4 10^3/uL (0.2-0.9); Monocytes % 4.8 %; Neutrophils # 5.99 10^3/uL (1.8-7.7); Neutrophils % 71.8 %; Nucleated Red Blood Cells % 0 %; Platelet Count 444 10^3/cmm (157-399); Red Blood Count 3.75 10^6/uL (3.85-5.65); Red Cell Distribution Width 15.1 % (12.1-15.1); Reticulocyte % 2.6 % (0.5-2.0); White Blood Count 8.34 10^3/uL (3.29-11.43)
[2024-11-04 09:13] LABS: Alanine Aminotransferase 14 U/L (0-33); Albumin Level 4.2 g/dL (3.5-5.2); Alkaline Phosphatase 204 U/L (35-105); Anion Gap 16.2 (5-19); Aspartate Amino Transferase 19 U/L (0-32); Blood Urea Nitrogen 10 mg/dL (8-23); Calcium 9.3 mg/dL (8.5-10.5); Carbon Dioxide 27 mmol/L (22-29); Chloride 96 mmol/L (98-107); Ferritin 57 ng/mL (15-150); Globulin 3.2 g/dL (1.3-4.6); Glomerular Filtration Rate 62.5 mL/min (90-130); Glucose 104 mg/dL (65-115); Iron 133 ug/dL (37-145); Lactate Dehydrogenase 226 U/L (135-214); Osmolality Calculated 279 mOsm/kg (285-295); Percent Saturation 40.1 % (20-50); Potassium 4.2 mmol/L (3.5-5.1); Sodium 135 mmol/L (136-145); Total Bilirubin 0.2 mg/dL (0.15-1.2); Total Iron Binding Capacity 331 mcg/dl; Total Protein 7.4 g/dL (6.6-8.7); Unsaturated Iron Binding 198 ug/dL (112-347)
[2024-11-04 09:28] LABS: Vitamin B12 354 pg/mL (232-1245)
[2024-11-04 09:33] LABS: Folate Level 12.2 ng/mL (4.8-37.3)
[2024-11-10] MEDS: ferric carboxy (PYXIS) 750 MG in sodium chloride 0.9% (100 ml) 100 ML 345 MG IV (13:53)
[2024-11-10 14:26] VITALS: BP 165/81; PULSE 68; RESP 16; TEMP 36.6; O2SAT 98
== END 2024-11-10 23:59 | disposition home or self-care (01) ==
PROVIDERS: PCP Family Medicine; Visit Provider Internal Medicine
DX: D50.8 Other iron deficiency anemias (principal); R07.2 Precordial pain; F17.210 Nicotine dependence, cigarettes, uncomplicated; M47.9 Spondylosis, unspecified; G89.29 Other chronic pain; Z71.6 Tobacco abuse counseling; Z79.899 Other long term (current) drug therapy; Z98.890 Other specified postprocedural states
CPT/HCPCS: 36415; 80053; 82607; 82728; 82746; 83010; 83540; 83550; 83615; 85025; 85045; 96365; J1439

== ENCOUNTER → 2024-12-15 11:45 | Outpatient (BNVA) | payer MEDICARE, MEDICAID, SELFPAY | PROVIDERS: PCP Family Medicine; Visit Provider Nurse Practitioner Family | DX: R07.2 Precordial pain (principal); I10 Essential (primary) hypertension; I20.1 Angina pectoris with documented spasm; F17.210 Nicotine dependence, cigarettes, uncomplicated | CPT/HCPCS: 99214 ==

== ENCOUNTER 2025-01-01 12:55 | Oncology outpatient (recurring) (ONCR) | payer MEDICARE, MEDICAID, SELFPAY ==
[2025-01-01 13:24] LABS: Basophils % 0.4 %; Eosinophils # 0.1 10^3/uL (0.0-0.8); Eosinophils % 1.5 %; Hematocrit 31.4 % (36-47); Lymphocytes # 1.6 10^3/uL (0.8-4.8); Lymphocytes % 19.2 %; Mean Corpuscular HGB Conc 30.6 g/dL (30-55); Mean Corpuscular Hemoglobin 29.2 pg (27-33); Mean Corpuscular Volume 95.4 fl (85-98); Mean Platelet Volume 10.6 fL (7.4-10.4); Monocytes # 0.4 10^3/uL (0.2-0.9); Neutrophils # 6.01 10^3/uL (1.8-7.7); Neutrophils % 73.5 %; Nucleated Red Blood Cells % 0 %; Platelet Count 392 10^3/cmm (157-399); Red Blood Count 3.29 10^6/uL (3.85-5.65); Red Cell Distribution Width 14.6 % (12.1-15.1); White Blood Count 8.17 10^3/uL (3.29-11.43)
[2025-01-01 13:25] LABS: Reticulocyte % 3.3 % (0.5-2.0)
[2025-01-01 13:44] LABS: Alanine Aminotransferase 12 U/L (0-33); Alkaline Phosphatase 189 U/L (35-105); Anion Gap 15.3 (5-19); Aspartate Amino Transferase 17 U/L (0-32); Blood Urea Nitrogen 8 mg/dL (8-23); Calcium 8.8 mg/dL (8.5-10.5); Carbon Dioxide 25 mmol/L (22-29); Chloride 102 mmol/L (98-107); Ferritin 76 ng/mL (15-150); Globulin 2.7 g/dL (1.3-4.6); Glomerular Filtration Rate 55.3 mL/min (90-130); Glucose 96 mg/dL (65-115); Iron 83 ug/dL (37-145); Lactate Dehydrogenase 221 U/L (135-214); Osmolality Calculated 284 mOsm/kg (285-295); Percent Saturation 28.5 % (20-50); Potassium 4.3 mmol/L (3.5-5.1); Sodium 138 mmol/L (136-145); Total Bilirubin 0.2 mg/dL (0.15-1.2); Total Iron Binding Capacity 291 mcg/dl; Total Protein 6.7 g/dL (6.6-8.7); Unsaturated Iron Binding 208 ug/dL (112-347)
[2025-01-01 13:59] LABS: Vitamin B12 338 pg/mL (232-1245)
[2025-01-04 08:35] LABS: Methylmalonic Acid 319 nmol/L (69-390)
== END 2025-01-10 23:59 | disposition home or self-care (01) ==
PROVIDERS: Internal Medicine Medical Oncology; PCP Family Medicine; Visit Provider Internal Medicine
DX: D50.8 Other iron deficiency anemias (principal); R07.2 Precordial pain; F17.210 Nicotine dependence, cigarettes, uncomplicated; D74.9 Methemoglobinemia, unspecified; M47.9 Spondylosis, unspecified; R40.0 Somnolence; Z79.899 Other long term (current) drug therapy
CPT/HCPCS: 36415; 80053; 82607; 82728; 82746; 83010; 83090; 83540; 83550; 83615; 83921; 85025; 85045; 99214

== ENCOUNTER 2025-02-09 15:03 | Oncology outpatient (recurring) (ONCR) | payer MEDICARE, MEDICAID, SELFPAY ==
--- NOTE | 2025-02-09 15:00 | USCV_ITS ---
Emma Porras Age: 69 Gender: F : 1955 Exam Date: 02/09/2025 15:21 Ordering Phys: Scarlet Mcclain NP Technologist: Exam Location: [facility] [place] Indication: murmur BP: 140 / 80 HR: 118 Rhythm: Sinus Technical Quality: MEASUREMENTS (Male / Female) Normal Values 2D ECHO LV Diastolic Diameter PLAX 4.6 cm 4.2 - 5.9 / 3.9 - 5.3 cm IVS Diastolic Thickness 1.0 cm 0.6 - 1.0 / 0.6 - 0.9 cm IVS Systolic Thickness 1.1 cm LVPW Diastolic Thickness 0.9 cm 0.6 - 1.0 / 0.6 - 0.9 cm LVPW Systolic Thickness 1.5 cm LVOT Diameter 2.0 cm LV Ejection Fraction 2D Teich 66.3 % LV Ejection Fraction MOD 4C 66.4 % LV Ejection Fraction MOD 2C 75.9 % LV Ejection Fraction 2C AL 76.2 % LA Diameter 2.8 cm RA Systolic Volume 4C AL 27.5 ml RA Systolic Volume 4C MOD 26.3 ml Aorta at Sinotubular Diameter 2.3 cm IVC Diameter 0.8 cm M-MODE LA Ao Ratio MM 1.1 AV Cusp Separation MM 2.0 cm DOPPLER AV Peak Velocity 194.0 cm/s LVOT Peak Velocity 98.0 cm/s AV Area Cont Eq vti 2.3 cm squared AV Area Cont Eq pk 1.5 cm squared MV Area PHT 3.6 cm squared Mitral E to A Ratio 1.1 TV Peak Velocity 233.5 cm/s TR Peak Velocity 296.0 cm/s TR Peak Gradient 35.0 mmHg TV Peak E Velocity 146.0 cm/s PV Peak Velocity 156.0 cm/s FINDINGS Left Ventricle Is normal in size. LV systolic function is normal with EF of 60 to 65%. No regional wall motion abnormalities are seen. Right Ventricle Normal in size and function Right Atrium Normal in size Left Atrium Normal in size Mitral Valve Structurally normal mitral valve. Trace mitral regurgitation Aortic Valve Structurally normal aortic valve. No significant stenosis. Mild aortic regurgitation Tricuspid Valve Mild tricuspid regurgitation. RVSP is 35 to 40 mmHg. This is consistent with mild pulmonary hypertension Pulmonic Valve Not well-visualized Pericardium Normal Aorta Normal in size IVC Appears to be normal CONCLUSIONS LV systolic function is normal with EF of 60-65%. Trace mitral regurgitation Mild aortic regurgitation Mild tricuspid regurgitation Mild pulmonary attention Saúl Lora MD (Electronically Signed) Final Date: 21 February 2025 20:49 S
== END 2025-02-09 23:59 | disposition home or self-care (01) ==
LOC: ONCMED 15:04
PROVIDERS: PCP Family Medicine; Visit Provider Internal Medicine
DX: R07.2 Precordial pain (principal); I34.0 Nonrheumatic mitral (valve) insufficiency; I35.1 Nonrheumatic aortic (valve) insufficiency; I07.1 Rheumatic tricuspid insufficiency
CPT/HCPCS: 93306

== ENCOUNTER 2025-04-02 12:35 | Oncology outpatient (recurring) (ONCR) | payer MEDICARE, MEDICAID, SELFPAY ==
[2025-04-02 13:40] LABS: Hematocrit 34.4 % (36-47); Hemoglobin 10.90 g/dL (11.27-16.99); Mean Corpuscular HGB Conc 31.7 g/dL (30-55); Mean Corpuscular Hemoglobin 26.9 pg (27-33); Mean Corpuscular Volume 84.9 fl (85-98); Nucleated Red Blood Cells % 0 %; Platelet Count 494 10^3/cmm (157-399); Red Blood Count 4.05 10^6/uL (3.85-5.65); White Blood Count 8.16 10^3/uL (3.29-11.43)
[2025-04-02 13:58] LABS: Alanine Aminotransferase 12 U/L (0-33); Albumin Level 4.2 g/dL (3.5-5.2); Alkaline Phosphatase 198 U/L (35-105); Anion Gap 14.4 (5-19); Blood Urea Nitrogen 9 mg/dL (8-23); Calcium 9.1 mg/dL (8.5-10.5); Carbon Dioxide 28 mmol/L (22-29); Chloride 100 mmol/L (98-107); Creatinine Clr Calc Pharmacy 47.0450; Ferritin 48 ng/mL (15-150); Globulin 3.1 g/dL (1.3-4.6); Glucose 101 mg/dL (65-115); Iron 47 ug/dL (37-145); Osmolality Calculated 285 mOsm/kg (285-295); Potassium 4.4 mmol/L (3.5-5.1); Sodium 138 mmol/L (136-145); Total Iron Binding Capacity 277 mcg/dl; Total Protein 7.3 g/dL (6.6-8.7); Unsaturated Iron Binding 230 ug/dL (112-347)
[2025-04-02 14:07] LABS: Aspartate Amino Transferase 5 U/L (0-32)
== END 2025-04-12 23:59 | disposition home or self-care (01) ==
PROVIDERS: Nurse Practitioner Family; PCP Family Medicine; Visit Provider Internal Medicine
DX: D50.8 Other iron deficiency anemias (principal); F17.210 Nicotine dependence, cigarettes, uncomplicated; M47.9 Spondylosis, unspecified; R03.0 Elevated blood-pressure reading, without diagnosis of hypertension; Z79.899 Other long term (current) drug therapy
CPT/HCPCS: 36415; 80053; 82728; 83540; 83550; 85025; 99213

== ENCOUNTER 2025-04-30 10:00 | Oncology outpatient (recurring) (ONCR) | payer MEDICARE, MEDICAID, SELFPAY ==
[2025-04-23] MEDS: ferric carboxy (PYXIS) 750 MG in sodium chloride 0.9% (100 ml) 100 ML 345 MG IV (10:28)
[2025-04-23 11:05] VITALS: BP 177/73; PULSE 65; RESP 16; TEMP 36.8; O2SAT 94
[2025-04-30] MEDS: ferric carboxy (PYXIS) 750 MG in sodium chloride 0.9% (100 ml) 100 ML 345 MG IV (10:59)
[2025-04-30 11:41] VITALS: BP 164/63; PULSE 89; RESP 18; TEMP 36.6; O2SAT 99
== END 2025-05-12 23:59 | disposition home or self-care (01) ==
PROVIDERS: PCP Family Medicine; Visit Provider Internal Medicine
DX: D50.8 Other iron deficiency anemias; Z79.899 Other long term (current) drug therapy; Z53.9 Procedure and treatment not carried out, unspecified reason
CPT/HCPCS: 96365; 99214; J1439

== ENCOUNTER 2025-05-14 09:43 | Outpatient (CLI) | payer MEDICARE, MEDICAID, SELFPAY ==
--- NOTE | 2025-05-14 09:40 | MM_ITS ---
WS: [id number] BILATERAL 3D TOMOSYNTHESIS DIGITAL SCREENING MAMMOGRAPHY WITH CAD CLINICAL INFORMATION: SCREENING HISTORY: Screening mammogram. No current complaints. COMPARISON: 2023 TECHNIQUE: Bilateral CC and MLO views. FINDINGS: The breasts are composed of heterogeneous fibroglandular density tissue, which can limit the detection of small underlying mass lesions. No suspicious mass, asymmetry, calcifications, or architectural distortion. No evidence of malignancy. MM/MM scr tomosynthesis [id number] IMPRESSION: DENSITY:The breasts are heterogeneously dense, which may obscure small masses. BI-RADS: 1 - Negative FOLLOW UP: 1 Year Follow-up Recommend return to annual screening mammography.
== END 2025-05-14 09:44 | disposition home or self-care (01) ==
LOC: RAD 09:46
PROVIDERS: PCP Family Medicine; Visit Provider Family Medicine
DX: Z12.31 Encounter for screening mammogram for malignant neoplasm of breast (principal); R92.333 Mammographic heterogeneous density, bilateral breasts; R92.323 Mammographic fibroglandular density, bilateral breasts
CPT/HCPCS: 77063; 77067

== ENCOUNTER 2025-05-20 08:41 | Outpatient (CLI) | payer MEDICARE, MEDICAID, SELFPAY ==
--- NOTE | 2025-05-20 08:51 | CT_ITS ---
WS: [id number] LDCT LUNG CANCER SCREENING TECHNIQUE: Noncontrast CT of the chest with coronal and sagittal reformatted images. CLINICAL INFORMATION: NICOTINE DEPENDENCE COMPARISON: 2023 DLP: 33.43 mGy.cm DIvol: Mean CTDIvol: 0.70 (mGy) All CT scans at [facility] use at least one of these dose optimization techniques: automated exposure control; mA and/or kV adjustment per patient size (includes targeted exams where dose is matched to clinical indication); or iterative reconstruction. FINDINGS: Advanced chronic emphysematous changes. Hyperinflation. Stable tiny subpleural nodule LEFT upper lobe. Subpleural nodularity RIGHT lung apex. Few small subcentimeter nodules in both upper lobes. Fibrosis in the lung apices. No new suspicious pulmonary parenchymal abnormalities. Similar-appearing groundglass attenuation in the lung bases with air trapping. Aortic calcification. Mild coronary calcification. No mediastinal or hilar lymphadenopathy. No axillary lymphadenopathy. Splenic granulomas. Small esophageal hiatal hernia. RIGHT adrenal adenoma measuring 1.[address]/CT lung screening [id number] IMPRESSION: LUNG-RADS: 2-Benign Appearance or Behavior FOLLOW UP: 12 Month: Continue annual screening with LDCT
== END 2025-05-20 08:42 | disposition home or self-care (01) ==
LOC: RAD 08:44
PROVIDERS: PCP Family Medicine; Visit Provider Family Medicine
DX: Z12.2 Encounter for screening for malignant neoplasm of respiratory organs (principal); F17.210 Nicotine dependence, cigarettes, uncomplicated; J43.9 Emphysema, unspecified; R91.8 Other nonspecific abnormal finding of lung field; J84.10 Pulmonary fibrosis, unspecified; I25.10 Atherosclerotic heart disease of native coronary artery without angina pectoris; L92.8 Other granulomatous disorders of the skin and subcutaneous tissue; K44.9 Diaphragmatic hernia without obstruction or gangrene; D35.01 Benign neoplasm of right adrenal gland
CPT/HCPCS: 71271

== ENCOUNTER 2025-07-24 07:50 | Oncology outpatient (recurring) (ONCR) | payer MEDICARE, MEDICAID, SELFPAY ==
[2025-07-24 08:15] LABS: Hematocrit 42.1 % (36-47); Hemoglobin 13.40 g/dL (11.27-16.99); Mean Corpuscular HGB Conc 31.8 g/dL (30-55); Mean Corpuscular Hemoglobin 29.0 pg (27-33); Mean Corpuscular Volume 91.1 fl (85-98); Nucleated Red Blood Cells % 0 %; Platelet Count 390 10^3/cmm (157-399); Red Blood Count 4.62 10^6/uL (3.85-5.65); White Blood Count 8.48 10^3/uL (3.29-11.43)
[2025-07-24 08:36] LABS: Alanine Aminotransferase 10 U/L (0-33); Albumin Level 4.3 g/dL (3.5-5.2); Alkaline Phosphatase 230 U/L (35-105); Anion Gap 16.4 (5-19); Aspartate Amino Transferase 16 U/L (0-32); Blood Urea Nitrogen 8 mg/dL (8-23); Calcium 9.4 mg/dL (8.5-10.5); Carbon Dioxide 25 mmol/L (22-29); Chloride 96 mmol/L (98-107); Ferritin 363 ng/mL (15-150); Globulin 3.3 g/dL (1.3-4.6); Glucose 111 mg/dL (65-115); Iron 87 ug/dL (37-145); Osmolality Calculated 273 mOsm/kg (285-295); Potassium 5.4 mmol/L (3.5-5.1); Sodium 132 mmol/L (136-145); Total Iron Binding Capacity 260 mcg/dl; Total Protein 7.6 g/dL (6.6-8.7); Unsaturated Iron Binding 173 ug/dL (112-347)
[2025-07-24 08:50] LABS: Vitamin B12 368 pg/mL (232-1245)
== END 2025-08-12 23:59 | disposition home or self-care (01) ==
PROVIDERS: Internal Medicine; Nurse Practitioner Family; PCP Family Medicine; Visit Provider Nurse Practitioner
DX: Z53.9 Procedure and treatment not carried out, unspecified reason (principal); D64.9 Anemia, unspecified; D50.8 Other iron deficiency anemias; M47.9 Spondylosis, unspecified; R03.0 Elevated blood-pressure reading, without diagnosis of hypertension; F17.210 Nicotine dependence, cigarettes, uncomplicated; Z79.899 Other long term (current) drug therapy
CPT/HCPCS: 36415; 80053; 82607; 82728; 82746; 83010; 83540; 83550; 83615; 85025; 85045; 99213